=== PATIENT | male | born 1955 | race Asian ===

== ENCOUNTER 2016-09-07 14:12 | Inpatient (IN) | payer OTHER, MEDICARE ==
[2016-09-07] MEDS ORDERED: ASPIRIN 81 MG TABLET, CHEWABLE PO ONE (14:53)
[2016-09-07] MEDS ORDERED: DILTIAZEM HCL/D5W 125 MG/125 ML RTUINJ IV ONE (15:01)
[2016-09-07] MEDS ORDERED: DILTIAZEM HCL INJ 25 MG/5 ML VIAL ONE (15:02)
--- NOTE | 2016-09-07 15:07 | ER Document Report ---
ED General - General Chief Complaint: Other Stated Complaint: VOMITING,URINARY PROBLEMS Notes: Patient comes in because he says he is vomited once today, a couple of hours ago. Says he hasn't slept for the last couple of days as he is getting up at night and going to urinate every 30 minutes. Patient has a history of atrial fibrillation and hypertension and decided 4 days ago that these medicines were causing him problems and side effects so he stopped taking all of his medications. The meds that he stopped taking include metoprolol, lisinopril, clonidine, diltiazem, and Plavix. Patient has a history of a hemorrhagic stroke and has a Watchman Device implanted (at [place], in November,.) Patient says he had a hemorrhagic stroke approximately one year ago. Patient was also on medications for NIDDM which he stopped. Denies any chest pains. Denies any difficulty breathing or shortness of breath. Denies any fever. Patient was transported here by EMS. En route, blood pressures were running over 200 systolic with diastolics as high as 160 TRAVEL OUTSIDE OF THE [place] IN LAST 30 DAYS: No - Related Data Allergies/Adverse Reactions: No Known Allergies Allergy (Unverified 08/26/15 19:09) Past Medical History - Social History Smoking Status: Unknown if Ever Smoked Cigarette use (# per day): No Frequency of alcohol use: None Drug Abuse: None Family History: Reviewed & Not Pertinent - Past Medical History Cardiac Medical History: Reports: Hx Atrial Fibrillation, Hx Coronary Artery Disease, Hx Heart Attack - "Massive" heart attack in 2010 had balloon angioplasty, no stents., Hx Hypercholesterolemia, Hx Hypertension Neurological Medical History: Reports: Hx Cerebrovascular Accident - Hemorrhagic left MCA territory infarct on 08/26/2015 Endocrine Medical History: Reports: Hx Diabetes Mellitus Type 2 Past Surgical History: Reports: Hx Cardiac Surgery - watchmen device 2016, Hx Kidney (Renal Surgery) - Renal stent - Immunizations Hx Diphtheria, Pertussis, Tetanus Vaccination: - Unknown Review of Systems - Review of Systems Notes: REVIEW OF SYSTEMS: CONSTITUTIONAL : Denies fever. EENT: Denies eye, ear, nose or mouth or throat pain or other symptoms. CARDIOVASCULAR: Denies chest pain. RESPIRATORY: Denies cough, chest congestion, or shortness of breath. GASTROINTESTINAL: Denies abdominal pain but vomited once. GENITOURINARY: Denies difficulty or painful urinating, urinary frequency, blood in urine. MUSCULOSKELETAL: Denies back or neck pain. Denies joint pain or swelling. SKIN: Denies rash or skin lesions. Has not noted any yellow color to his skin. NEUROLOGICAL: Denies LOC or altered mental status. Denies headache. Denies sensory loss or motor deficits. ALL OTHER SYSTEMS REVIEWED AND NEGATIVE. Physical Exam - Vital signs Vitals: Temp Pulse Resp BP Pulse Ox 98.8 F 134 H 20 196/152 H 97 09/07/16 14:25 09/07/16 14:25 09/07/16 14:25 09/07/16 14:25 09/07/16 14:25 Interpretation: Hypertensive, Tachycardic. No: Febrile - Notes Notes: PHYSICAL EXAMINATION: GENERAL: Well-appearing, in no acute distress. Vital signs show extremely high blood pressure with a diastolic of 150 260 and a rapid ventricular rate of 135 with underlying atrial fibrillation. HEAD: Atraumatic, normocephalic. EYES: Pupils equal round and reactive to light, extraocular movements intact. Sclerae appear to me to be somewhat icteric. ENT: oropharynx clear without exudates. Moist mucous membranes. NECK: Normal range of motion, supple. LUNGS: Breath sounds clear and equal bilaterally. HEART: Irregular rate and rhythm without murmurs. ABDOMEN: Soft, nontender. No guarding or rebound. No masses felt. BACK: No tenderness throughout entire back. EXTREMITIES: Normal range of motion without pain. Negative Homans bilaterally. NEUROLOGICAL: Normal speech, normal gait. Normal sensory, motor, and reflex exams. Awake, alert, and oriented x3. Cranial nerves normal. PSYCH: Normal mood, normal affect. SKIN: Warm, dry, no rashes. Course - Re-evaluation Re-evalutation: 09/07/16 17:27 Discussed case with hospitalist, , who will be admitting the patient to [facility] - Vital Signs Vital signs: Temp Pulse Resp BP Pulse Ox 98.1 F 134 H 20 161/118 H 96 09/07/16 19:06 09/07/16 14:25 09/07/16 19:06 09/07/16 19:06 09/07/16 19:06 - Laboratory Result Diagrams: 09/07/16 15:20 09/07/16 15:20 Laboratory results interpreted by me: 09/07/16 09/07/16 15:20 15:20 RDW 14.5 H Glucose 370 H - Diagnostic Test Radiology results interpreted by me: 09/07/16 17:26 Chest x-ray shows slightly enlarged heart, but otherwise normal. No evidence of congestive heart failure. - EKG Interpretation by Me Rate: Tachycardia Rhythm: A.Fib, PVC's Critical Care Note - Critical Care Note Total time excluding time spent on procedures (mins): 45 Discharge - Discharge Clinical Impression: Atrial fibrillation with RVR, Severe hypertension Admitting Provider: Hospitalist Unit Admitted: [facility]
[2016-09-07] MEDS ORDERED: DILTIAZEM HCL INJ 25 MG/5 ML VIAL IV ONE (15:16)
[2016-09-07] MEDS ORDERED: DILTIAZEM HCL/D5W 125 ML IV PRN ×2 (15:17→17:49)
[2016-09-07 15:44] LABS: ABSOLUTE BASOPHILS # (AUTO) 0.1 10^3/uL (0.0-0.2); ABSOLUTE EOSINOPHILS # (AUTO) 0.1 10^3/uL (0.0-0.6); ABSOLUTE LYMPHOCYTES (AUTO) 2.5 10^3/uL (0.5-4.7); ABSOLUTE MONOCYTES (AUTO) 0.9 10^3/uL (0.1-1.4); ABSOLUTE NEUT (AUTO) 6.7 10^3/uL (1.7-8.2); BASOPHILS % (AUTO) 1.1 % (0-2); EOSINOPHILS % (AUTO) 1.1 % (0-6); HEMATOCRIT 49.5 % (37.9-51.0); HEMOGLOBIN 16.6 g/dL (13.5-17.0); HGB HCT DIFFERENCE 0.3; LYMPHOCYTES % (AUTO) 23.9 % (13-45); MEAN CORPUSCULAR HGB CONC 33.5 g/dL (32.0-36.0); MEAN CORPUSCULAR VOLUME 90 fl (80-97); MONOCYTES % (AUTO) 8.5 % (3-13); RED BLOOD COUNT 5.52 10^6/uL (4.35-5.55); RED CELL DISTRIBUTION WIDTH 14.5 % (11.5-14.0); SEGMENTED NEUTROPHILS % (AUTO) 65.4 % (42-78); WHITE BLOOD COUNT 10.3 10^3/uL (4.0-10.5)
[2016-09-07 16:01] LABS: ALANINE AMINOTRANSFERASE 38 U/L (21-72); ALBUMIN 3.9 g/dL (3.5-5.0); ALKALINE PHOSPHATASE 99 U/L (38-126); ANION GAP 15 (5-19); ASPARTATE AMINO TRANSFERASE 27 U/L (17-59); BILIRUBIN,DIRECT 0.3 mg/dL (0.0-0.4); BILIRUBIN,TOTAL 1.1 mg/dL (0.2-1.3); BLOOD UREA NITROGEN 17 mg/dL (7-20); CALCIUM 10.2 mg/dL (8.4-10.2); CARBON DIOXIDE 25 mmol/L (22-30); CHLORIDE 99 mmol/L (98-107); CREATINE KINASE 158 U/L (55-170); CREATININE RESULT 0.89 mg/dL (0.52-1.25); GLUCOSE 370 mg/dL (75-110); LIPASE 225.6 U/L (23-300); POTASSIUM 4.3 mmol/L (3.6-5.0); SODIUM 138.5 mmol/L (137-145); TOTAL PROTEIN 7.6 g/dL (6.3-8.2)
[2016-09-07 16:18] LABS: CREATINE KINASE MB 2.87 ng/mL (<4.55)
[2016-09-07 16:23] LABS: TROPONIN I 0.034 ng/mL
--- NOTE | 2016-09-07 16:23 | EKG REPORT ---
SEVERITY:- ABNORMAL ECG - ATRIAL FIBRILLATION, V-RATE 98-170 WITH PVC PROBABLE INFERIOR INFARCT, AGE INDETERMINATE CONSIDER POSTERIOR WALL INVOLVEMENT LATERAL LEADS ARE ALSO INVOLVED : Confirmed by: Tae Martinez MD 07-Sep-2016 16:23:02
[2016-09-07] MEDS ORDERED: ACETAMINOPHEN 325 MG TABLET PO PRN (17:44)
[2016-09-07] MEDS ORDERED: ALBUTEROL SULFATE 0.083% NEB 2.5 MG/3 ML AMPUL NEB PRN (17:44)
[2016-09-07] MEDS ORDERED: ONDANSETRON 4 MG TAB.RAPDIS PO PRN (17:44)
[2016-09-07] MEDS ORDERED: ONDANSETRON HCL INJ/PF 4 MG/2 ML SDV IV PRN (17:44)
[2016-09-07] MEDS ORDERED: NORMAL SALINE 1000 ML 1,000 ML IV PRN (17:44)
[2016-09-07] MEDS ORDERED: DEXTROSE 50%-WATER 25 GM/50 ML DISP.SYRIN IV PRN ×2 (17:48)
[2016-09-07] MEDS ORDERED: HYDRALAZINE HCL INJ/PF 20 MG/1 ML SDV IV PRN (17:48)
[2016-09-07] MEDS ORDERED: GLUCAGON,HUMAN RECOMB 1 MG INJ IM PRN (17:48)
[2016-09-07] MEDS ORDERED: DEXTROSE 40% GEL 15 GM TUBE PO PRN ×2 (17:48)
[2016-09-07] MEDS ORDERED: CLONIDINE HCL 0.2 MG TABLET PO ONE (17:48)
--- NOTE | 2016-09-07 18:09 | PDOC H&P ---
History of Present Illness Admission Date/PCP: 09/07/16 17:36 JOSEFINA DILLARD Patient complains of: Nausea, vomiting and palpitations History of Present Illness: DANNI CROUCH is a 61 year old male who has a history of hypertension and atrial fibrillation who stopped all of his medication 4 days ago because he thought they were making him feel poorly. He since that time has had problems with palpitations noted to have A. fib with rapid ventricular rate. He also has had vomiting and nausea for the last day and presented with a blood pressure that was very elevated. Patient has been on clonidine, lisinopril, metoprolol, diltiazem for his blood pressure has not taken any of those the last 4 days. Patient was started diltiazem drip for his atrial fibrillation. Patient denies having any chest pain associated with this. He denies any loss of consciousness. He denies any hematuria. He denies any shortness of breath or dyspnea on exertion. he is admitted for A. fib with rapid ventricular rate along with hypertensive emergency. Past Medical History Cardiac Medical History: Reports: Atrial Fibrillation, Coronary Artery Disease, Myocardial Infarction - "Massive" heart attack in 2010 had balloon angioplasty, no stents., Hyperlipidema, Hypertension Pulmonary Medical History: Reports: None EENT Medical History: Reports: None Neurological Medical History: Reports: Ischemic CVA Endocrine Medical History: Reports: Diabetes Mellitus Type 2 Malignancy Medical History: Reports: None Musculoskeltal Medical History: Reports: Gout Skin Medical History: Reports: None Psychiatric Medical History: Reports: None Traumatic Medical History: Reports: None Hematology: Reports: None Infectious Medical History: Reports: None Past Surgical History Past Surgical History: Reports: Cardiac Catheterization - With balloon angioplasty., Vascular Surgery - Renal artery stent placement, Other - Watchman' s device placed at [place] last year Social History Information Source: Patient Lives with: Spouse/Significant other Smoking Status: Former Smoker Frequency of Alcohol Use: None Hx Recreational Drug Use: No Drugs: None Hx Prescription Drug Abuse: No - Advance Directive Resuscitation Status: Full Code Surrogate healthcare decision maker:: His Family History Family History: Mother at age 85 with no chronic health problems. Father at age 62 with coronary artery disease. Parental Family History Reviewed: Yes Children Family History Reviewed: No Sibling(s) Family History Reviewed.: No Medication/Allergy Allergies/Adverse Reactions: No Known Allergies Allergy (Unverified 08/26/15 19:09) Review of Systems Constitutional: ABSENT: chills, fever(s), headache(s), weight gain, weight loss Eyes: ABSENT: visual disturbances Ears: ABSENT: hearing changes Cardiovascular: PRESENT: palpitations. ABSENT: chest pain, dyspnea on exertion , edema, orthropnea Respiratory: ABSENT: cough, hemoptysis Gastrointestinal: PRESENT: nausea, vomiting. ABSENT: abdominal pain, constipation, diarrhea, hematemesis, hematochezia Genitourinary: ABSENT: dysuria, hematuria Musculoskeletal: ABSENT: joint swelling Neurological: PRESENT: weakness - Right-sided weakness from previous CVA. Psychiatric: ABSENT: anxiety, depression Endocrine: ABSENT: cold intolerance, heat intolerance, polydipsia, polyuria Hematologic/Lymphatic: ABSENT: easy bleeding, easy bruising Physical Exam Vital Signs: Temp Pulse Resp BP Pulse Ox 98.8 F 134 H 20 197/137 H 95 09/07/16 14:25 09/07/16 14:25 09/07/16 17:21 09/07/16 17:21 09/07/16 17:21 General appearance: PRESENT: no acute distress, well-developed, well-nourished Head exam: PRESENT: atraumatic, normocephalic Eye exam: PRESENT: conjunctiva pink, EOMI, PERRLA. ABSENT: scleral icterus Ear exam: PRESENT: normal external ear exam Mouth exam: PRESENT: moist, tongue midline Neck exam: ABSENT: carotid bruit, JVD, lymphadenopathy, thyromegaly Respiratory exam: PRESENT: clear to auscultation patrizia. ABSENT: rales, rhonchi, wheezes Cardiovascular exam: PRESENT: RRR. ABSENT: diastolic murmur, rubs, systolic murmur Pulses: PRESENT: normal dorsalis pedis pul Vascular exam: PRESENT: normal capillary refill GI/Abdominal exam: PRESENT: normal bowel sounds, soft. ABSENT: distended, guarding, mass, organolmegaly, rebound, tenderness Rectal exam: PRESENT: deferred Extremities exam: ABSENT: calf tenderness, clubbing, pedal edema Neurological exam: PRESENT: alert, awake, oriented to person, oriented to place , oriented to time, oriented to situation, CN II-XII grossly intact, motor sensory deficit - Strength is 4 out of 5 on the right Psychiatric exam: PRESENT: appropriate affect Skin exam: PRESENT: dry, intact, warm. ABSENT: cyanosis, rash Results Impressions: Chest X-Ray 09/07/16 14:54 IMPRESSION: NO ACUTE RADIOGRAPHIC FINDING IN THE CHEST. NO SIGNIFICANT CHANGE FROM PRIOR STUDY. Assessment & Plan - Diagnosis (1) Atrial fibrillation with RVR Is this a current diagnosis for this admission?: YesPlan: The patient has atrial fibrillation with rapid ventricular rate secondary to stopping his medications. Patient currently is on a diltiazem drip. We'll check serial cardiac enzymes to make certain he has not had an acute cardiac event. The patient has not been on anticoagulation for his atrial fibrillation because of having a hemorrhagic stroke previously. He has had a watchman device placed at [place] last year. (2) Hypertensive emergency Is this a current diagnosis for this admission?: YesPlan: The patient has very elevated blood pressures. This is secondary to stopping his medications especially his clonidine. We will go ahead and give 0.3 clonidine now and continue with the diltiazem drip and restart him on his oral medications. We'll also give IV hydralazine if needed. The patient does not have any evidence for congestive heart failure but did have nausea and vomiting most likely related to the uncontrolled hypertension. (3) Diabetes mellitus Is this a current diagnosis for this admission?: YesPlan: He has not been taking his medications. We'll start him on Lantus as well as sliding scale insulin. (4) Coronary artery disease Is this a current diagnosis for this admission?: YesPlan: Patient will be restarted on his Plavix. We'll check serial cardiac enzymes to make certain he has not had an acute cardiac event as cause for his age fibrillation. He denies having any chest pain evening in spite of having very elevated blood pressures. (5) CVA (cerebral vascular accident) Is this a current diagnosis for this admission?: YesPlan: Patient has had a previous CVA. We'll continue with his Plavix as he had been taking prior to 4 days ago. - Time Time Spent: 50 to 70 Minutes - Inpatient Certification Medical Necessity: Need Close Monitoring Due to Risk of Patient Decompensation - Plan Summary Plan Summary: We'll admit as an inpatient as I anticipate this require greater than a 2 midnight stay because of his need for IV medications for control of his blood pressure.
[2016-09-07] MEDS ORDERED: METOPROLOL TARTRATE 50 MG TABLET PO ONE (18:15)
[2016-09-07] MEDS ORDERED: METOPROLOL TARTRATE PF/INJ 5 MG/5 ML SDV IV ONE (18:20)
[2016-09-07] MEDS: INSULIN LISPRO 100 UNIT/ML 3 ML VIAL SUBCUT PRN (18:27)
[2016-09-07] MEDS: CLONIDINE HCL 0.2 MG TABLET PO SCH (21:00)
[2016-09-07] MEDS: METOPROLOL TARTRATE 50 MG TABLET PO SCH (21:00)
[2016-09-07] MEDS: FAMOTIDINE 20 MG TABLET PO SCH (21:00)
[2016-09-07] MEDS ORDERED: INSULIN GLARGINE,HUM.REC.ANLOG 300 UNIT/3 ML INSULN.PEN SUBCUT ONE (21:45)
[2016-09-07 21:55] LABS: CREATINE KINASE MB 2.13 ng/mL (<4.55); TROPONIN I 0.034 ng/mL
[2016-09-07] MEDS ORDERED: INSULIN GLARGINE,HUM.REC.ANLOG 300 UNIT/3 ML INSULN.PEN SUBCUT SCH (22:00)
[2016-09-08 04:19] LABS: ANION GAP 7 (5-19); BLOOD UREA NITROGEN 26 mg/dL (7-20); CALCIUM 9.1 mg/dL (8.4-10.2); CARBON DIOXIDE 25 mmol/L (22-30); CHLORIDE 103 mmol/L (98-107); CREATINE KINASE 90 U/L (55-170); CREATININE RESULT 1.19 mg/dL (0.52-1.25); MAGNESIUM 2.1 mg/dL (1.6-2.3); POTASSIUM 4.3 mmol/L (3.6-5.0); SODIUM 135.1 mmol/L (137-145)
[2016-09-08 04:27] LABS: HEMATOCRIT 43.5 % (37.9-51.0); MEAN CORPUSCULAR HEMOGLOBIN 29.8 pg (27.0-33.4); MEAN CORPUSCULAR HGB CONC 33.2 g/dL (32.0-36.0); MEAN CORPUSCULAR VOLUME 90 fl (80-97); RED BLOOD COUNT 4.85 10^6/uL (4.35-5.55); RED CELL DISTRIBUTION WIDTH 14.5 % (11.5-14.0); WHITE BLOOD COUNT 7.1 10^3/uL (4.0-10.5)
[2016-09-08 04:29] LABS: CREATINE KINASE MB 1.63 ng/mL (<4.55); TROPONIN I 0.035 ng/mL
[2016-09-08 04:33] LABS: GLUCOSE 511 mg/dL (75-110)
[2016-09-08 04:39] LABS: HEMOGLOBIN 14.5 g/dL (13.5-17.0)
[2016-09-08] MEDS: INSULIN LISPRO 100 UNIT/ML 3 ML VIAL SUBCUT PRN ×2 (04:56→11:58)
[2016-09-08] MEDS: CLONIDINE HCL 0.2 MG TABLET PO SCH (09:00)
[2016-09-08] MEDS: METOPROLOL TARTRATE 50 MG TABLET PO SCH (09:01)
[2016-09-08] MEDS: FAMOTIDINE 20 MG TABLET PO SCH (09:02)
[2016-09-08] MEDS ORDERED: DILTIAZEM HCL 180 MG CAPSULE.CR PO SCH (10:00)
[2016-09-08] MEDS ORDERED: CLOPIDOGREL BISULFATE 75 MG TABLET PO SCH (10:00)
[2016-09-08 10:06] LABS: CREATINE KINASE MB 1.84 ng/mL (<4.55); TROPONIN I 0.02 ng/mL
[2016-09-08 11:23] VITALS: BP 139/112
--- NOTE | 2016-09-08 13:11 | PDOC DISCHARGE SUMMARY ---
General - Admit/Disc Date/PCP Admission Date/Primary Care Provider: 09/07/16 17:44 GEORGE DILLARD-Delfina Discharge Date: 09/08/16 - Discharge Diagnosis (1) Atrial fibrillation with RVR Is this a current diagnosis for this admission?: YesSummary: Patient was switched from IV diltiazem to by mouth diltiazem has remained rate controlled. (2) Hypertensive emergency Is this a current diagnosis for this admission?: YesSummary: Most likely made worse by his clonidine withdrawal. Patient has been restarted back on his clonidine and his blood pressure is in a good range. I have decreased his clonidine dose to 0.3 twice a day. Will defer to his primary care doctor whether or not he should continue on clonidine given his recent noncompliance. (3) Diabetes mellitus Is this a current diagnosis for this admission?: YesSummary: Patient was restarted on his oral agents. (4) Coronary artery disease Is this a current diagnosis for this admission?: YesSummary: Troponins have been flat. Patient instructed to take his Plavix every day. (5) CVA (cerebral vascular accident) Is this a current diagnosis for this admission?: YesSummary: Patient has a history of a hemorrhagic CVA. Because of this he is not a good candidate for anticoagulation for his atrial fibrillation. Continue Plavix. - Additional Information Resuscitation Status: Full Code Discharge Diet: Cardiac, Diabetic Discharge Activity: Activity As Tolerated Home Medications: Aspirin [Aspirin EC] 81 mg PO DAILY 09/08/16 Atorvastatin Calcium [Lipitor 20 mg Tablet] 20 mg PO DAILY 09/08/16 Clonidine HCl [Catapres 0.2 mg Tablet] 0.3 mg PO Q12 tablet 09/08/16 Clopidogrel Bisulfate [Plavix 75 mg Tablet] 75 mg PO DAILY 09/08/16 Diltiazem HCl [Cardizem Cd 180 mg Capsule] 360 mg PO DAILY #30 capsule.cr Ergocalciferol (Vitamin D2) [Vitamin D2] 50,000 unit PO ARREDONDO@1000 09/08/16 Metformin HCl [Glucophage] 1,000 mg PO BID 09/08/16 Metoprolol Tartrate [Lopressor 50 mg Tablet] 50 mg PO Q12 #60 tablet 09/08/16 History of Present Illness History of Present Illness: DANNI CROUCH is a 61 year old male who has a history of hypertension and atrial fibrillation who stopped all of his medication 4 days ago because he thought they were making him feel poorly. He since that time has had problems with palpitations noted to have A. fib with rapid ventricular rate. He also has had vomiting and nausea for the last day and presented with a blood pressure that was very elevated. Patient has been on clonidine, lisinopril, metoprolol, diltiazem for his blood pressure has not taken any of those the last 4 days. Patient was started diltiazem drip for his atrial fibrillation. Patient denies having any chest pain associated with this. He denies any loss of consciousness. He denies any hematuria. He denies any shortness of breath or dyspnea on exertion. he is admitted for A. fib with rapid ventricular rate along with hypertensive emergency. Hospital Course Hospital Course: Patient was admitted with atrial fibrillation with rapid ventricular rate. He also had hypertensive emergency secondary to stopping his antihypertensives. Patient was started on a diltiazem drip as well as been restarted on his clonidine and other medications. His heart rate quickly returned to normal rate and he was switched from IV diltiazem to by mouth diltiazem. His clonidine dose was decreased and his metoprolol dose both were decreased because of some relative bradycardia with heart rates in the 50s. He was asymptomatic with this. Was also given insulin overnight and is instructed to restart his oral hypoglycemic agents. He had cardiac enzymes drawn and they were flat. Physical Exam Vital Signs: Temp Pulse Resp BP Pulse Ox 97.6 F 84 20 139/112 H 98 09/08/16 12:08 09/08/16 12:08 09/08/16 12:08 09/08/16 12:08 09/08/16 12:08 Intake & Output 09/07/16 09/08/16 09/09/16 06:59 06:59 06:59 Intake Total 1655 Output Total 300 Balance 1355 Weight 80.7 kg General appearance: PRESENT: no acute distress Eye exam: PRESENT: conjunctiva pink. ABSENT: scleral icterus Mouth exam: PRESENT: moist, tongue midline Neck exam: ABSENT: carotid bruit, JVD, lymphadenopathy, thyromegaly Respiratory exam: PRESENT: clear to auscultation patrizia. ABSENT: rales, rhonchi, wheezes Cardiovascular exam: PRESENT: RRR. ABSENT: diastolic murmur, rubs, systolic murmur GI/Abdominal exam: PRESENT: normal bowel sounds, soft. ABSENT: distended, guarding, mass, organolmegaly, rebound, tenderness Extremities exam: ABSENT: calf tenderness, clubbing, pedal edema Neurological exam: PRESENT: alert, awake, oriented to person, oriented to place , oriented to time, oriented to situation, CN II-XII grossly intact, motor sensory deficit - Right-sided weakness. Psychiatric exam: PRESENT: appropriate affect Skin exam: PRESENT: dry, intact, warm. ABSENT: cyanosis, rash Results Laboratory Results: 09/08/16 03:30 09/08/16 06:46 09/08/16 09/08/16 09/08/16 03:30 03:30 06:46 WBC 7.1 RBC 4.85 Hgb 14.5 D Hct 43.5 MCV 90 MCH 29.8 MCHC 33.2 RDW 14.5 H Plt Count 199 Sodium 135.1 L Potassium 4.3 Chloride 103 Carbon Dioxide 25 Anion Gap 7 BUN 26 H Creatinine 1.19 Est GFR ( Amer) > 60 Est GFR (Non-Af Amer) > 60 Glucose 511 H* 382 H Calcium 9.1 Magnesium 2.1 09/07/16 09/07/16 09/08/16 21:10 21:10 03:30 Creatine Kinase 123 90 CK-MB (CK-2) 2.13 Troponin I 0.034 09/08/16 09/08/16 09/08/16 03:30 09:10 09:10 Creatine Kinase 88 CK-MB (CK-2) 1.63 1.84 Troponin I 0.035 0.020 Impressions: Chest X-Ray 09/07/16 14:54 IMPRESSION: NO ACUTE RADIOGRAPHIC FINDING IN THE CHEST. NO SIGNIFICANT CHANGE FROM PRIOR STUDY. Qualifiers PATEINT BEING DISCHARGED WITH ANY OF THE FOLLOWING DIAGNOSIS?: No Plan Discharge Plan: Patient is discharged to home. The patient is educated on the importance of being compliant with his medications especially the the clonidine because of his hypertensive emergency. Time Spent: Greater than 30 Minutes
== END 2016-09-08 13:13 | disposition home or self-care (01) | DRG 309 ==
LOC: ER 14:12 → EH 17:36 → UNDOADMIN 17:36 → EH 17:44 → 3W 22:24
PROVIDERS: ADMIT Internal Medicine; ATTEND Internal Medicine
DX: I48.91 Unspecified atrial fibrillation (principal); I16.1 Hypertensive emergency; T46.5X6A Underdosing of other antihypertensive drugs, initial encounter; I10 Essential (primary) hypertension; I25.10 Atherosclerotic heart disease of native coronary artery without angina pectoris; M10.9 Gout, unspecified; E11.9 Type 2 diabetes mellitus without complications; I25.2 Old myocardial infarction; Z86.73 Personal history of transient ischemic attack (TIA), and cerebral infarction without residual deficits; Z93.6 Other artificial openings of urinary tract status; Z87.891 Personal history of nicotine dependence; Z82.49 Family history of ischemic heart disease and other diseases of the circulatory system; Z91.128 Patient's intentional underdosing of medication regimen for other reason; Z79.02 Long term (current) use of antithrombotics/antiplatelets; Z79.899 Other long term (current) drug therapy
CPT/HCPCS: 36415; 71010; 80048; 80053; 82550; 82553; 82947; 82962; 83690; 83735; 84484; 85025; 85027; 93005; 93010; 94660; 96365; 96366; 99291; J1815; J3490; J7030

== ENCOUNTER 2016-12-13 12:46 | Inpatient (IN) | payer OTHER, MEDICARE ==
--- NOTE | 2016-12-13 13:04 | ER Document Report ---
ED Medical Screen (RME) - General Chief Complaint: General Weakness Stated Complaint: WEAKNESS Time Seen by Provider: 12/13/16 13:02 Mode of Arrival: Wheelchair Information source: Patient TRAVEL OUTSIDE OF THE [place] IN LAST 30 DAYS: No - HPI Patient complains to provider of: weakness Onset: Other - pt. has h/o DM and HTN (has stopped meds for both) and has had generalized weakness for the past 8 days with exacerbation today. - Related Data Allergies/Adverse Reactions: No Known Allergies Allergy (Unverified 08/26/15 19:09) Past Medical History - Past Medical History Cardiac Medical History: Reports: Hx Atrial Fibrillation, Hx Coronary Artery Disease, Hx Heart Attack - "Massive" heart attack in 2010 had balloon angioplasty, no stents., Hx Hypercholesterolemia, Hx Hypertension Neurological Medical History: Reports: Hx Cerebrovascular Accident - Hemorrhagic left MCA territory infarct on 08/26/2015 Endocrine Medical History: Reports: Hx Diabetes Mellitus Type 2 Renal/ Medical History: Denies: Hx Peritoneal Dialysis Musculoskeltal Medical History: Reports Hx Gout Psychiatric Medical History: Denies: Hx Depression Past Surgical History: Reports: Hx Cardiac Catheterization - With balloon angioplasty., Hx Cardiac Surgery - watchmen device 2015, Hx Kidney (Renal Surgery) - Renal stent, Hx Vascular Surgery - Renal artery stent placement, Other - Watchman's device placed at [place] last year - Immunizations Hx Diphtheria, Pertussis, Tetanus Vaccination: - Unknown Physical Exam - Vital signs Vitals: Temp Pulse Resp BP Pulse Ox 98.3 F 82 16 148/100 H 96 12/13/16 12:51 12/13/16 12:51 12/13/16 12:51 12/13/16 12:51 12/13/16 12:51 Course - Vital Signs Vital signs: Temp Pulse Resp BP Pulse Ox 98.3 F 82 16 148/100 H 96 12/13/16 12:51 12/13/16 12:51 12/13/16 12:51 12/13/16 12:51 12/13/16 12:51
[2016-12-13 13:55] LABS: ABSOLUTE BASOPHILS # (AUTO) 0.1 10^3/uL (0.0-0.2); ABSOLUTE EOSINOPHILS # (AUTO) 0.2 10^3/uL (0.0-0.6); ABSOLUTE LYMPHOCYTES (AUTO) 1.9 10^3/uL (0.5-4.7); ABSOLUTE MONOCYTES (AUTO) 0.5 10^3/uL (0.1-1.4); ABSOLUTE NEUT (AUTO) 3.7 10^3/uL (1.7-8.2); BASOPHILS % (AUTO) 0.9 % (0-2); EOSINOPHILS % (AUTO) 2.9 % (0-6); HEMATOCRIT 45.3 % (37.9-51.0); HEMOGLOBIN 15.1 g/dL (13.5-17.0); LYMPHOCYTES % (AUTO) 29.8 % (13-45); MEAN CORPUSCULAR HEMOGLOBIN 30.1 pg (27.0-33.4); MEAN CORPUSCULAR HGB CONC 33.4 g/dL (32.0-36.0); MEAN CORPUSCULAR VOLUME 90 fl (80-97); MONOCYTES % (AUTO) 8.6 % (3-13); RED BLOOD COUNT 5.03 10^6/uL (4.35-5.55); SEGMENTED NEUTROPHILS % (AUTO) 57.8 % (42-78); WHITE BLOOD COUNT 6.4 10^3/uL (4.0-10.5)
--- NOTE | 2016-12-13 13:57 | RADIOLOGY REPORT (SQ) ---
EXAM DESCRIPTION: CHEST PA/LAT COMPLETED DATE/TIME: 12/13/2016 1:37 pm REASON FOR STUDY: weakness COMPARISON: August 2005 EXAM PARAMETERS: NUMBER OF VIEWS: two views TECHNIQUE: Digital Frontal and Lateral radiographic views of the chest acquired. RADIATION DOSE: NA LIMITATIONS: none FINDINGS: LUNGS AND PLEURA: No opacities, masses or pneumothorax. No pleural effusion. MEDIASTINUM AND HILAR STRUCTURES: No masses or contour abnormalities. HEART AND VASCULAR STRUCTURES: Cardiac silhouette remains at the upper limits of normal in size. Tor tuous thoracic aorta is again identified BONES: No acute findings. HARDWARE: None in the chest. OTHER: No other significant finding. IMPRESSION: No significant interval change. No acute findings. Other findings as noted above TECHNICAL DOCUMENTATION: JOB ID: [id number] [employer]- All Rights Reserved
[2016-12-13 14:04] LABS: APPEARANCE,URINE CLEAR; BILIRUBIN,URINE NEGATIVE (NEGATIVE); GLUCOSE, URINE >=500 mg/dL (NEGATIVE); KETONES,URINE NEGATIVE (NEGATIVE); LEUKOCYTE ESTERASE,URINE NEGATIVE (NEGATIVE); NITRITE,URINE NEGATIVE (NEGATIVE); PROTEIN,URINE 100 mg/dL (NEGATIVE); URINE SPECIFIC GRAVITY 1.031; UROBILINOGEN,URINE NEGATIVE mg/dL (<2.0)
[2016-12-13 14:10] LABS: ALANINE AMINOTRANSFERASE 31 U/L (21-72); ALKALINE PHOSPHATASE 141 U/L (38-126); ANION GAP 10 (5-19); ASPARTATE AMINO TRANSFERASE 21 U/L (17-59); BILIRUBIN,DIRECT 0.3 mg/dL (0.0-0.4); BILIRUBIN,TOTAL 0.5 mg/dL (0.2-1.3); BLOOD UREA NITROGEN 18 mg/dL (7-20); CALCIUM 9.1 mg/dL (8.4-10.2); CARBON DIOXIDE 26 mmol/L (22-30); CHLORIDE 95 mmol/L (98-107); CREATINE KINASE 144 U/L (55-170); CREATININE RESULT 0.75 mg/dL (0.52-1.25); POTASSIUM 4.2 mmol/L (3.6-5.0); SODIUM 130.9 mmol/L (137-145); TOTAL PROTEIN 6.2 g/dL (6.3-8.2)
[2016-12-13 14:20] LABS: GLUCOSE 665 mg/dL (75-110)
--- NOTE | 2016-12-13 14:20 | ER Document Report ---
ED General - General Chief Complaint: General Weakness Stated Complaint: WEAKNESS Time Seen by Provider: 12/13/16 14:03 Mode of Arrival: Wheelchair Information source: Patient Notes: Patient presents emergency department with complaints of feeling weak for the past 2 weeks. Patient reports history of CVA, diabetes, hypertension, atrial fib. Patient reports that he has quit taking all his medications, except for the Cardizem, when he had a stroke. He reports all those medications made him feel sleepy he had blurred vision discoloration in his feet and he just did not feel good. He reports since he quit taking all his medications he feels a lot better. He can see his , he is not sleeping as much. He reports the past 2 weeks he has felt weak but denies vomiting diarrhea. He reports today he ran out of his cardizem. TRAVEL OUTSIDE OF THE [place] IN LAST 30 DAYS: No - HPI Onset: Other - 2 weeks Onset/Duration: Persistent Quality of pain: No pain Severity: None Associated symptoms: None Exacerbated by: Denies Relieved by: Denies Similar symptoms previously: No Recently seen / treated by doctor: No - Related Data Allergies/Adverse Reactions: No Known Allergies Allergy (Verified 12/13/16 13:04) Home Medications: Current Home Medications Aspirin [Aspirin 81 mg Chewable Tablet] 81 mg PO DAILY 12/13/16 [History] Clonidine HCl [Catapres 0.3 mg Tablet] 0.3 mg PO Q12 12/13/16 [History] Diltiazem HCl [Diltiazem ER] 360 mg PO DAILY 12/13/16 [History] Metformin HCl [Glucophage] 1,000 mg PO Q12 12/13/16 [History] Past Medical History - General Information source: Patient - Social History Smoking Status: Current Every Day Smoker Cigarette use (# per day): Yes Chew tobacco use (# tins/day): No Frequency of alcohol use: Social Drug Abuse: None Lives with: Family Family History: Reviewed & Not Pertinent Patient has suicidal ideation: No Patient has homicidal ideation: No - Past Medical History Cardiac Medical History: Reports: Hx Atrial Fibrillation, Hx Coronary Artery Disease, Hx Heart Attack - "Massive" heart attack in 2010 had balloon angioplasty, no stents., Hx Hypercholesterolemia, Hx Hypertension Neurological Medical History: Reports: Hx Cerebrovascular Accident - Hemorrhagic left MCA territory infarct on 08/26/2015 Endocrine Medical History: Reports: Hx Diabetes Mellitus Type 2 Renal/ Medical History: Denies: Hx Peritoneal Dialysis Musculoskeltal Medical History: Reports Hx Gout Psychiatric Medical History: Denies: Hx Depression Past Surgical History: Reports: Hx Cardiac Catheterization - With balloon angioplasty., Hx Cardiac Surgery - watchmen device 2016, Hx Kidney (Renal Surgery) - Renal stent, Hx Vascular Surgery - Renal artery stent placement, Other - Watchman's device placed at [place] last year - Immunizations Hx Diphtheria, Pertussis, Tetanus Vaccination: - Unknown Review of Systems - Review of Systems Notes: Review HPI for review of systems., All other systems negative Physical Exam - Vital signs Vitals: Temp Pulse Resp BP Pulse Ox 98.3 F 82 16 148/100 H 96 12/13/16 12:51 12/13/16 12:51 12/13/16 12:51 12/13/16 12:51 12/13/16 12:51 - Notes Notes: PHYSICAL EXAMINATION: GENERAL: Well-appearing and in no acute distress nontoxic looking HEAD: Atraumatic, normocephalic. EYES: Pupils equal round and reactive to light, extraocular movements intact, sclera anicteric, conjunctiva are normal. ENT: nares patent, oropharynx clear without exudates. Moist mucous membranes. NECK: Normal range of motion, supple without lymphadenopathy LUNGS: CTAB and equal. No wheezes rales or rhonchi. HEART: afib, irregular, RVR at 110-140's ABDOMEN: Soft, no tenderness. No guarding, no rebound EXTREMITIES: no pitting edema, weakness bilateral hands NEUROLOGICAL: Cranial nerves grossly intact. PSYCH: Normal mood, normal affect. SKIN: Warm, Dry, normal turgor, no rashes or lesions noted Course - Re-evaluation Re-evalutation: 12/13/16 14:40 Dr. Reid regarding patient diabetes atrial fib with RVR. He advised iv insulin bolus, driip. Consult with Dr. Faria. He agrees with iv insulin, cardizem drip at 5mg/hr. 12/13/16 14:45 pt updated on admission, dr faria in the ed with patient. patient instructed on admission, plan of care - Vital Signs Vital signs: Temp Pulse Resp BP Pulse Ox 98.3 F 113 H 32 H 141/90 H 98 12/13/16 12:54 12/13/16 17:18 12/13/16 16:00 12/13/16 17:30 12/13/16 16:00 - Laboratory Result Diagrams: 12/13/16 13:25 12/13/16 16:22 Laboratory results interpreted by me: 12/13/16 12/13/16 13:25 13:47 Sodium 130.9 L Chloride 95 L Glucose 665 H* Alkaline Phosphatase 141 H Total Protein 6.2 L Albumin 3.0 L Urine Protein 100 H Urine Glucose (UA) >=500 H Urine Blood SMALL H - Diagnostic Test Radiology reviewed: Image reviewed, Reports reviewed - EKG Interpretation by Me Rhythm: A.Fib When compared to previous EKG there are: No significant change - Consults dr faria Reason for consultation: 12/13/16 14:45 weakness, afib, rvr, uncontrolled diabetes, Consulted provider: will come to ER Discharge - Discharge Clinical Impression: Weakness, Atrial fibrillation with RVR Uncontrolled diabetes mellitus Qualifiers: Diabetes mellitus type: type 2 Diabetes mellitus complication status: with hyperglycemia Admitting Provider: Jordi faria Unit Admitted: [facility]
[2016-12-13 14:22] LABS: CREATINE KINASE MB 3.6 ng/mL (<4.55); TROPONIN I 0.033 ng/mL
[2016-12-13] MEDS ORDERED: NORMAL SALINE 1000 ML 1,000 ML IV ONE (14:23)
[2016-12-13] MEDS ORDERED: INSULIN REG, HUMAN 100 UNIT/ML 3 ML VIAL (PYX) IV ONE ×2 (14:30→14:32)
[2016-12-13] MEDS: DILTIAZEM HCL/D5W 125 ML IV PRN (15:02)
[2016-12-13] MEDS ORDERED: DEXTROSE 40% GEL 15 GM TUBE PO PRN ×2 (15:36)
[2016-12-13] MEDS ORDERED: DEXTROSE 50%-WATER 25 GM/50 ML DISP.SYRIN IV PRN ×2 (15:36)
[2016-12-13] MEDS ORDERED: GLUCAGON,HUMAN RECOMB 1 MG INJ IM PRN (15:36)
[2016-12-13] MEDS ORDERED: NORMAL SALINE 100 ML with INSULIN REGULAR, HUMAN 100 UNIT IV PRN ×2 (15:41)
[2016-12-13] MEDS ORDERED: NORMAL SALINE 1000 ML 1,000 ML IV PRN (15:41)
[2016-12-13] MEDS ORDERED: DILTIAZEM HCL/D5W 125 ML IV PRN (15:43)
[2016-12-13] MEDS ORDERED: ONDANSETRON HCL INJ/PF 4 MG/2 ML SDV IV PRN (15:44)
[2016-12-13] MEDS ORDERED: ACETAMINOPHEN 325 MG TABLET PO PRN (15:44)
[2016-12-13] MEDS ORDERED: HYDRALAZINE HCL INJ/PF 20 MG/1 ML SDV IV PRN (15:57)
--- NOTE | 2016-12-13 16:05 | PDOC H&P ---
History of Present Illness Admission Date/PCP: 12/13/16 15:07 STACEY DILLARDC Patient complains of: Weakness History of Present Illness: DANNI CROUCH is a 61 year old male with past medical history of atrial fibrillation, diabetes, hypertension, peripheral neuropathy, CVA presents to the emergency department after not taking any of his medications for 1 year with generalized weakness. Patient states that he was on 30 medications and that they were making him feel very fatigued, causing swelling, and causing irritable bowel syndrome so he stopped all his medications and these issues resolved. Medications reconciled below are not accurate as patient has not been taking any medication for 1 year. Past Medical History Cardiac Medical History: Reports: Atrial Fibrillation, Coronary Artery Disease, Myocardial Infarction - "Massive" heart attack in 2010 had balloon angioplasty, no stents., Hyperlipidema, Hypertension Neurological Medical History: Reports: Ischemic CVA, Other - peripheral neuropathy Endocrine Medical History: Reports: Diabetes Mellitus Type 2 Musculoskeltal Medical History: Reports: Gout Psychiatric Medical History: Denies: Depression Past Surgical History Past Surgical History: Reports: Cardiac Catheterization - With balloon angioplasty., Vascular Surgery - Renal artery stent placement, Other - Watchman' s device placed at [place] last year Social History Information Source: Patient Lives with: Family Smoking Status: Current Every Day Smoker Frequency of Alcohol Use: None Hx Recreational Drug Use: No Drugs: None Hx Prescription Drug Abuse: No - Advance Directive Resuscitation Status: Full Code Family History Family History: Other - Rheumatic heart disease-father Parental Family History Reviewed: Yes Children Family History Reviewed: Yes Sibling(s) Family History Reviewed.: Yes Medication/Allergy Home Medications: Aspirin [Aspirin 81 mg Chewable Tablet] 81 mg PO DAILY 12/13/16 Clonidine HCl [Catapres 0.3 mg Tablet] 0.3 mg PO Q12 12/13/16 Diltiazem HCl [Diltiazem ER] 360 mg PO DAILY 12/13/16 Metformin HCl [Glucophage] 1,000 mg PO Q12 12/13/16 Allergies/Adverse Reactions: No Known Allergies Allergy (Verified 12/13/16 13:04) Review of Systems Constitutional: PRESENT: fatigue, weakness. ABSENT: chills, fever(s), headache( s), weight gain, weight loss Eyes: ABSENT: visual disturbances Ears: ABSENT: hearing changes Cardiovascular: ABSENT: chest pain, dyspnea on exertion, edema, orthropnea, palpitations Respiratory: ABSENT: cough, hemoptysis Gastrointestinal: ABSENT: abdominal pain, constipation, diarrhea, hematemesis, hematochezia, nausea, vomiting Genitourinary: ABSENT: dysuria, hematuria Musculoskeletal: ABSENT: joint swelling Integumentary: ABSENT: rash, wounds Neurological: PRESENT: focal weakness. ABSENT: abnormal gait, abnormal speech, confusion, dizziness, syncope Psychiatric: ABSENT: anxiety, depression, homidical ideation, suicidal ideation Endocrine: ABSENT: cold intolerance, heat intolerance, polydipsia, polyuria Hematologic/Lymphatic: ABSENT: easy bleeding, easy bruising Physical Exam Vital Signs: Temp Pulse Resp BP Pulse Ox 98.3 F 82 16 148/100 H 96 12/13/16 12:51 12/13/16 12:51 12/13/16 12:51 12/13/16 12:51 12/13/16 12:51 PHYSICAL EXAM: GENERAL: Appears well, no acute distress HEENT: Normocephalic, no scleral icterus, conjunctiva clear, EOEM intact, PERRLA , moist mucous membranes NECK: trachea midline, no thyromegally RESPIRATORY: Clear to auscultation, no wheezes/rhonchi CARDIAC: Irregular/tachycardic ABDOMEN: Soft, no distension, no tenderness, no guarding, normal bowel sounds, negative Jean-Baptiste sign RECTAL: deferred : deferred EXTREMITIES: No edema, cyanosis, clubbing MUSCULOSKELETAL: No joint swelling or deformity VASCULAR: normal peripheral pulses NEUROLOGIC: Alert, oriented to person/place/time, normal speech, cranial nerves grossly intact, contractures in both upper hands SKIN: No rash, no wounds, no worrisome skin lesions PSYCHIATRIC: Normal mood, normal affect Results Laboratory Results: Labs- All tests 24 hr 12/13/16 12/13/16 12/13/16 13:25 13:25 13:25 WBC 6.4 RBC 5.03 Hgb 15.1 Hct 45.3 MCV 90 MCH 30.1 MCHC 33.4 RDW 14.0 Plt Count 236 Seg Neutrophils % 57.8 Lymphocytes % 29.8 Monocytes % 8.6 Eosinophils % 2.9 Basophils % 0.9 Absolute Neutrophils 3.7 Absolute Lymphocytes 1.9 Absolute Monocytes 0.5 Absolute Eosinophils 0.2 Absolute Basophils 0.1 Sodium 130.9 L Potassium 4.2 Chloride 95 L Carbon Dioxide 26 Anion Gap 10 BUN 18 Creatinine 0.75 Est GFR ( Amer) > 60 Est GFR (Non-Af Amer) > 60 Glucose 665 H* Calcium 9.1 Total Bilirubin 0.5 Direct Bilirubin 0.3 Indirect Bilirubin Not Reportable Neonat Total Bilirubin Not Reportable AST 21 ALT 31 Alkaline Phosphatase 141 H Creatine Kinase 144 CK-MB (CK-2) 3.60 Troponin I 0.033 Total Protein 6.2 L Albumin 3.0 L Urine Color Urine Appearance Urine pH Ur Specific Cromwell Urine Protein Urine Glucose (UA) Urine Ketones Urine Blood Urine Nitrite Urine Bilirubin Urine Urobilinogen Ur Leukocyte Esterase Urine WBC (Auto) Urine RBC (Auto) Squamous Epi Cells Auto Urine Ascorbic Acid 12/13/16 13:47 WBC RBC Hgb Hct MCV MCH MCHC RDW Plt Count Seg Neutrophils % Lymphocytes % Monocytes % Eosinophils % Basophils % Absolute Neutrophils Absolute Lymphocytes Absolute Monocytes Absolute Eosinophils Absolute Basophils Sodium Potassium Chloride Carbon Dioxide Anion Gap BUN Creatinine Est GFR ( Amer) Est GFR (Non-Af Amer) Glucose Calcium Total Bilirubin Direct Bilirubin Indirect Bilirubin Neonat Total Bilirubin AST ALT Alkaline Phosphatase Creatine Kinase CK-MB (CK-2) Troponin I Total Protein Albumin Urine Color STRAW Urine Appearance CLEAR Urine pH 6.0 Ur Specific [place] 1.031 Urine Protein 100 H Urine Glucose (UA) >=500 H Urine Ketones NEGATIVE Urine Blood SMALL H Urine Nitrite NEGATIVE Urine Bilirubin NEGATIVE Urine Urobilinogen NEGATIVE Ur Leukocyte Esterase NEGATIVE Urine WBC (Auto) 1 Urine RBC (Auto) 3 Squamous Epi Cells Auto <1 Urine Ascorbic Acid NEGATIVE Impressions: Chest X-Ray 12/13/16 13:01 IMPRESSION: No significant interval change. No acute findings. Other findings as noted above Assessment & Plan - Diagnosis (1) Atrial fibrillation with RVR Is this a current diagnosis for this admission?: YesPlan: Continue Cardizem drip initiated in the emergency department. Start metoprolol 50 mg twice daily. Patient will need to be on anticoagulation eventually. I will discussed the risk and benefits of long-term anticoagulation with him first. For now continue aspirin and prophylactic Lovenox. (2) Uncontrolled diabetes mellitus Qualifiers: Diabetes mellitus type: type 2 Diabetes mellitus complication status: with hyperglycemia Is this a current diagnosis for this admission?: YesPlan: Continue insulin drip initiated in the emergency department. Continue IV fluids. Once patient is under better control I will transition him to oral glipizide. I will avoid metformin as this caused patient irritable bowel syndrome before. (3) Hypertension Is this a current diagnosis for this admission?: YesPlan: Cardizem drip for now. As needed IV hydralazine. Start metoprolol 50 mg twice daily. (4) Neuropathy Is this a current diagnosis for this admission?: YesPlan: Likely secondary to long-standing diabetes. I will check B12 level as well. Physical therapy to evaluate. (5) CVA (cerebral vascular accident) Is this a current diagnosis for this admission?: YesPlan: Resume aspirin therapy for now. I will need to discuss risk and benefits of anticoagulation with patient for atrial fibrillation. Physical therapy to evaluate. (6) Coronary artery disease Is this a current diagnosis for this admission?: YesPlan: Start patient back on aspirin regimen. Check lipid panel in the morning and initiate statin if indicated. Start patient on metoprolol 50 mg twice daily. (7) Noncompliance Is this a current diagnosis for this admission?: Yes - Time Time Spent: Greater than 70 Minutes
--- NOTE | 2016-12-13 16:32 | EKG REPORT ---
SEVERITY:- ABNORMAL ECG - ATRIAL FIBRILLATION, V-RATE 78-160 NONSPECIFIC T ABNORMALITIES, ANT-LAT LEADS : Confirmed by: Moe Devi 13-Dec-2016 16:32:33
[2016-12-13 16:54] LABS: ANION GAP 9 (5-19); BLOOD UREA NITROGEN 17 mg/dL (7-20); CALCIUM 9.4 mg/dL (8.4-10.2); CARBON DIOXIDE 26 mmol/L (22-30); CHLORIDE 100 mmol/L (98-107); POTASSIUM 3.9 mmol/L (3.6-5.0)
[2016-12-13] MEDS ORDERED: ASPIRIN 81 MG TABLET, ENT COATED PO ONE (17:00)
[2016-12-13 17:08] LABS: GLUCOSE 479 mg/dL (75-110)
[2016-12-13] MEDS: METOPROLOL TARTRATE 50 MG TABLET PO SCH (18:22)
[2016-12-13 20:09] LABS: ANION GAP 7 (5-19); BLOOD UREA NITROGEN 14 mg/dL (7-20); CARBON DIOXIDE 26 mmol/L (22-30); CHLORIDE 101 mmol/L (98-107); CREATININE RESULT 0.66 mg/dL (0.52-1.25); POTASSIUM 3.4 mmol/L (3.6-5.0); SODIUM 134.4 mmol/L (137-145)
[2016-12-13 20:19] LABS: GLUCOSE 411 mg/dL (75-110)
[2016-12-13] MEDS ORDERED: DEXTROSE 5%-NORMAL SALINE 1,000 ML IV PRN (21:11)
[2016-12-13 21:28] LABS: ADD ON TESTING BLD IN LAB ACKNOWLEDGE
[2016-12-13] MEDS: POTASSIUM CHLORIDE 20 MEQ/15 ML UDCUP PO SCH ×2 (21:53→23:58)
[2016-12-13 22:09] LABS: MAGNESIUM 1.9 mg/dL (1.6-2.3)
[2016-12-14 00:16] LABS: ANION GAP 8 (5-19); BLOOD UREA NITROGEN 14 mg/dL (7-20); CALCIUM 9.2 mg/dL (8.4-10.2); CARBON DIOXIDE 26 mmol/L (22-30); CHLORIDE 107 mmol/L (98-107); CREATININE RESULT 0.67 mg/dL (0.52-1.25); GLUCOSE 128 mg/dL (75-110); POTASSIUM 3.5 mmol/L (3.6-5.0); SODIUM 141.3 mmol/L (137-145)
[2016-12-14] MEDS: POTASSIUM CHLORIDE 20 MEQ/15 ML UDCUP PO SCH ×2 (01:53→04:31)
[2016-12-14 04:09] LABS: ABSOLUTE EOSINOPHILS # (AUTO) 0.2 10^3/uL (0.0-0.6); ABSOLUTE LYMPHOCYTES (AUTO) 1.8 10^3/uL (0.5-4.7); ABSOLUTE MONOCYTES (AUTO) 0.7 10^3/uL (0.1-1.4); ABSOLUTE NEUT (AUTO) 5.1 10^3/uL (1.7-8.2); BASOPHILS % (AUTO) 0.6 % (0-2); EOSINOPHILS % (AUTO) 2.4 % (0-6); HEMATOCRIT 41.3 % (37.9-51.0); HEMOGLOBIN 13.9 g/dL (13.5-17.0); HGB HCT DIFFERENCE 0.4; LYMPHOCYTES % (AUTO) 23.6 % (13-45); MEAN CORPUSCULAR HEMOGLOBIN 30.2 pg (27.0-33.4); MEAN CORPUSCULAR HGB CONC 33.7 g/dL (32.0-36.0); MEAN CORPUSCULAR VOLUME 90 fl (80-97); MONOCYTES % (AUTO) 8.7 % (3-13); RED CELL DISTRIBUTION WIDTH 13.9 % (11.5-14.0); SEGMENTED NEUTROPHILS % (AUTO) 64.7 % (42-78); WHITE BLOOD COUNT 7.9 10^3/uL (4.0-10.5)
[2016-12-14 04:24] LABS: ANION GAP 6 (5-19); BLOOD UREA NITROGEN 14 mg/dL (7-20); CALCIUM 8.9 mg/dL (8.4-10.2); CARBON DIOXIDE 25 mmol/L (22-30); CHLORIDE 107 mmol/L (98-107); CHOLESTEROL 267.31 mg/dL (0-200); CREATININE RESULT 0.67 mg/dL (0.52-1.25); Direct HDL 47 mg/dL (>40); GLUCOSE 235 mg/dL (75-110); MAGNESIUM 1.9 mg/dL (1.6-2.3); POTASSIUM 4.1 mmol/L (3.6-5.0); SODIUM 137.6 mmol/L (137-145); TRIGLYCERIDES 92 mg/dL (<150)
[2016-12-14 04:34] LABS: DIRECT LDL 222 mg/dL (<100)
[2016-12-14] MEDS ORDERED: INSULIN LISPRO 100 UNIT/ML 3 ML VIAL SUBCUT PRN ×3 (05:35→11:23)
[2016-12-14] MEDS: METOPROLOL TARTRATE 50 MG TABLET PO SCH (06:35)
[2016-12-14] MEDS ORDERED: NORMAL SALINE 1000 ML 1,000 ML IV PRN ×2 (07:48→11:23)
[2016-12-14] MEDS ORDERED: GLYBURIDE 5 MG TABLET PO SCH (08:00)
--- NOTE | 2016-12-14 08:12 | RADIOLOGY REPORT (SQ) ---
EXAM DESCRIPTION: CT HEAD WITHOUT COMPLETED DATE/TIME: 12/14/2016 7:56 am REASON FOR STUDY: encephalopathy COMPARISON: None. TECHNIQUE: Axial images acquired through the brain without intravenous contrast. Images reviewed wi th bone, brain and subdural windows. Images stored on PACS. All CT scanners at this facility use dose modulation, iterative reconstruction, and/or weight based d osing when appropriate to reduce radiation dose to as low as reasonably achievable (ALARA). [facility]: Dose Right [facility]: CareDose [facility]: Dose Right [facility]: Teradose 4D [facility]: Smart LOAG RADIATION DOSE: Up-to-date CT equipment and radiation dose reduction techniques were employed. CTDIv ol: 64.6 mGy. DLP: 1163 mGy-cm. mGy. LIMITATIONS: None. FINDINGS: VENTRICLES: Normal size and contour. CEREBRUM: No masses. No hemorrhage. No midline shift. Normal pichardo/white matter differentiation. N o evidence for acute infarction. CEREBELLUM: No masses. No hemorrhage. No alteration of density. No evidence for acute infarction. EXTRAAXIAL SPACES: No fluid collections. No masses. ORBITS AND GLOBE: No intra- or extraconal masses. Normal contour of globe without masses. CALVARIUM: No fracture. PARANASAL SINUSES: No fluid or mucosal thickening. SOFT TISSUES: No mass or hematoma. OTHER: No other significant finding. IMPRESSION: NORMAL BRAIN CT WITHOUT CONTRAST. TECHNICAL DOCUMENTATION: JOB ID: [id number] Quality ID # [id number]: Final reports with documentation of one or more dose reduction techniques (e.g., Au tomated exposure control, adjustment of the mA and/or kV according to patient size, use of iterative reconstruction technique) 2010 [employer]- All Rights Reserved
[2016-12-14 08:36] LABS: ANION GAP 9 (5-19); BLOOD UREA NITROGEN 15 mg/dL (7-20); CARBON DIOXIDE 22 mmol/L (22-30); CHLORIDE 105 mmol/L (98-107); CREATININE RESULT 0.73 mg/dL (0.52-1.25); GLUCOSE 348 mg/dL (75-110); POTASSIUM 4.5 mmol/L (3.6-5.0); SODIUM 136.3 mmol/L (137-145)
[2016-12-14] MEDS ORDERED: DILTIAZEM HCL/D5W 125 ML IV PRN (08:52)
[2016-12-14] MEDS: DILTIAZEM HCL/D5W 125 ML IV PRN (08:55)
--- NOTE | 2016-12-14 09:14 | PDOC PROGRESS REPORT ---
Subjective Progress Note for:: 12/14/16 Subjective:: Patient is having a significant expressive aphasia this morning. He seems somewhat confused as well. Nursing reports that he was able to get himself out of bed quickly and attempt to ambulate but they were able to stop him and get him back to bed. The nurse states that he did not seem to have any weakness in either leg while he was doing this. Physical Exam Vital Signs: Temp Pulse Resp BP Pulse Ox 97.8 F 77 16 136/98 H 98 12/14/16 04:00 12/14/16 02:00 12/14/16 04:00 12/14/16 06:01 12/14/16 04:00 Intake & Output 12/13/16 12/14/16 12/15/16 06:59 06:59 06:59 Intake Total 2295 Output Total 1125 Balance 1170 Weight 76.2 kg GENERAL: No acute distress HEENT: Conjunctiva clear, nonicteric, moist mucous membranes, no JVD, midline trachea RESPIRATORY: Clear to auscultation bilaterally, no wheezes, no rhonchi CARDIAC: Irregular rhythm, normal rate, no murmur ABDOMEN: Soft, nondistended, nontender, positive bowel sounds, no rebound, no guarding EXTREMETIES: No edema, cyanosis, clubbing NEUROLOGIC: Alert, expressive aphasia, contractures and weakness in all 4 extremities as noted on admission, however his right upper extremity seems more weak to me than it did on admission yesterday SKIN: No rash, wounds PSYCH: Unusual affect Results Laboratory Results: 12/14/16 04:00 12/14/16 08:13 12/13/16 12/13/16 12/13/16 16:22 16:22 19:45 WBC RBC Hgb Hct MCV MCH MCHC RDW Plt Count Seg Neutrophils % Lymphocytes % Monocytes % Eosinophils % Basophils % Absolute Neutrophils Absolute Lymphocytes Absolute Monocytes Absolute Eosinophils Absolute Basophils Sodium 135.0 L 134.4 L Potassium 3.9 3.4 L Chloride 100 101 Carbon Dioxide 26 26 Anion Gap 9 7 BUN 17 14 Creatinine 0.70 0.66 Est GFR ( Amer) > 60 > 60 Est GFR (Non-Af Amer) > 60 > 60 Glucose 479 H* 411 H* Calcium 9.4 9.0 Magnesium Triglycerides Cholesterol LDL Cholesterol Direct VLDL Cholesterol HDL Cholesterol Vitamin B12 768.0 TSH 12/13/16 12/13/16 12/13/16 19:45 19:45 23:49 WBC RBC Hgb Hct MCV MCH MCHC RDW Plt Count Seg Neutrophils % Lymphocytes % Monocytes % Eosinophils % Basophils % Absolute Neutrophils Absolute Lymphocytes Absolute Monocytes Absolute Eosinophils Absolute Basophils Sodium 141.3 Potassium 3.5 L Chloride 107 Carbon Dioxide 26 Anion Gap 8 BUN 14 Creatinine 0.67 Est GFR ( Amer) > 60 Est GFR (Non-Af Amer) > 60 Glucose 128 H Calcium 9.2 Magnesium 1.9 Triglycerides Cholesterol LDL Cholesterol Direct VLDL Cholesterol HDL Cholesterol Vitamin B12 TSH 1.28 12/14/16 12/14/16 12/14/16 04:00 04:00 08:13 WBC 7.9 RBC 4.60 Hgb 13.9 Hct 41.3 MCV 90 MCH 30.2 MCHC 33.7 RDW 13.9 Plt Count 214 Seg Neutrophils % 64.7 Lymphocytes % 23.6 Monocytes % 8.7 Eosinophils % 2.4 Basophils % 0.6 Absolute Neutrophils 5.1 Absolute Lymphocytes 1.8 Absolute Monocytes 0.7 Absolute Eosinophils 0.2 Absolute Basophils 0.0 Sodium 137.6 136.3 L Potassium 4.1 4.5 Chloride 107 105 Carbon Dioxide 25 22 Anion Gap 6 9 BUN 14 15 Creatinine 0.67 0.73 Est GFR ( Amer) > 60 > 60 Est GFR (Non-Af Amer) > 60 > 60 Glucose 235 H 348 H Calcium 8.9 9.0 Magnesium 1.9 Triglycerides 92 Cholesterol 267.31 H LDL Cholesterol Direct 222 H VLDL Cholesterol 18.0 HDL Cholesterol 47 Vitamin B12 TSH Impressions: Chest X-Ray 12/13/16 13:01 IMPRESSION: No significant interval change. No acute findings. Other findings as noted above Head CT 12/14/16 00:00 IMPRESSION: NORMAL BRAIN CT WITHOUT CONTRAST. Assessment & Plan - Diagnosis (1) Acute CVA (cerebrovascular accident) Is this a current diagnosis for this admission?: YesPlan: Patient has history of hemorrhagic stroke in 2016. Head CT at this time shows no evidence of bleed or stroke. I will check MRI of the brain, carotid Dopplers. I would also like to check echocardiogram to rule out thrombus given the fact that patient has atrial fibrillation and has not been taking any of his medications for the past year. Continue aspirin, statin. Continue Lovenox for DVT prophylaxis. PT/OT/ST evaluation. Serial neurologic examinations. In general we need to maintain better blood pressure control, however we do want to allow for some permissive hypertension in the setting of acute CVA. Patient apparently had a Watchman device implanted last year after his hemorrhagic stroke. I am trying to find out if this device is MRI compatible at this time. Also of note patient has had bilateral renal artery stents placed. (2) Atrial fibrillation with RVR Is this a current diagnosis for this admission?: YesPlan: Heart rate is now stable on Cardizem drip. I would like to continue Cardizem drip for this as well as blood pressure for now until patient can safely take oral intake. Patient apparently had a Watchman device implanted last year after his hemorrhagic stroke. Consult Dr. Baker of cardiology. Patient is normally followed by Dr. Jaimes of cardiology in [facility] [place]. I believe his Watchman device was placed at [facility]. (3) Uncontrolled diabetes mellitus Qualifiers: Diabetes mellitus type: type 2 Diabetes mellitus complication status: with hyperglycemia Is this a current diagnosis for this admission?: YesPlan: Blood glucose now stable. Insulin drip discontinued. Sliding scale insulin for now while n.p.o. Continue IV fluids. (4) Hypertension Is this a current diagnosis for this admission?: YesPlan: Cardizem drip for now. As needed IV hydralazine. Started metoprolol 50 mg twice daily. Patient has bilateral renal artery stents. (5) Neuropathy Is this a current diagnosis for this admission?: YesPlan: Likely secondary to long-standing diabetes. Vitamin B12 level normall. Physical therapy to evaluate. (6) Coronary artery disease Is this a current diagnosis for this admission?: YesPlan: Aspirin, Lipitor, metoprolol. In general patient needs to comply with medical management of diabetes, hypertension, hypercholesterolemia. (7) Noncompliance Is this a current diagnosis for this admission?: Yes - Time Time Spent with patient: 35 or more minutes
[2016-12-14] MEDS ORDERED: ASPIRIN 81 MG TABLET, ENT COATED PO SCH (10:00)
[2016-12-14] MEDS ORDERED: ENOXAPARIN SODIUM INJ 40 MG/0.4 ML DISP.SYRIN SUBCUT SCH (10:00)
[2016-12-14] MEDS ORDERED: FUROSEMIDE INJ/PF 20 MG/2 ML SDV ONE (10:51)
[2016-12-14] MEDS ORDERED: DEXTROSE 40% GEL 15 GM TUBE PO PRN ×2 (11:20)
[2016-12-14] MEDS ORDERED: GLUCAGON,HUMAN RECOMB 1 MG INJ IM PRN (11:21)
[2016-12-14] MEDS ORDERED: ACETAMINOPHEN 325 MG TABLET PO PRN (11:21)
[2016-12-14] MEDS ORDERED: DEXTROSE 50%-WATER 25 GM/50 ML DISP.SYRIN IV PRN ×2 (11:21)
[2016-12-14] MEDS ORDERED: HYDRALAZINE HCL INJ/PF 20 MG/1 ML SDV IV PRN (11:22)
[2016-12-14] MEDS ORDERED: ONDANSETRON HCL INJ/PF 4 MG/2 ML SDV IV PRN (11:22)
[2016-12-14] MEDS ORDERED: DILTIAZEM HCL/D5W 125 MG/125 ML RTUINJ IV PRN (12:43)
[2016-12-14] MEDS ORDERED: DILTIAZEM HCL/D5W 125 MG/125 ML RTUINJ IV ONE (12:46)
[2016-12-14] MEDS ORDERED: LORAZEPAM INJ 2 MG/1 ML VIAL ONE (13:19)
[2016-12-14] MEDS ORDERED: LORAZEPAM INJ 2 MG/1 ML VIAL IV PRN (13:21)
[2016-12-14] MEDS ORDERED: ASPIRIN 300 MG SUPP, RECTAL PR SCH (14:00)
[2016-12-14] MEDS ORDERED: LEVETIRACETAM 1000 MG/NACL-ISO 1,000 MG/100 ML RTUPB IV ONE (14:00)
--- NOTE | 2016-12-14 16:14 | PDOC TRANSFER SUMMARY ---
General Admission Date/PCP: 12/13/16 15:44 JOSEFINA DILLARD Admission Date: 12/13/16 Transfer Date: 12/14/16 Accepting Facility: [facility] Accepting Physician: Dr. Cueva Resuscitation Status: Full Code - Transfer Diagnosis (1) Acute CVA (cerebrovascular accident) Is this a current diagnosis for this admission?: Yes (2) Seizure disorder Is this a current diagnosis for this admission?: Yes (3) Atrial fibrillation with RVR Is this a current diagnosis for this admission?: Yes (4) Uncontrolled diabetes mellitus Is this a current diagnosis for this admission?: Yes (5) Hypertension Is this a current diagnosis for this admission?: Yes (6) Neuropathy Is this a current diagnosis for this admission?: Yes (7) Coronary artery disease Is this a current diagnosis for this admission?: Yes (8) Noncompliance Is this a current diagnosis for this admission?: Yes - Transfer Medications Home Medications: Aspirin [Aspirin 81 mg Chewable Tablet] 81 mg PO DAILY 12/13/16 Clonidine HCl [Catapres 0.3 mg Tablet] 0.3 mg PO Q12 12/13/16 Diltiazem HCl [Diltiazem ER] 360 mg PO DAILY 12/13/16 Metformin HCl [Glucophage] 1,000 mg PO Q12 12/13/16 Transfer Medications: Current Medications Acetaminophen (Tylenol 325 Mg Tablet) 650 mg PO Q4HP PRN PRN Reason: FOR PAIN OR TEMP Stop: 01/13/17 11:20 Aspirin 81mg po daily DAILY@1000 JENNIFER Stop: 01/13/17 13:59 Atorvastatin Calcium (Lipitor 40 Mg Tablet) 40 mg PO QHS JENNIFER Stop: 01/13/17 21:59 Dextrose (Dextrose Inj 50% Syringe (25 Gm/50 Ml)) 12.5 gm IV PRN PRN; Protocol PRN Reason: FOR BG 50-69 IN ALERT PATIENT Stop: 01/13/17 11:20 Dextrose (Dextrose Inj 50% Syringe (25 Gm/50 Ml)) 25 gm IV PRN PRN PRN Reason: Protocol Stop: 01/13/17 11:20 Enoxaparin Sodium (Lovenox Inj 40 Mg/0.4 Ml Disp.Syrin) 40 mg SUBCUT DAILY JENNIFER Stop: 01/14/17 09:59 Last Admin: 12/14/16 08:55 Dose: Not Given Glucagon (Glucagen Inj 1 Mg Vial) 1 mg IM PRN PRN; Protocol PRN Reason: Evaluate for BG < 70 Stop: 01/13/17 11:20 Glucose (Glutose 40% Gel 15 Gm Tube) 15 gm PO PRN PRN; Protocol PRN Reason: FOR BG 50-69 IN ALERT PATIENT Stop: 01/12/17 15:35 Glucose (Glutose 40% Gel 15 Gm Tube) 15 gm PO PRN PRN; Protocol PRN Reason: FOR BG 50-69 IN ALERT PATIENT Stop: 01/13/17 11:19 Glucose (Glutose 40% Gel 15 Gm Tube) 30 gm PO PRN PRN; Protocol PRN Reason: FOR BG < 50 IN ALERT PATIENT Stop: 01/13/17 11:19 Hydralazine HCl (Apresoline Inj/Pf 20 Mg/1 Ml Sdv) 10 mg IV Q6HP PRN Stop: 01/13/17 11:21 Last Admin: 12/14/16 08:55 Dose: 10 mg Sodium Chloride (Nacl 0.9% 1000 Ml Iv Soln) 1,000 mls @ 100 mls/hr IV CONTINUOUS PRN PRN Reason: THIS MED IS NOT "PRN" Stop: 01/13/17 11:22 Last Admin: 12/14/16 08:55 Dose: 1,000 ml Diltiazem HCl (Cardizem Rtu Inj 125 Mg-D5w 125 Ml Premix) 125 mg in 125 mls @ 0 mls/hr IV CONTINUOUS PRN; Protocol; Titrate PRN Reason: THIS MED IS NOT "PRN" Stop: 01/13/17 12:42 Levetiracetam (Keppra Rtu 1000 Mg/Nacl-Iso 100 Ml Premix) 1,000 mg in 100 mls @ 400 mls/hr IV Q12 JENNIFER Stop: 01/13/17 21:59 Insulin Human Lispro (Humalog Insulin 100 Unit/1 Ml 3 Ml Vial) 0 - 12 unit SUBCUT Q6HP PRN PRN Reason: Protocol Stop: 01/13/17 11:22 Lorazepam (Ativan Inj 2 Mg/1 Ml Vial) 1 mg IV Q8HP PRN PRN Reason: ANXIETY Stop: 12/21/16 13:20 Metoprolol Tartrate (Lopressor 50 Mg Tablet) 50 mg PO Q12A JENNIFER Stop: 01/13/17 17:59 Ondansetron HCl (Zofran Inj/Pf 4 Mg/2 Ml Sdv) 4 mg IV Q6HP PRN PRN Reason: FOR NAUSEA/VOMITING Stop: 01/13/17 11:21 Sodium Chloride (Saline Flush 2.5 Ml Monoject Prefil Syrin) 2.5 ml IV Q8 [facility] Stop: 01/13/17 13:59 Lantus 15units subQ DAILY - Allergies Allergies/Adverse Reactions: No Known Allergies Allergy (Verified 12/13/16 13:04) - Diet/Activity Discharge Diet: Cardiac, Diabetic Discharge Activity: Activity As Tolerated Hospital Course Hospital Course: Patient initially was admitted for atrial fibrillation with rapid ventricular response, uncontrolled hypertension, and hyperglycemia. Patient apparently had not been taking any of his home medication for approximately 1 year and she states these medications made him feel too tired and have other side effects as well. With regard to atrial fibrillation patient has had chronic atrial fibrillation. He has left atrial appendage and has had a Watchman device implanted at [facility] in 2016. He was started on Cardizem drip for heart rate control and heart rate is currently controlled on 10 mg/h. With regard to hyperglycemia patient was started initially on insulin drip and IV fluids. Initial blood glucose was 665. Blood glucose at the time of this dictation is 348. Patient is being started on Lantus 15 units subcu daily. He is on sliding scale insulin as well. His hemoglobin A1c is greater than 14. Patient has had uncontrolled hypertension secondary to medication noncompliance as an outpatient. Blood pressure is improved on Cardizem drip. He is also receiving as needed IV hydralazine. On second day of admission patient was noted to have expressive aphasia. He had a stat head CT that showed no evidence of bleed or stroke. We have been attempting to have MRI done but this is not able to be done at this time secondary to history of Watchman device. Patient's has brought the card for this device which shows that his MR conditional. I think it would be easier to have radiology do this at tertiary care facility. For now patient is on aspirin and statin. He has past a bedside swallowing evaluation. PT/ST/OT evaluations are still pending. Shortly after having his head CT performed patient patient started to have seizure. He has no prior history of seizure. Seizure did not terminate spontaneously so patient was administered Ativan 2 mg 1 dose IV. Procedure then terminated. Patient was started on Keppra 1000 mg IV every 12 hours. EEG has been ordered but is pending at this time. Case was discussed with Dr. Rico of neurology at [facility] and he agrees that patient would benefit from transfer to tertiary care center for MRI of the brain and neurology evaluation. I have subsequently discussed the case with Dr. Cueva with hospital medicine and she has agreed to accept patient in transfer once bed is available. Physical Exam Vital Signs: Temp Pulse Resp BP Pulse Ox 97.8 F 96 20 138/102 H 99 12/14/16 04:00 12/14/16 12:30 12/14/16 12:30 12/14/16 12:30 12/14/16 12:30 Intake & Output 12/13/16 12/14/16 12/15/16 06:59 06:59 06:59 Intake Total 2295 0 Output Total 1125 1200 Balance 1170 -1200 Weight 76.2 kg GENERAL: No acute distress HEENT: Conjunctiva clear, nonicteric, moist mucous membranes, no JVD, midline trachea RESPIRATORY: Clear to auscultation bilaterally, no wheezes, no rhonchi CARDIAC: Irregular rhythm, normal rate, no murmur ABDOMEN: Soft, nondistended, nontender, positive bowel sounds, no rebound, no guarding EXTREMETIES: No edema, cyanosis, clubbing NEUROLOGIC: Alert, expressive aphasia, contractures and weakness in all 4 extremities as noted on admission, however his right upper extremity seems more weak to me than it did on admission yesterday SKIN: No rash, wounds PSYCH: Unusual affect Results Laboratory Results: 12/14/16 04:00 12/14/16 08:13 12/13/16 12/13/16 12/13/16 16:22 16:22 19:45 WBC RBC Hgb Hct MCV MCH MCHC RDW Plt Count Seg Neutrophils % Lymphocytes % Monocytes % Eosinophils % Basophils % Absolute Neutrophils Absolute Lymphocytes Absolute Monocytes Absolute Eosinophils Absolute Basophils Sodium 135.0 L 134.4 L Potassium 3.9 3.4 L Chloride 100 101 Carbon Dioxide 26 26 Anion Gap 9 7 BUN 17 14 Creatinine 0.70 0.66 Est GFR ( Amer) > 60 > 60 Est GFR (Non-Af Amer) > 60 > 60 Glucose 479 H* 411 H* Calcium 9.4 9.0 Magnesium Triglycerides Cholesterol LDL Cholesterol Direct VLDL Cholesterol HDL Cholesterol Vitamin B12 768.0 TSH 12/13/16 12/13/16 12/13/16 19:45 19:45 23:49 WBC RBC Hgb Hct MCV MCH MCHC RDW Plt Count Seg Neutrophils % Lymphocytes % Monocytes % Eosinophils % Basophils % Absolute Neutrophils Absolute Lymphocytes Absolute Monocytes Absolute Eosinophils Absolute Basophils Sodium 141.3 Potassium 3.5 L Chloride 107 Carbon Dioxide 26 Anion Gap 8 BUN 14 Creatinine 0.67 Est GFR ( Amer) > 60 Est GFR (Non-Af Amer) > 60 Glucose 128 H Calcium 9.2 Magnesium 1.9 Triglycerides Cholesterol LDL Cholesterol Direct VLDL Cholesterol HDL Cholesterol Vitamin B12 TSH 1.28 12/14/16 12/14/16 12/14/16 04:00 04:00 08:13 WBC 7.9 RBC 4.60 Hgb 13.9 Hct 41.3 MCV 90 MCH 30.2 MCHC 33.7 RDW 13.9 Plt Count 214 Seg Neutrophils % 64.7 Lymphocytes % 23.6 Monocytes % 8.7 Eosinophils % 2.4 Basophils % 0.6 Absolute Neutrophils 5.1 Absolute Lymphocytes 1.8 Absolute Monocytes 0.7 Absolute Eosinophils 0.2 Absolute Basophils 0.0 Sodium 137.6 136.3 L Potassium 4.1 4.5 Chloride 107 105 Carbon Dioxide 25 22 Anion Gap 6 9 BUN 14 15 Creatinine 0.67 0.73 Est GFR ( Amer) > 60 > 60 Est GFR (Non-Af Amer) > 60 > 60 Glucose 235 H 348 H Calcium 8.9 9.0 Magnesium 1.9 Triglycerides 92 Cholesterol 267.31 H LDL Cholesterol Direct 222 H VLDL Cholesterol 18.0 HDL Cholesterol 47 Vitamin B12 TSH Labs- Entire Visit 12/13/16 12/13/16 12/13/16 13:25 13:25 13:25 WBC 6.4 RBC 5.03 Hgb 15.1 Hct 45.3 MCV 90 MCH 30.1 MCHC 33.4 RDW 14.0 Plt Count 236 Seg Neutrophils % 57.8 Lymphocytes % 29.8 Monocytes % 8.6 Eosinophils % 2.9 Basophils % 0.9 Absolute Neutrophils 3.7 Absolute Lymphocytes 1.9 Absolute Monocytes 0.5 Absolute Eosinophils 0.2 Absolute Basophils 0.1 Sodium 130.9 L Potassium 4.2 Chloride 95 L Carbon Dioxide 26 Anion Gap 10 BUN 18 Creatinine 0.75 Est GFR ( Amer) > 60 Est GFR (Non-Af Amer) > 60 Glucose 665 H* POC Glucose Hemoglobin A1c % Calcium 9.1 Magnesium Total Bilirubin 0.5 Direct Bilirubin 0.3 Indirect Bilirubin Not Reportable Neonat Total Bilirubin Not Reportable AST 21 ALT 31 Alkaline Phosphatase 141 H Creatine Kinase 144 CK-MB (CK-2) 3.60 Troponin I 0.033 Total Protein 6.2 L Albumin 3.0 L Triglycerides Cholesterol LDL Cholesterol Direct VLDL Cholesterol HDL Cholesterol Vitamin B12 TSH Urine Color Urine Appearance Urine pH Ur Specific [place] Urine Protein Urine Glucose (UA) Urine Ketones Urine Blood Urine Nitrite Urine Bilirubin Urine Urobilinogen Ur Leukocyte Esterase Urine WBC (Auto) Urine RBC (Auto) Squamous Epi Cells Auto Urine Ascorbic Acid 12/13/16 12/13/16 12/13/16 13:47 15:50 16:22 WBC RBC Hgb Hct MCV MCH MCHC RDW Plt Count Seg Neutrophils % Lymphocytes % Monocytes % Eosinophils % Basophils % Absolute Neutrophils Absolute Lymphocytes Absolute Monocytes Absolute Eosinophils Absolute Basophils Sodium 135.0 L Potassium 3.9 Chloride 100 Carbon Dioxide 26 Anion Gap 9 BUN 17 Creatinine 0.70 Est GFR ( Amer) > 60 Est GFR (Non-Af Amer) > 60 Glucose 479 H* POC Glucose 483 H* Hemoglobin A1c % Calcium 9.4 Magnesium Total Bilirubin Direct Bilirubin Indirect Bilirubin Neonat Total Bilirubin AST ALT Alkaline Phosphatase Creatine Kinase CK-MB (CK-2) Troponin I Total Protein Albumin Triglycerides Cholesterol LDL Cholesterol Direct VLDL Cholesterol HDL Cholesterol Vitamin B12 TSH Urine Color STRAW Urine Appearance CLEAR Urine pH 6.0 Ur Specific [place] 1.031 Urine Protein 100 H Urine Glucose (UA) >=500 H Urine Ketones NEGATIVE Urine Blood SMALL H Urine Nitrite NEGATIVE Urine Bilirubin NEGATIVE Urine Urobilinogen NEGATIVE Ur Leukocyte Esterase NEGATIVE Urine WBC (Auto) 1 Urine RBC (Auto) 3 Squamous Epi Cells Auto <1 Urine Ascorbic Acid NEGATIVE 12/13/16 12/13/16 12/13/16 16:22 17:15 18:21 WBC RBC Hgb Hct MCV MCH MCHC RDW Plt Count Seg Neutrophils % Lymphocytes % Monocytes % Eosinophils % Basophils % Absolute Neutrophils Absolute Lymphocytes Absolute Monocytes Absolute Eosinophils Absolute Basophils Sodium Potassium Chloride Carbon Dioxide Anion Gap BUN Creatinine Est GFR ( Amer) Est GFR (Non-Af Amer) Glucose POC Glucose 354 H 341 H Hemoglobin A1c % Calcium Magnesium Total Bilirubin Direct Bilirubin Indirect Bilirubin Neonat Total Bilirubin AST ALT Alkaline Phosphatase Creatine Kinase CK-MB (CK-2) Troponin I Total Protein Albumin Triglycerides Cholesterol LDL Cholesterol Direct VLDL Cholesterol HDL Cholesterol Vitamin B12 768.0 TSH Urine Color Urine Appearance Urine pH Ur Specific [place] Urine Protein Urine Glucose (UA) Urine Ketones Urine Blood Urine Nitrite Urine Bilirubin Urine Urobilinogen Ur Leukocyte Esterase Urine WBC (Auto) Urine RBC (Auto) Squamous Epi Cells Auto Urine Ascorbic Acid 12/13/16 12/13/16 12/13/16 19:41 19:45 19:45 WBC RBC Hgb Hct MCV MCH MCHC RDW Plt Count Seg Neutrophils % Lymphocytes % Monocytes % Eosinophils % Basophils % Absolute Neutrophils Absolute Lymphocytes Absolute Monocytes Absolute Eosinophils Absolute Basophils Sodium 134.4 L Potassium 3.4 L Chloride 101 Carbon Dioxide 26 Anion Gap 7 BUN 14 Creatinine 0.66 Est GFR ( Amer) > 60 Est GFR (Non-Af Amer) > 60 Glucose 411 H* POC Glucose 344 H Hemoglobin A1c % Calcium 9.0 Magnesium 1.9 Total Bilirubin Direct Bilirubin Indirect Bilirubin Neonat Total Bilirubin AST ALT Alkaline Phosphatase Creatine Kinase CK-MB (CK-2) Troponin I Total Protein Albumin Triglycerides Cholesterol LDL Cholesterol Direct VLDL Cholesterol HDL Cholesterol Vitamin B12 TSH Urine Color Urine Appearance Urine pH Ur Specific [place] Urine Protein Urine Glucose (UA) Urine Ketones Urine Blood Urine Nitrite Urine Bilirubin Urine Urobilinogen Ur Leukocyte Esterase Urine WBC (Auto) Urine RBC (Auto) Squamous Epi Cells Auto Urine Ascorbic Acid 12/13/16 12/13/16 12/13/16 19:45 20:28 21:31 WBC RBC Hgb Hct MCV MCH MCHC RDW Plt Count Seg Neutrophils % Lymphocytes % Monocytes % Eosinophils % Basophils % Absolute Neutrophils Absolute Lymphocytes Absolute Monocytes Absolute Eosinophils Absolute Basophils Sodium Potassium Chloride Carbon Dioxide Anion Gap BUN Creatinine Est GFR ( Amer) Est GFR (Non-Af Amer) Glucose POC Glucose 262 H 210 H Hemoglobin A1c % Calcium Magnesium Total Bilirubin Direct Bilirubin Indirect Bilirubin Neonat Total Bilirubin AST ALT Alkaline Phosphatase Creatine Kinase CK-MB (CK-2) Troponin I Total Protein Albumin Triglycerides Cholesterol LDL Cholesterol Direct VLDL Cholesterol HDL Cholesterol Vitamin B12 TSH 1.28 Urine Color Urine Appearance Urine pH Ur Specific [place] Urine Protein Urine Glucose (UA) Urine Ketones Urine Blood Urine Nitrite Urine Bilirubin Urine Urobilinogen Ur Leukocyte Esterase Urine WBC (Auto) Urine RBC (Auto) Squamous Epi Cells Auto Urine Ascorbic Acid 12/13/16 12/13/16 12/13/16 22:25 23:30 23:49 WBC RBC Hgb Hct MCV MCH MCHC RDW Plt Count Seg Neutrophils % Lymphocytes % Monocytes % Eosinophils % Basophils % Absolute Neutrophils Absolute Lymphocytes Absolute Monocytes Absolute Eosinophils Absolute Basophils Sodium 141.3 Potassium 3.5 L Chloride 107 Carbon Dioxide 26 Anion Gap 8 BUN 14 Creatinine 0.67 Est GFR ( Amer) > 60 Est GFR (Non-Af Amer) > 60 Glucose 128 H POC Glucose 175 H 132 H Hemoglobin A1c % Calcium 9.2 Magnesium Total Bilirubin Direct Bilirubin Indirect Bilirubin Neonat Total Bilirubin AST ALT Alkaline Phosphatase Creatine Kinase CK-MB (CK-2) Troponin I Total Protein Albumin Triglycerides Cholesterol LDL Cholesterol Direct VLDL Cholesterol HDL Cholesterol Vitamin B12 TSH Urine Color Urine Appearance Urine pH Ur Specific [place] Urine Protein Urine Glucose (UA) Urine Ketones Urine Blood Urine Nitrite Urine Bilirubin Urine Urobilinogen Ur Leukocyte Esterase Urine WBC (Auto) Urine RBC (Auto) Squamous Epi Cells Auto Urine Ascorbic Acid 12/14/16 12/14/16 12/14/16 00:29 01:26 02:36 WBC RBC Hgb Hct MCV MCH MCHC RDW Plt Count Seg Neutrophils % Lymphocytes % Monocytes % Eosinophils % Basophils % Absolute Neutrophils Absolute Lymphocytes Absolute Monocytes Absolute Eosinophils Absolute Basophils Sodium Potassium Chloride Carbon Dioxide Anion Gap BUN Creatinine Est GFR ( Amer) Est GFR (Non-Af Amer) Glucose POC Glucose 88 139 H 148 H Hemoglobin A1c % Calcium Magnesium Total Bilirubin Direct Bilirubin Indirect Bilirubin Neonat Total Bilirubin AST ALT Alkaline Phosphatase Creatine Kinase CK-MB (CK-2) Troponin I Total Protein Albumin Triglycerides Cholesterol LDL Cholesterol Direct VLDL Cholesterol HDL Cholesterol Vitamin B12 TSH Urine Color Urine Appearance Urine pH Ur Specific [place] Urine Protein Urine Glucose (UA) Urine Ketones Urine Blood Urine Nitrite Urine Bilirubin Urine Urobilinogen Ur Leukocyte Esterase Urine WBC (Auto) Urine RBC (Auto) Squamous Epi Cells Auto Urine Ascorbic Acid 12/14/16 12/14/16 12/14/16 04:00 04:00 04:00 WBC 7.9 RBC 4.60 Hgb 13.9 Hct 41.3 MCV 90 MCH 30.2 MCHC 33.7 RDW 13.9 Plt Count 214 Seg Neutrophils % 64.7 Lymphocytes % 23.6 Monocytes % 8.7 Eosinophils % 2.4 Basophils % 0.6 Absolute Neutrophils 5.1 Absolute Lymphocytes 1.8 Absolute Monocytes 0.7 Absolute Eosinophils 0.2 Absolute Basophils 0.0 Sodium 137.6 Potassium 4.1 Chloride 107 Carbon Dioxide 25 Anion Gap 6 BUN 14 Creatinine 0.67 Est GFR ( Amer) > 60 Est GFR (Non-Af Amer) > 60 Glucose 235 H POC Glucose Hemoglobin A1c % > 14.0 H Calcium 8.9 Magnesium 1.9 Total Bilirubin Direct Bilirubin Indirect Bilirubin Neonat Total Bilirubin AST ALT Alkaline Phosphatase Creatine Kinase CK-MB (CK-2) Troponin I Total Protein Albumin Triglycerides 92 Cholesterol 267.31 H LDL Cholesterol Direct 222 H VLDL Cholesterol 18.0 HDL Cholesterol 47 Vitamin B12 TSH Urine Color Urine Appearance Urine pH Ur Specific [place] Urine Protein Urine Glucose (UA) Urine Ketones Urine Blood Urine Nitrite Urine Bilirubin Urine Urobilinogen Ur Leukocyte Esterase Urine WBC (Auto) Urine RBC (Auto) Squamous Epi Cells Auto Urine Ascorbic Acid 12/14/16 12/14/16 12/14/16 04:00 06:13 07:35 WBC RBC Hgb Hct MCV MCH MCHC RDW Plt Count Seg Neutrophils % Lymphocytes % Monocytes % Eosinophils % Basophils % Absolute Neutrophils Absolute Lymphocytes Absolute Monocytes Absolute Eosinophils Absolute Basophils Sodium Potassium Chloride Carbon Dioxide Anion Gap BUN Creatinine Est GFR ( Amer) Est GFR (Non-Af Amer) Glucose POC Glucose 203 H 247 H 298 H Hemoglobin A1c % Calcium Magnesium Total Bilirubin Direct Bilirubin Indirect Bilirubin Neonat Total Bilirubin AST ALT Alkaline Phosphatase Creatine Kinase CK-MB (CK-2) Troponin I Total Protein Albumin Triglycerides Cholesterol LDL Cholesterol Direct VLDL Cholesterol HDL Cholesterol Vitamin B12 TSH Urine Color Urine Appearance Urine pH Ur Specific [place] Urine Protein Urine Glucose (UA) Urine Ketones Urine Blood Urine Nitrite Urine Bilirubin Urine Urobilinogen Ur Leukocyte Esterase Urine WBC (Auto) Urine RBC (Auto) Squamous Epi Cells Auto Urine Ascorbic Acid 12/14/16 12/14/16 08:13 11:56 WBC RBC Hgb Hct MCV MCH MCHC RDW Plt Count Seg Neutrophils % Lymphocytes % Monocytes % Eosinophils % Basophils % Absolute Neutrophils Absolute Lymphocytes Absolute Monocytes Absolute Eosinophils Absolute Basophils Sodium 136.3 L Potassium 4.5 Chloride 105 Carbon Dioxide 22 Anion Gap 9 BUN 15 Creatinine 0.73 Est GFR ( Amer) > 60 Est GFR (Non-Af Amer) > 60 Glucose 348 H POC Glucose 334 H Hemoglobin A1c % Calcium 9.0 Magnesium Total Bilirubin Direct Bilirubin Indirect Bilirubin Neonat Total Bilirubin AST ALT Alkaline Phosphatase Creatine Kinase CK-MB (CK-2) Troponin I Total Protein Albumin Triglycerides Cholesterol LDL Cholesterol Direct VLDL Cholesterol HDL Cholesterol Vitamin B12 TSH Urine Color Urine Appearance Urine pH Ur Specific [place] Urine Protein Urine Glucose (UA) Urine Ketones Urine Blood Urine Nitrite Urine Bilirubin Urine Urobilinogen Ur Leukocyte Esterase Urine WBC (Auto) Urine RBC (Auto) Squamous Epi Cells Auto Urine Ascorbic Acid Impressions: Chest X-Ray 12/13/16 13:01 IMPRESSION: No significant interval change. No acute findings. Other findings as noted above Head CT 12/14/16 00:00 IMPRESSION: NORMAL BRAIN CT WITHOUT CONTRAST. Plan Time Spent: Greater than 30 Minutes
[2016-12-14] MEDS ORDERED: INSULIN GLARGINE,HUM.REC.ANLOG 300 UNIT/3 ML INSULN.PEN SUBCUT ONE (17:00)
[2016-12-14] MEDS ORDERED: METOPROLOL TARTRATE 50 MG TABLET PO SCH (18:00)
[2016-12-14] MEDS ORDERED: LEVETIRACETAM 1000 MG/NACL-ISO 1,000 MG/100 ML RTUPB IV SCH (22:00)
[2016-12-14] MEDS ORDERED: ATORVASTATIN CALCIUM 40 MG TABLET PO SCH ×2 (22:00)
[2016-12-14 23:41] VITALS: BP 124/85
[2016-12-15] MEDS ORDERED: INSULIN GLARGINE,HUM.REC.ANLOG 300 UNIT/3 ML INSULN.PEN SUBCUT SCH (10:00)
[2016-12-15] MEDS ORDERED: ENOXAPARIN SODIUM INJ 40 MG/0.4 ML DISP.SYRIN SUBCUT SCH (10:00)
[2016-12-15] MEDS ORDERED: ASPIRIN 81 MG TABLET, ENT COATED PO SCH ×2 (10:00)
== END 2016-12-14 23:40 | disposition short-term general hospital (02) | DRG 308 ==
LOC: ER 12:46 → UNDOADMIN 15:07 → EH 15:07 → 3S 17:00 → UNDODISIN 12-14 10:56
PROVIDERS: ADMIT Internal Medicine; ATTEND Internal Medicine
PROC: 5A09457 Assistance with Respiratory Ventilation, 24-96 Consecutive Hours, Continuous Positive Airway Pressure (ICD-10-PCS; principal; 2016-12-13)
DX: I48.2 Chronic atrial fibrillation (principal); I63.9 Cerebral infarction, unspecified; R47.01 Aphasia; R56.9 Unspecified convulsions; E11.42 Type 2 diabetes mellitus with diabetic polyneuropathy; E11.65 Type 2 diabetes mellitus with hyperglycemia; I10 Essential (primary) hypertension; I25.10 Atherosclerotic heart disease of native coronary artery without angina pectoris; T50.906A Underdosing of unspecified drugs, medicaments and biological substances, initial encounter; F17.210 Nicotine dependence, cigarettes, uncomplicated; M10.9 Gout, unspecified; Z95.818 Presence of other cardiac implants and grafts; Z91.128 Patient's intentional underdosing of medication regimen for other reason; Z86.73 Personal history of transient ischemic attack (TIA), and cerebral infarction without residual deficits; I25.2 Old myocardial infarction; Z82.49 Family history of ischemic heart disease and other diseases of the circulatory system; Z79.84 Long term (current) use of oral hypoglycemic drugs; Z79.899 Other long term (current) drug therapy; Z93.6 Other artificial openings of urinary tract status
CPT/HCPCS: 36415; 70450; 71020; 80048; 80053; 80061; 81001; 82550; 82553; 82607; 82962; 83036; 83735; 84443; 84484; 85025; 93005; 93010; 94660; 96360; 99285; J0360; J1815; J1940; J1953; J2060; J3490; J7030

== ENCOUNTER 2016-12-24 00:15 | Observation (INO) | payer OTHER, MEDICARE ==
[2016-12-24 01:09] LABS: ABSOLUTE BASOPHILS # (AUTO) 0.1 10^3/uL (0.0-0.2); ABSOLUTE EOSINOPHILS # (AUTO) 0.3 10^3/uL (0.0-0.6); ABSOLUTE MONOCYTES (AUTO) 0.7 10^3/uL (0.1-1.4); ABSOLUTE NEUT (AUTO) 4.3 10^3/uL (1.7-8.2); EOSINOPHILS % (AUTO) 3.5 % (0-6); HEMATOCRIT 39.4 % (37.9-51.0); HGB HCT DIFFERENCE -0.4; LYMPHOCYTES % (AUTO) 27.6 % (13-45); MEAN CORPUSCULAR HEMOGLOBIN 29.8 pg (27.0-33.4); MEAN CORPUSCULAR VOLUME 90 fl (80-97); MONOCYTES % (AUTO) 9.3 % (3-13); RED BLOOD COUNT 4.37 10^6/uL (4.35-5.55); RED CELL DISTRIBUTION WIDTH 13.8 % (11.5-14.0); SEGMENTED NEUTROPHILS % (AUTO) 58.6 % (42-78); WHITE BLOOD COUNT 7.3 10^3/uL (4.0-10.5)
[2016-12-24 01:11] LABS: PROTHROMBIN TIME 13.4 SEC (11.4-15.4)
--- NOTE | 2016-12-24 01:13 | ER Document Report ---
ED General - General Chief Complaint: Shortness Of Breath Stated Complaint: SHORTNESS OF BREATH Time Seen by Provider: 12/24/16 00:51 TRAVEL OUTSIDE OF THE [place] IN LAST 30 DAYS: No - HPI Notes: 61-year-old male with prior history of atrial fibrillation and fairly recent stroke with persisting right hemiparesis presents with shortness of breath. This is been present most of the day today. EMS noted the patient to be in the 30s. Recently had his clonidine increased by his PCP and eventually had taken a total of 1.5 mg of clonidine today as his systolic blood pressure was greater than 200. He denies any chest pain. Denies any new cough or cold symptoms. No abdominal pain or vomiting. No new focal weakness numbness or tingling. - Related Data Allergies/Adverse Reactions: No Known Allergies Allergy (Verified 12/13/16 13:04) Home Medications: Current Home Medications Diltiazem HCl [Diltiazem ER] 240 mg PO DAILY 12/24/16 [History] Insulin Glargine,Hum.rec.anlog [Lantus Solostar] 20 unit SUBCUT QHS 12/24/16 [ History] Magnesium Oxide 400 mg PO DAILY 12/24/16 [History] Metoprolol Succinate 200 mg PO DAILY 12/24/16 [History] Past Medical History - Social History Smoking Status: Unknown if Ever Smoked Family History: Reviewed & Not Pertinent Patient has suicidal ideation: No Patient has homicidal ideation: No - Past Medical History Cardiac Medical History: Reports: Hx Atrial Fibrillation, Hx Coronary Artery Disease, Hx Heart Attack - "Massive" heart attack in 2010 had balloon angioplasty, no stents., Hx Hypercholesterolemia, Hx Hypertension Neurological Medical History: Reports: Hx Cerebrovascular Accident - Hemorrhagic left MCA territory infarct on 08/26/2015 Endocrine Medical History: Reports: Hx Diabetes Mellitus Type 2 Renal/ Medical History: Denies: Hx Peritoneal Dialysis Musculoskeltal Medical History: Reports Hx Gout Psychiatric Medical History: Denies: Hx Depression Past Surgical History: Reports: Hx Cardiac Catheterization - With balloon angioplasty., Hx Cardiac Surgery - watchmen device 2015, Hx Kidney (Renal Surgery) - Renal stent, Hx Vascular Surgery - Renal artery stent placement, Other - Watchman's device placed at [facility] last year - Immunizations Hx Diphtheria, Pertussis, Tetanus Vaccination: - Unknown Review of Systems - Review of Systems -: Yes All other systems reviewed and negative Physical Exam - Vital signs Vitals: Resp BP Pulse Ox 16 171/119 H 97 12/24/16 01:01 12/24/16 01:01 12/24/16 01:01 Notes: See nurse's notes - Notes Notes: Physical Exam: GENERAL: VS as per nursing doc. Well-appearing, well-nourished and in no acute distress. Somnolent HEAD: Atraumatic, normocephalic. EYES: Pupils equal round and reactive to light, extraocular movements intact, sclera anicteric, no conjunctival injection or discharge. ENT: Nares patent, oropharynx clear without exudates. Moist mucous membranes. NECK: Normal range of motion, supple without lymphadenopathy. LUNGS: Breath sounds clear to auscultation bilaterally and equal. Scattered crackles are noted HEART: Bradycardic, irregularly irregular rhythm with rate while he is sleeping in the 50s-60s ABDOMEN: Soft, non-tender EXTREMITIES: Normal range of motion. No calf tenderness. 1+ edema right lower extremity, 2+ edema left lower extremity NEUROLOGICAL: No wrist extension noted bilaterally. Atrophy and muscular wasting noted. There is slight decreased strength on the right compared to the left PSYCH: Normal mood, normal affect. SKIN: Warm, dry, no cyanosis, no splinter hemorrhages. Cap refill < 2 sec. Course - Re-evaluation Re-evalutation: 12/24/16 04:54 Heart rate remained in the upper 50s-60's for the most part but did occasionally drop to upper 40s. Blood pressure remained elevated. We will give the patient a small dose of Vasotec to help with the afterload. He is starting to diurese a little bit. - Vital Signs Vital signs: Temp Pulse Resp BP Pulse Ox 15 175/119 H 99 12/24/16 02:28 12/24/16 02:28 12/24/16 02:28 - Laboratory Result Diagrams: 12/24/16 00:38 12/24/16 00:38 Laboratory results interpreted by me: 12/24/16 12/24/16 12/24/16 00:38 00:38 01:25 Hgb 13.0 L VBG pH 7.44 H Sodium 131.1 L Chloride 97 L Glucose 344 H Total Protein 5.9 L Albumin 2.8 L - Diagnostic Test Radiology reviewed: Image reviewed, Reports reviewed - Mild CHF, small right pleural effusion - EKG Interpretation by Ut Rhythm: A.Fib - Heart rate 50s, nonspecific T-wave abnormalities more in the lateral leads, no obvious ischemia. QRS of normal duration - Consults Mozi Time consulted: 04:30 - Awaiting return call. 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 Monikai II Time consulted: 05:06 Reason for consultation: 12/24/16 05:06 Consulted for admission. Consulted provider: will see as inpatient Discharge - Discharge Clinical Impression: CHF (congestive heart failure), Bradycardia Condition: Fair Disposition: ADMITTED OBSERVATION Admitting Provider: Jh Unit Admitted: Telemetry
[2016-12-24 01:15] LABS: ALANINE AMINOTRANSFERASE 42 U/L (21-72); ALBUMIN 2.8 g/dL (3.5-5.0); ALKALINE PHOSPHATASE 111 U/L (38-126); ANION GAP 7 (5-19); ASPARTATE AMINO TRANSFERASE 40 U/L (17-59); BILIRUBIN,DIRECT 0.3 mg/dL (0.0-0.4); BILIRUBIN,TOTAL 0.5 mg/dL (0.2-1.3); BLOOD UREA NITROGEN 18 mg/dL (7-20); CALCIUM 9.2 mg/dL (8.4-10.2); CARBON DIOXIDE 27 mmol/L (22-30); CHLORIDE 97 mmol/L (98-107); CREATININE RESULT 0.74 mg/dL (0.52-1.25); GLUCOSE 344 mg/dL (75-110); MAGNESIUM 1.9 mg/dL (1.6-2.3); POTASSIUM 4.1 mmol/L (3.6-5.0); SODIUM 131.1 mmol/L (137-145); TOTAL PROTEIN 5.9 g/dL (6.3-8.2)
[2016-12-24 01:50] LABS: VENOUS BLOOD BASE EXCESS 3.8 mmol/L; VENOUS BLOOD HCO3 28.5 mmol/L (20-32); VENOUS BLOOD PCO2 43.1 mmHg (35-63); VENOUS BLOOD PH 7.44 (7.30-7.42)
--- NOTE | 2016-12-24 02:07 | RADIOLOGY REPORT (SQ) ---
EXAM DESCRIPTION: CHEST SINGLE VIEW COMPLETED DATE/TIME: 12/24/2016 1:34 am REASON FOR STUDY: Dyspnea COMPARISON: 12/13/2016. 08/26/2015. EXAM PARAMETERS: NUMBER OF VIEWS: One view. TECHNIQUE: Single frontal radiographic view of the chest acquired. RADIATION DOSE: NA LIMITATIONS: None. FINDINGS: LUNGS AND PLEURA: Mild interstitial markings, chronic. Likely small moderate right pleura l effusion obscures the right costophrenic angle. MEDIASTINUM AND HILAR STRUCTURES: No masses. Contour normal. HEART AND VASCULAR STRUCTURES: Moderate enlargement of the cardiac silhouette. BONES: No acute findings. HARDWARE: None in the chest. OTHER: No other significant finding. IMPRESSION: New small to moderate right pleural effusion. Mild chronic interstitial lung disease an d/or mild pulmonary edema. TECHNICAL DOCUMENTATION: JOB ID: [id number]
[2016-12-24] MEDS ORDERED: FUROSEMIDE INJ/PF 20 MG/2 ML SDV IV ONE (02:40)
[2016-12-24] MEDS ORDERED: ENALAPRILAT DIHYDRATE INJ/PF 1.25 MG/1 ML SDV IV ONE (04:47)
[2016-12-24 07:50] LABS: HEMATOCRIT 39.8 % (37.9-51.0); HEMOGLOBIN 13.5 g/dL (13.5-17.0); HGB HCT DIFFERENCE 0.7; MEAN CORPUSCULAR HGB CONC 33.9 g/dL (32.0-36.0); MEAN CORPUSCULAR VOLUME 89 fl (80-97); RED BLOOD COUNT 4.49 10^6/uL (4.35-5.55); RED CELL DISTRIBUTION WIDTH 13.8 % (11.5-14.0); WHITE BLOOD COUNT 7.3 10^3/uL (4.0-10.5)
[2016-12-24] MEDS ORDERED: HYDRALAZINE HCL INJ/PF 20 MG/1 ML SDV IV PRN (07:53)
[2016-12-24] MEDS ORDERED: DOCUSATE SODIUM 100 MG CAPSULE PO PRN (07:54)
[2016-12-24] MEDS ORDERED: ZOLPIDEM TARTRATE 5 MG TABLET PO PRN (07:55)
[2016-12-24] MEDS ORDERED: DEXTROSE 50%-WATER SYRINGE 12.5 GM/25 ML DOSE IV PRN (07:57)
[2016-12-24] MEDS ORDERED: DEXTROSE 40% GEL 15 GM TUBE X 2 PO PRN (07:57)
[2016-12-24] MEDS ORDERED: GLUCAGON,HUMAN RECOMB 1 MG INJ IM PRN (07:57)
[2016-12-24] MEDS ORDERED: DEXTROSE 40% GEL 15 GM TUBE PO PRN (07:57)
[2016-12-24] MEDS ORDERED: DEXTROSE 50%-WATER SYRINGE 25 GM/50 ML DOSE IV PRN (07:57)
[2016-12-24] MEDS ORDERED: INSULIN LISPRO 100 UNIT/ML 3 ML VIAL SUBCUT PRN (08:10)
[2016-12-24 08:14] LABS: ALANINE AMINOTRANSFERASE 40 U/L (21-72); ALBUMIN 2.8 g/dL (3.5-5.0); ALKALINE PHOSPHATASE 101 U/L (38-126); ANION GAP 8 (5-19); ASPARTATE AMINO TRANSFERASE 36 U/L (17-59); BILIRUBIN,DIRECT 0.4 mg/dL (0.0-0.4); BILIRUBIN,TOTAL 0.7 mg/dL (0.2-1.3); BLOOD UREA NITROGEN 15 mg/dL (7-20); CALCIUM 9.2 mg/dL (8.4-10.2); CARBON DIOXIDE 28 mmol/L (22-30); CHLORIDE 101 mmol/L (98-107); CREATININE RESULT 0.64 mg/dL (0.52-1.25); GLUCOSE 220 mg/dL (75-110); POTASSIUM 3.6 mmol/L (3.6-5.0); SODIUM 136.9 mmol/L (137-145)
[2016-12-24] MEDS: INSULIN LISPRO 100 UNIT/ML 3 ML VIAL SUBCUT PRN ×2 (08:30→12:49)
--- NOTE | 2016-12-24 09:53 | PDOC H&P ---
History of Present Illness Admission Date/PCP: 12/24/16 05:18 Patient complains of: Dyspnea, elevated BP, Took extra dose of clonidine and heart dropped to 30-40s as per pt. History of Present Illness: DANNI CROUCH is a 61 year old male with hx of DM2/HTN/Hyperlipidemia/CAD s.p angioplasty/A-fib s.p left atrial appendage surgery/SHARATH on CPAP/DM neuropathy/ Renal artery stenosis s.p right renal artery stent, who was recently discharged from [facility] for CVA with residual right hemiparesis. He is chronically non- compliant with medications and follow up visits and was recently discharged from [facility] on 09/15/2016 where he was treated for uncontrolled DM,HTN and A-fib. He was in his baseline until the day of presentation when he started having dyspnea and elevated BP. He took Clonidine 0.1mg TID as prescribed on discharge from [place] and he also filled and took the clonidine 0.3mg prescribed by his PCP earlier. His heart rate dropped to 30-40s as per pt and he decided to come to ER. At ER, his heart rate was in 50-60s. He also has patrizia. leg swelling but denied chest pain, palpitations, dizziness,orthopnea and PND. Past Medical History Cardiac Medical History: Reports: Atrial Fibrillation, Coronary Artery Disease, Myocardial Infarction - "Massive" heart attack in 2010 had balloon angioplasty, no stents., Hyperlipidema, Hypertension Endocrine Medical History: Reports: Diabetes Mellitus Type 2 Musculoskeltal Medical History: Reports: Gout Psychiatric Medical History: Denies: Depression Past Surgical History Past Surgical History: Reports: Cardiac Catheterization - With balloon angioplasty., Vascular Surgery - Renal artery stent placement, Other - Watchman' s device placed at [facility] last year Social History Smoking Status: Former Smoker Cigarettes Packs Per Day: 1 Number of Years Smokin Last Time Smoked: 05/04/2011 Frequency of Alcohol Use: Occasional Hx Recreational Drug Use: No Drugs: None Hx Prescription Drug Abuse: No - Advance Directive Resuscitation Status: Full Code Family History Family History: Reviewed & Not Pertinent Parental Family History Reviewed: Yes Children Family History Reviewed: Yes Sibling(s) Family History Reviewed.: Yes Medication/Allergy Home Medications: Clonidine HCl [Catapres 0.3 mg Tablet] 0.6 mg PO Q12 12/13/16 Diltiazem HCl [Diltiazem ER] 240 mg PO DAILY 12/24/16 Insulin Glargine,Hum.rec.anlog [Lantus Solostar] 20 unit SUBCUT QHS 12/24/16 Magnesium Oxide 400 mg PO DAILY 12/24/16 Metoprolol Succinate 200 mg PO DAILY 12/24/16 Allergies/Adverse Reactions: No Known Allergies Allergy (Verified 12/13/16 13:04) Review of Systems All systems: reviewed and no additional remarkable complaints except as stated Constitutional: PRESENT: as per HPI Eyes: PRESENT: as per HPI Ears: PRESENT: as per HPI Nose, Mouth, and Throat: PRESENT: as per HPI Cardiovascular: PRESENT: dyspnea on exertion, edema Respiratory: PRESENT: dyspnea Gastrointestinal: PRESENT: as per HPI Genitourinary: PRESENT: as per HPI Musculoskeletal: PRESENT: as per HPI Integumentary: PRESENT: as per HPI Neurological: PRESENT: as per HPI Psychiatric: PRESENT: as per HPI Endocrine: PRESENT: as per HPI Hematologic/Lymphatic: PRESENT: as per HPI Allergic/Immunologic: PRESENT: as per HPI Physical Exam Vital Signs: Temp Pulse Resp BP Pulse Ox 97.8 F 55 L 18 146/100 H 97 12/24/16 08:15 12/24/16 08:17 12/24/16 08:15 12/24/16 08:17 12/24/16 08:15 Intake & Output 12/23/16 12/24/16 12/25/16 06:59 06:59 06:59 Output Total 1050 Balance -1050 Weight 81.3 kg General appearance: PRESENT: no acute distress, cooperative, well-developed Head exam: PRESENT: atraumatic, normocephalic Eye exam: PRESENT: EOMI, PERRLA Mouth exam: PRESENT: neck supple, tongue midline Respiratory exam: PRESENT: decreased breath sounds Cardiovascular exam: PRESENT: irregular rhythm, +S1, +S2 Pulses: PRESENT: +2 pedal pulses bilateral GI/Abdominal exam: PRESENT: normal bowel sounds, soft Rectal exam: PRESENT: deferred Extremities exam: PRESENT: pedal edema Neurological exam: PRESENT: alert, awake, oriented to person, oriented to place , oriented to time Additional comments: Right hemiparesis Psychiatric exam: PRESENT: normal mood Results Laboratory Results: 12/24/16 07:40 12/24/16 07:40 12/24/16 12/24/16 12/24/16 07:40 07:40 07:40 WBC 7.3 RBC 4.49 Hgb 13.5 Hct 39.8 MCV 89 MCH 30.0 MCHC 33.9 RDW 13.8 Plt Count 282 Sodium 136.9 L Potassium 3.6 Chloride 101 Carbon Dioxide 28 Anion Gap 8 BUN 15 Creatinine 0.64 Est GFR ( Amer) > 60 Est GFR (Non-Af Amer) > 60 Glucose 220 H Calcium 9.2 Total Bilirubin 0.7 AST 36 ALT 40 Alkaline Phosphatase 101 Total Protein 6.0 L Albumin 2.8 L TSH 2.29 Impressions: Chest X-Ray 12/24/16 01:00 IMPRESSION: New small to moderate right pleural effusion. Mild chronic interstitial lung disease and/or mild pulmonary edema. Assessment & Plan - Diagnosis (1) Hypertensive emergency Is this a current diagnosis for this admission?: Yes Plan: Ct with Hydralzine 10 mg q4h IV prn; Metoprolol 100 mg BID pO; Cardizem ER 360 mg qd po; Clonidine 0.1 mg TID po; 2 g sodium diet. (2) CHF (congestive heart failure) Qualifiers: Congestive heart failure type: diastolic Congestive heart failure chronicity: acute on chronic Qualified Code(s): I50.33 - Acute on chronic diastolic (congestive) heart failure Is this a current diagnosis for this admission?: Yes Plan: Lasix 20 mg qd IV; strict in put/out put chart; daily wt; monitor chemistries daily; ECHO if none in the last 6 months. (3) Bradycardia Is this a current diagnosis for this admission?: Yes Plan: Monitor him on telemetry; Hold Metoprolol ER and switch to Metoprolol tartrate 100mg BID po. (4) Diabetes mellitus Qualifiers: Diabetes mellitus type: type 2 Diabetes mellitus complication status: with neurologic complications Diabetes mellitus complication detail: with polyneuropathy Diabetes mellitus long-term insulin use: with long-term use Qualified Code(s): E11.42 - Type 2 diabetes mellitus with diabetic polyneuropathy; Z79.4 - buttermaker (current) use of insulin Is this a current diagnosis for this admission?: Yes Plan: Ct with Lantus 20 iu qhs subcut; Metformin 1000 mg BID; Accucheck qac, qhs with slidding scale with humalog insulin [facility] protocol; 1800 calorie ADA diet. (5) Coronary artery disease Is this a current diagnosis for this admission?: Yes Plan: Ct with ASA 81 mg qd po; Cardiac diet (6) Acute CVA (cerebrovascular accident) Is this a current diagnosis for this admission?: Yes Plan: Ct with ASA 81 mg qd po; cardiac diet. (7) SHARATH (obstructive sleep apnea) Is this a current diagnosis for this admission?: Yes Plan: Ct with CPAP at night. (8) Hyperlipidemia Qualifiers: Hyperlipidemia type: mixed hyperlipidemia Qualified Code(s): E78.2 - Mixed hyperlipidemia Is this a current diagnosis for this admission?: Yes Plan: Ct with Atorvastatin 20 mg qhs po. (9) DVT prophylaxis Is this a current diagnosis for this admission?: Yes Plan: Ct with Lovenox 40 mg qd subcut; SCD. - Time Time Spent: 30 to 50 Minutes Medications reviewed and adjusted accordingly: Yes Anticipated discharge: Home Within: within 36 hours - Inpatient Certification Medical Necessity: Failure to Improve With Outpatient Therapy, Significant Comorbidiites Make Outpatient Treatment Too Risky, Need Close Monitoring Due to Risk of Patient Decompensation, Need For Continuous Telemetry Monitoring, Risk of Complication if Not Cared For in Hospital, Risk of Diagnosis Which Will Require Inpatient Eval/Care/Monitoring
[2016-12-24] MEDS ORDERED: METOPROLOL SUCCINATE 50 MG TAB.SR.24H PO SCH (10:00)
[2016-12-24] MEDS ORDERED: DILTIAZEM HCL 240 MG CAPSULE.CR PO SCH (10:00)
[2016-12-24] MEDS ORDERED: ENOXAPARIN SODIUM INJ 40 MG/0.4 ML DISP.SYRIN SUBCUT SCH (10:00)
[2016-12-24] MEDS ORDERED: FUROSEMIDE INJ/PF 20 MG/2 ML SDV IV SCH (10:00)
--- NOTE | 2016-12-24 10:22 | EKG REPORT ---
SEVERITY:- ABNORMAL ECG - ATRIAL FIBRILLATION, V-RATE 52-70 NONSPECIFIC T ABNORMALITIES, LATERAL LEADS : Confirmed by: Moe Devi 24-Dec-2016 10:21:47
[2016-12-24] MEDS: MAGNESIUM OXIDE 400 MG TABLET PO SCH (12:50)
[2016-12-24] MEDS: FUROSEMIDE INJ/PF 20 MG/2 ML SDV IV SCH (12:50)
[2016-12-24] MEDS: ASPIRIN 81 MG TABLET, ENT COATED PO SCH (12:50)
[2016-12-24] MEDS: LANSOPRAZOLE 30 MG TAB.RAP.DR PO SCH (12:50)
[2016-12-24] MEDS ORDERED: INSULIN LISPRO 100 UNIT/ML 3 ML VIAL SUBCUT SCH ×2 (14:00→22:00)
[2016-12-24] MEDS ORDERED: CLONIDINE HCL 0.1 MG TABLET PO SCH (14:00)
[2016-12-24] MEDS ORDERED: ATORVASTATIN CALCIUM 20 MG TABLET PO SCH (22:00)
[2016-12-24] MEDS: METOPROLOL TARTRATE 100 MG TABLET PO SCH (22:33)
[2016-12-24] MEDS: HYDRALAZINE HCL 50 MG TABLET PO SCH (22:33)
--- NOTE | 2016-12-24 22:47 | PDOC CONSULTATION ---
Consultation Consult Date: 12/24/16 Attending physician:: JHONATHAN CONCEPCION Consult reason:: Atrial fibrillation History of Present Illness Admission Date/PCP: 12/24/16 05:18 Patient complains of: Low heart rate History of Present Illness: DANNI CROUCH is a 61 year old male with hx of DM2/HTN/Hyperlipidemia/CAD s.p angioplasty/A-fib s.p left atrial appendage surgery/SHARATH on CPAP/DM neuropathy/ Renal artery stenosis s.p right renal artery stent, who was recently discharged from [facility] for CVA with residual right hemiparesis. He is chronically non- compliant with medications and follow up visits and was recently [facility] where he was treated for uncontrolled DM,HTN and A-fib. He was in his baseline until the day of presentation when he started having dyspnea and elevated BP. He took Clonidine 0.1mg TID as prescribed on discharge from [place] and he also filled and took the clonidine 0.3mg prescribed by his PCP earlier. His heart rate dropped to 30-40s as per pt and he decided to come to ER. At ER, his heart rate was in 50-60s. He also has patrizia. leg swelling but denied chest pain, palpitations, dizziness,orthopnea and PND. This history was reviewed, supplemented and confirmed Past Medical History Cardiac Medical History: Reports: Atrial Fibrillation, Coronary Artery Disease, Myocardial Infarction - "Massive" heart attack in 2010 had balloon angioplasty, no stents., Hyperlipidema, Hypertension Endocrine Medical History: Reports: Diabetes Mellitus Type 2 Musculoskeltal Medical History: Reports: Gout Psychiatric Medical History: Denies: Depression Past Surgical History Past Surgical History: Reports: Cardiac Catheterization - With balloon angioplasty., Vascular Surgery - Renal artery stent placement, Other - Watchman' s device placed at [facility] last year Social History Information Source: Patient Smoking Status: Former Smoker Cigarettes Packs Per Day: 1 Number of Years Smokin Last Time Smoked: 05/04/2011 Frequency of Alcohol Use: Occasional Hx Recreational Drug Use: No Drugs: None Hx Prescription Drug Abuse: No - Advance Directive Resuscitation Status: Full Code Surrogate healthcare decision maker:: Family History Family History: CAD, Hypertension Parental Family History Reviewed: Yes Children Family History Reviewed: Yes Sibling(s) Family History Reviewed.: Yes Medication/Allergy Home Medications: Insulin Glargine,Hum.rec.anlog [Lantus Solostar] 20 unit SUBCUT QHS 12/24/16 Magnesium Oxide 400 mg PO DAILY 12/24/16 Aspirin [Ecotrin 81 mg EC Tablet] 81 mg PO DAILY tabec 12/25/16 Atorvastatin Calcium [Lipitor 20 mg Tablet] 20 mg PO QHS tablet 12/25/16 Glipizide [Glipizide ER] 10 mg PO DAILY #30 tab.er.24 12/25/16 Hydralazine HCl [Apresoline 50 mg Tablet] 100 mg PO Q8 #90 tablet 12/25/16 Metformin HCl [Glucophage] 1,000 mg PO BID 6 Days #60 tablet 12/25/16 Metoprolol Tartrate [Lopressor 100 mg Tablet] 100 mg PO Q12 #60 tablet 12/25/16 Allergies/Adverse Reactions: No Known Allergies Allergy (Verified 12/13/16 13:04) Review of Systems Constitutional: ABSENT: chills, fever(s), headache(s), weight gain, weight loss Eyes: ABSENT: visual disturbances Ears: ABSENT: hearing changes Nose, Mouth, and Throat: ABSENT: as per HPI, headache(s), mouth pain, sore throat, vertigo, other Cardiovascular: PRESENT: dyspnea on exertion, edema. ABSENT: chest pain, orthropnea, palpitations Respiratory: PRESENT: dyspnea. ABSENT: cough, hemoptysis Gastrointestinal: ABSENT: abdominal pain, constipation, diarrhea, hematemesis, hematochezia, nausea, vomiting Genitourinary: ABSENT: as per HPI, difficulty urinating, dysuria, hematuria, nocturia Musculoskeletal: PRESENT: deformity, muscle weakness. ABSENT: joint swelling Integumentary: ABSENT: rash, wounds Neurological: PRESENT: abnormal movements - muscle loss from peripheral neuropathy Psychiatric: ABSENT: anxiety, depression, homidical ideation, suicidal ideation Endocrine: ABSENT: cold intolerance, heat intolerance, polydipsia, polyuria Hematologic/Lymphatic: ABSENT: easy bleeding, easy bruising Physical Exam Vital Signs: Temp Pulse Resp BP Pulse Ox 97.6 F 29 L 19 117/85 94 12/24/16 15:12 12/24/16 15:12 12/24/16 15:12 12/24/16 15:12 12/24/16 15:13 Intake & Output 12/23/16 12/24/16 12/25/16 06:59 06:59 06:59 Intake Total 1488 Output Total 1050 400 Balance -1050 1088 Weight 81.3 kg General appearance: PRESENT: no acute distress, well-developed, well-nourished Head exam: PRESENT: atraumatic, normocephalic Eye exam: PRESENT: conjunctiva pink, EOMI, PERRLA. ABSENT: scleral icterus Ear exam: PRESENT: normal external ear exam Mouth exam: PRESENT: moist, tongue midline Neck exam: ABSENT: carotid bruit, JVD, lymphadenopathy, thyromegaly Respiratory exam: PRESENT: clear to auscultation patrizia. ABSENT: rales, rhonchi, wheezes Cardiovascular exam: PRESENT: bradycardia, RRR, +S1, +S2, systolic murmur Pulses: PRESENT: normal carotid pulses, normal dorsalis pedis pul Vascular exam: PRESENT: normal capillary refill GI/Abdominal exam: PRESENT: normal bowel sounds, soft. ABSENT: distended, guarding, mass, organolmegaly, rebound, tenderness Rectal exam: PRESENT: deferred Musculoskeletal exam: PRESENT: deformity, other Neurological exam: PRESENT: alert, awake, oriented to person, oriented to place , oriented to time, oriented to situation, CN II-XII grossly intact, motor sensory deficit - secondary to peripheral neuropathy Skin exam: PRESENT: dry, intact, warm. ABSENT: cyanosis, rash Results Laboratory Results: 12/24/16 07:40 12/24/16 07:40 12/24/16 12/24/16 12/24/16 07:40 07:40 07:40 WBC 7.3 RBC 4.49 Hgb 13.5 Hct 39.8 MCV 89 MCH 30.0 MCHC 33.9 RDW 13.8 Plt Count 282 Sodium 136.9 L Potassium 3.6 Chloride 101 Carbon Dioxide 28 Anion Gap 8 BUN 15 Creatinine 0.64 Est GFR ( Amer) > 60 Est GFR (Non-Af Amer) > 60 Glucose 220 H Calcium 9.2 Total Bilirubin 0.7 AST 36 ALT 40 Alkaline Phosphatase 101 Total Protein 6.0 L Albumin 2.8 L TSH 2.29 EKG Comments: A Fib, minor non specific T wave inversion Impressions: Chest X-Ray 12/24/16 01:00 IMPRESSION: New small to moderate right pleural effusion. Mild chronic interstitial lung disease and/or mild pulmonary edema. Assessment & Plan - Diagnosis (1) Bradycardia Is this a current diagnosis for this admission?: Yes (2) Hyperlipidemia Qualifiers: Hyperlipidemia type: mixed hyperlipidemia Qualified Code(s): E78.2 - Mixed hyperlipidemia Is this a current diagnosis for this admission?: Yes (3) Coronary artery disease Qualifiers: Coronary Disease-Associated Artery/Lesion type: yocha dehe artery Associated angina: angina presence unspecified Is this a current diagnosis for this admission?: Yes (4) Diabetes mellitus Qualifiers: Diabetes mellitus type: type 2 Diabetes mellitus complication status: with neurologic complications Diabetes mellitus complication detail: with polyneuropathy Diabetes mellitus technician terminal and repeater insulin use: with technician terminal and repeater use Qualified Code(s): E11.42 - Type 2 diabetes mellitus with diabetic polyneuropathy; Z79.4 - care home (current) use of insulin Is this a current diagnosis for this admission?: Yes (5) Hypertensive emergency Is this a current diagnosis for this admission?: Yes (6) Neuropathy Is this a current diagnosis for this admission?: Yes (7) SHARATH (obstructive sleep apnea) Is this a current diagnosis for this admission?: Yes (8) Atrial fibrillation, chronic Is this a current diagnosis for this admission?: Yes - Notes Notes: Bradycardia: Patient noted to have sinus bradycardia atrial fibrillation with bradycardic rhythm in the 40s. Patient however was noted to be asymptomatic. Discussed that it could be medication related. Adjustment of medications will be performed. Hyperlipidemia: LDL goal is less than 70. Recommend statin therapy at least intermediate or high dose, of high potency status. Periodic lipid panel and liver panel is indicated. Patient to report any significant muscle discomfort or other side effects. CAD: Patient has CAD. Currently stable without any angina or angina equivalent symptoms. Discussed symptoms associated with unstable angina, acute coronary syndrome, myocardial infarction etc. patient to be educated in proper instruction for nitroglycerin use and proper use of emergency services. Aggressive risk factor modification advised. Diabetes: Recommend good control of blood sugar. However should avoid any hypoglycemia. Patient being expertly managed by primary care Jerald Hypertensive emergency: Patient was noted to have extremely high blood pressure on admission but subsequently this has came down with good management instituted by the fur dyer. Blood pressure goal long-term is 135/85 or less. Neuropathy: Most likely diabetic but other and unspecified neuropathy is also in the running. Obstructive sleep apnea: Patient advised compliance with CPAP therapy. Discussed reduce risk of hypertension better control of hypertension, better control of diabetes and reduction in cardiovascular risk events with treatment of sleep apnea. Atrial fibrillation: Patient has chronic atrial fibrillation. Recommend rate control and chronic anticoagulation. Type of anticoagulation choice and whether patient is a candidate or not his best being left to fur dyer. patient currently not on chronic anticoagulation. This will be discussed as an outpatient. - Time Time Spent: 30 to 50 Minutes - CODE STATUS was discussed, patient remains full code. Surrogate decision-maker patient spouse. Multiple medical problems were addressed. More than 50% of the time spent coordinating care, discussing management plans with involved caregivers. Management plans discussed with involved personnels. Medical decision making was of moderate to high complexity , patient's has multiple comorbidities. Medications reviewed and adjusted accordingly: Yes
[2016-12-25 05:04] LABS: CHOLESTEROL 176.13 mg/dL (0-200); Direct HDL 33 mg/dL (>40); TRIGLYCERIDES 114 mg/dL (<150)
[2016-12-25 05:15] LABS: DIRECT LDL 128 mg/dL (<100)
[2016-12-25] MEDS: HYDRALAZINE HCL 50 MG TABLET PO SCH ×2 (06:06→13:39)
[2016-12-25] MEDS: LANSOPRAZOLE 30 MG TAB.RAP.DR PO SCH (10:50)
[2016-12-25] MEDS: FUROSEMIDE INJ/PF 20 MG/2 ML SDV IV SCH (10:50)
[2016-12-25] MEDS: METOPROLOL TARTRATE 100 MG TABLET PO SCH (10:51)
[2016-12-25] MEDS: ASPIRIN 81 MG TABLET, ENT COATED PO SCH (11:04)
[2016-12-25] MEDS: MAGNESIUM OXIDE 400 MG TABLET PO SCH (11:04)
--- NOTE | 2016-12-25 12:20 | PDOC DISCHARGE SUMMARY ---
General - Admit/Disc Date/PCP Admission Date/Primary Care Provider: 12/24/16 05:18 Discharge Date: 12/25/16 - Discharge Diagnosis (1) Hypertensive emergency Is this a current diagnosis for this admission?: Yes (2) CHF (congestive heart failure) Is this a current diagnosis for this admission?: Yes (3) Bradycardia Is this a current diagnosis for this admission?: Yes (4) Diabetes mellitus Is this a current diagnosis for this admission?: Yes (5) Coronary artery disease Is this a current diagnosis for this admission?: Yes (6) Acute CVA (cerebrovascular accident) Is this a current diagnosis for this admission?: Yes (7) SHARATH (obstructive sleep apnea) Is this a current diagnosis for this admission?: Yes (8) Hyperlipidemia Is this a current diagnosis for this admission?: Yes (9) DVT prophylaxis Is this a current diagnosis for this admission?: Yes - Additional Information Resuscitation Status: Full Code Discharge Diet: Cardiac, Diabetic Discharge Activity: Activity As Tolerated, Balance Activity w/Rest, Weigh Daily Home Medications: Insulin Glargine,Hum.rec.anlog [Lantus Solostar] 20 unit SUBCUT QHS 12/24/16 Magnesium Oxide 400 mg PO DAILY 12/24/16 Aspirin [Ecotrin 81 mg EC Tablet] 81 mg PO DAILY tabec 12/25/16 Atorvastatin Calcium [Lipitor 20 mg Tablet] 20 mg PO QHS tablet 12/25/16 Glipizide [Glipizide ER] 10 mg PO DAILY #30 tab.er.24 12/25/16 Hydralazine HCl [Apresoline 50 mg Tablet] 100 mg PO Q8 #90 tablet 12/25/16 Metformin HCl [Glucophage] 1,000 mg PO BID 6 Days #60 tablet 12/25/16 Metoprolol Tartrate [Lopressor 100 mg Tablet] 100 mg PO Q12 #60 tablet 12/25/16 History of Present Illness History of Present Illness: DANNI CROUCH is a 61 year old male with hx of DM2/HTN/Hyperlipidemia/CAD s.p angioplasty/A-fib s.p left atrial appendage surgery/SHARATH on CPAP/DM neuropathy/ Renal artery stenosis s.p right renal artery stent, who was recently discharged from [facility] for CVA with residual right hemiparesis. He is chronically non- compliant with medications and follow up visits and was recently discharged from [facility] on 09/15/2016 where he was treated for uncontrolled DM,HTN and A-fib. He was in his baseline until the day of presentation when he started having dyspnea and elevated BP. He took Clonidine 0.1mg TID as prescribed on discharge from [place] and he also filled and took the clonidine 0.3mg prescribed by his PCP earlier. His heart rate dropped to 30-40s as per pt and he decided to come to ER. At ER, his heart rate was in 50-60s. He also has patrizia. leg swelling but denied chest pain, palpitations, dizziness,orthopnea and PND. Hospital Course Hospital Course: He was admitted at [facility] for uncontrolled HTN/Symptomatic bradycardia and mild acute on chronic CHF decompensation. We D/C Clonidine, Cardizem and switched his Metoprolol from Succinate to Tartrate and added Hydralazine.We got ECHO and report is pending.We got cardiology consult with Dr Devi and appreciate his input in mgt of this pt. His BP is well controlled and heart rate is normal and pt is requesting for discharge home. I had a long discussion with pt and his about his chronic non-compliance with medications and instructions and they verbalized understanding. He will be D/C home today to follow up with PCP, Dr Peñaloza within 1 week. Physical Exam Vital Signs: Temp Pulse Resp BP Pulse Ox 98.3 F 97 18 127/84 H 98 12/25/16 08:37 12/25/16 08:37 12/25/16 08:37 12/25/16 08:37 12/25/16 11:31 Intake & Output 12/24/16 12/25/16 12/26/16 06:59 06:59 06:59 Intake Total 2298 Output Total 1050 500 Balance -1050 1798 Weight 81.3 kg 82.7 kg General appearance: PRESENT: no acute distress, cooperative, well-developed, well-nourished Head exam: PRESENT: atraumatic, normocephalic Eye exam: PRESENT: EOMI, PERRLA Ear exam: PRESENT: normal external ear exam, TM's normal bilaterally Mouth exam: PRESENT: neck supple, tongue midline Neck exam: PRESENT: full ROM Respiratory exam: PRESENT: clear to auscultation patrizia, symmetrical Cardiovascular exam: PRESENT: +S1, +S2 Pulses: PRESENT: +2 pedal pulses bilateral GI/Abdominal exam: PRESENT: normal bowel sounds, soft Rectal exam: PRESENT: deferred Neurological exam: PRESENT: alert, awake, oriented to person, oriented to place , oriented to time Psychiatric exam: PRESENT: normal mood Results Laboratory Results: 12/24/16 07:40 12/24/16 07:40 12/25/16 04:10 Triglycerides 114 Cholesterol 176.13 LDL Cholesterol Direct 128 H VLDL Cholesterol 23.0 HDL Cholesterol 33 L Impressions: Chest X-Ray 12/24/16 01:00 IMPRESSION: New small to moderate right pleural effusion. Mild chronic interstitial lung disease and/or mild pulmonary edema.
[2016-12-25] MEDS: INSULIN LISPRO 100 UNIT/ML 3 ML VIAL SUBCUT PRN (13:38)
[2016-12-25 14:09] VITALS: BP 124/62
--- NOTE | 2016-12-25 19:43 | XCELERA REPORT ---
[address] [address] Transthoracic Echocardiogram Report Name: DANNI CROUCH Age: 61 yrs Gender: Male : 1955 Patient Status: Inpatient Patient Location: [address] [place], [place] [address] Study Date: 12/25/2016 10:01 AM Height: 69 in Weight: 179 lb BSA: 2.0 m2 Procedure: A complete two-dimensional transthoracic echocardiogram was performed (2D, M-mode, spectral and color flow Doppler). The study was technically difficult with many images being suboptimal in quality. Reason For Study: Atrial fibrillation Ordering Physician: MOE CLARK Performed By: Boyd Tristan Interpretation Summary Left ventricular systolic function is borderline reduced. LV diastolic function could not be adequately assessed due to atrial fibrilation. There is mild concentric left ventricular hypertrophy. The left ventricle is grossly normal size. Regional wall motion abnormalities cannot be excluded due to limited visualization. Not all wall segments were well visualized. The right ventricular systolic function is mildly reduced. The right ventricle is mild to moderately dilated. The left atrium is moderately dilated. The right atrium is severely dilated. There is a mild amount of mitral regurgitation There is no mitral valve stenosis. There is a mild amount of aortic regurgitation There is no aortic valve stenosis There is a mild amount of tricuspid regurgitation There is mild to moderate pulmonary hypertension by echo Right ventricular systolic pressure is estimated to be elevated at 40- 50mmHg. There is no pericardial effusion. The study was technically difficult with many images being suboptimal in quality. MMode/2D Measurements & Calculations RVDd: 2.3 cm LVIDd: 5.7 cm FS: 30.3 % Ao root diam: 3.6 cm IVSd: 0.97 cm LVIDs: 4.0 cm EDV(Teich): 162.7 ml LVPWd: 0.92 cm ESV(Teich): 70.2 ml Ao root area: 10.4 cm2 EF(Teich): 56.9 % LA dimension: 4.5 cm Doppler Measurements & Calculations MV E max darleen: MV P1/2t max darleen: Ao V2 max: AI max darleen: 124.6 cm/sec 127.1 cm/sec 138.1 cm/sec 272.3 cm/sec MV P1/2t: 47.1 msec Ao max PG: AI max P.6 mmHg 29.7 mmHg MVA(P1/2t): 4.7 cm2 AI dec slope: MV dec slope: 790.5 cm/sec2 136.4 cm/sec2 AI P1/2t: 585.0 msec LV V1 max PG: PA V2 max: TR max darleen: RAP systole: 2.6 mmHg 122.2 cm/sec 262.7 cm/sec 10.0 mmHg LV V1 max: PA max P.0 mmHg TR max P.8 cm/sec 27.6 mmHg RVSP(TR): 37.6 mmHg Left Ventricle The left ventricle is grossly normal size. There is mild concentric left ventricular hypertrophy. Left ventricular systolic function is borderline reduced. LV diastolic function could not be adequately assessed due to atrial fibrilation. Regional wall motion abnormalities cannot be excluded due to limited visualization. Not all wall segments were well visualized. Right Ventricle The right ventricle is mild to moderately dilated. The right ventricle appears to be hypertrophied. The right ventricular systolic function is mildly reduced. Atria The right atrium is severely dilated. The left atrium is moderately dilated. Interarterial septum not well visualized and not well dopplered. Cannot comment on ASD/PFO presence. Mitral Valve The mitral valve leaflets are sclerotic, but show no functional abnormalities. There is no mitral valve stenosis. There is a mild amount of mitral regurgitation. Aortic Valve The aortic valve opens well. There is no aortic valve stenosis. There is a mild amount of aortic regurgitation. Tricuspid Valve The tricuspid valve is not well visualized secondary to technical limitations. There is no tricuspid stenosis. There is a mild amount of tricuspid regurgitation. There is mild to moderate pulmonary hypertension by echo. Right ventricular systolic pressure is estimated to be elevated at 40-50mmHg. Pulmonic Valve The pulmonic valve is not well visualized. Great Vessels The aortic root is not well visualized. The inferior vena cava appeared normal and decreased > 50% with respiration (RAP 5-10 mmHg). Effusions There is no pericardial effusion. : MOE CLARK > Moe Clark
--- NOTE | 2016-12-25 20:30 | PDOC PROGRESS REPORT ---
Subjective Progress Note for:: 12/25/16 Subjective:: Patient seems to be doing better with gradual improvement. Pt is denying any chest arm or neck discomfort. Patient denying any PND, orthopnea. Patient denied any sustained palpitations, dizziness, syncope, near syncope. Patient denying any fever chills. Patient denying any other significant discomfort. Patient is maintaining atrial fibrillation. Patient in chronic atrial fibrillation rhythm. Review of systems: Rest review of systems negative. Medications: Medications have been reviewed. Physical Exam Vital Signs: Temp Pulse Resp BP Pulse Ox 98.0 F 105 H 18 124/62 99 12/25/16 14:04 12/25/16 14:04 12/25/16 14:04 12/25/16 14:04 12/25/16 14:04 Intake & Output 12/24/16 12/25/16 12/26/16 06:59 06:59 06:59 Intake Total 2298 Output Total 1050 500 Balance -1050 1798 Weight 81.3 kg 82.7 kg Exam: General appearance: PRESENT: no acute distress, well-developed, well-nourished Head exam: PRESENT: atraumatic, normocephalic Eye exam: PRESENT: conjunctiva pink, EOMI, PERRLA. ABSENT: scleral icterus Ear exam: PRESENT: normal external ear exam Mouth exam: PRESENT: moist, tongue midline Neck exam: ABSENT: carotid bruit, JVD, lymphadenopathy, thyromegaly Respiratory exam: PRESENT: clear to auscultation patrizia. ABSENT: rales, rhonchi, wheezes Cardiovascular exam: PRESENT: bradycardia, RRR, +S1, +S2, systolic murmur, edema 1+ Pulses: PRESENT: normal carotid pulses, normal dorsalis pedis pul Vascular exam: PRESENT: normal capillary refill GI/Abdominal exam: PRESENT: normal bowel sounds, soft. ABSENT: distended, guarding, mass, organolmegaly, rebound, tenderness Rectal exam: PRESENT: deferred Musculoskeletal exam: PRESENT: deformity, other Neurological exam: PRESENT: alert, awake, oriented to person, oriented to place , oriented to time, oriented to situation, CN II-XII grossly intact, motor sensory deficit - secondary to peripheral neuropathy Skin exam: PRESENT: dry, intact, warm. ABSENT: cyanosis, rash Results Laboratory Results: 12/24/16 07:40 12/24/16 07:40 12/25/16 04:10 Triglycerides 114 Cholesterol 176.13 LDL Cholesterol Direct 128 H VLDL Cholesterol 23.0 HDL Cholesterol 33 L EKG Comments: Atrial fibrillation with controlled ventricular response Impressions: Chest X-Ray 12/24/16 01:00 IMPRESSION: New small to moderate right pleural effusion. Mild chronic interstitial lung disease and/or mild pulmonary edema. Assessment & Plan - Diagnosis (1) Bradycardia Is this a current diagnosis for this admission?: Yes (2) Hyperlipidemia Qualifiers: Hyperlipidemia type: mixed hyperlipidemia Qualified Code(s): E78.2 - Mixed hyperlipidemia Is this a current diagnosis for this admission?: Yes (3) Coronary artery disease Qualifiers: Coronary Disease-Associated Artery/Lesion type: [place] artery Associated angina: angina presence unspecified Is this a current diagnosis for this admission?: Yes (4) Diabetes mellitus Qualifiers: Diabetes mellitus type: type 2 Diabetes mellitus complication status: with neurologic complications Diabetes mellitus complication detail: with polyneuropathy Diabetes mellitus assisted insulin use: with termite control representative use Qualified Code(s): E11.42 - Type 2 diabetes mellitus with diabetic polyneuropathy; Z79.4 - residential (current) use of insulin Is this a current diagnosis for this admission?: Yes (5) Hypertensive emergency Is this a current diagnosis for this admission?: Yes (6) Neuropathy Is this a current diagnosis for this admission?: Yes (7) SHARATH (obstructive sleep apnea) Is this a current diagnosis for this admission?: Yes (8) Atrial fibrillation, chronic Is this a current diagnosis for this admission?: Yes - Notes Notes: Bradycardia: Asymptomatic. Improved. CAD is stable Diabetes: Recommend currently being managed by publication director. Hypertensive emergency: Blood pressure is now better controlled. Neuropathy: Stable Obstructive sleep apnea: Patient advised compliance with it. Side effects of untreated sleep apnea discussed. Atrial fibrillation: Currently stable with rate control. Patient on aspirin therapy. Will discuss chronic anticoagulation with the patient as an outpatient. Patient however has history of noncompliance. 2D echo results reviewed. Other problems chronic and stable. Patient will benefit from compliance with medications, sleep apnea therapy. - Time Time with patient: Greater than 35 minutes - CODE STATUS was discussed, patient remains full code. Surrogate decision-maker unchanged. Multiple medical problems were addressed. More than 50% of the time spent coordinating care, discussing management plans with involved caregivers. Management plans discussed with involved personnels. Medical decision making was of moderate to high complexity, patient's has multiple comorbidities. Medications reviewed and adjusted accordingly: Yes
--- NOTE | 2016-12-25 21:23 | EKG REPORT ---
SEVERITY:- ABNORMAL ECG - ATRIAL FIBRILLATION NONSPECIFIC T ABNORMALITIES, LATERAL LEADS : Confirmed by: Moe Devi 25-Dec-2016 21:21:46
== END 2016-12-25 16:16 | disposition home health service (06) ==
LOC: ER 00:15 → EH 05:18 → 5 06:14 → 3N 08:17
PROVIDERS: ADMIT Internal Medicine; ATTEND Internal Medicine
DX: I16.1 Hypertensive emergency (principal); I11.0 Hypertensive heart disease with heart failure; I50.33 Acute on chronic diastolic (congestive) heart failure; R00.1 Bradycardia, unspecified; E11.42 Type 2 diabetes mellitus with diabetic polyneuropathy; I25.10 Atherosclerotic heart disease of native coronary artery without angina pectoris; G47.33 Obstructive sleep apnea (adult) (pediatric); I69.351 Hemiplegia and hemiparesis following cerebral infarction affecting right dominant side; E78.2 Mixed hyperlipidemia; I70.1 Atherosclerosis of renal artery; I48.2 Chronic atrial fibrillation; M79.89 Other specified soft tissue disorders; I25.2 Old myocardial infarction; Z79.82 Long term (current) use of aspirin; Z79.899 Other long term (current) drug therapy; Z79.4 Long term (current) use of insulin; Z95.5 Presence of coronary angioplasty implant and graft; Z98.890 Other specified postprocedural states; Z91.14 Patient's other noncompliance with medication regimen; Z95.820 Peripheral vascular angioplasty status with implants and grafts; Z87.891 Personal history of nicotine dependence; Z82.49 Family history of ischemic heart disease and other diseases of the circulatory system; Z95.818 Presence of other cardiac implants and grafts
CPT/HCPCS: 93005 ×2; 99285; 96374; 96375; 36415 ×2; 82962 ×2; 83735; 84443; 85025; 85027; 85610; 80053; 84484; 83036; 82803; 80061; 83880; 93306; 71010; 93010 ×2; 94660; G0378 ×3; J1940 ×2; J1815 ×2; J1650; J3490

== ENCOUNTER 2017-01-06 15:53 | Emergency (ER) | payer OTHER, MEDICARE ==
[2017-01-06 16:43] LABS: ABSOLUTE BASOPHILS # (AUTO) 0.1 10^3/uL (0.0-0.2); ABSOLUTE EOSINOPHILS # (AUTO) 0.3 10^3/uL (0.0-0.6); ABSOLUTE MONOCYTES (AUTO) 0.5 10^3/uL (0.1-1.4); ABSOLUTE NEUT (AUTO) 4.1 10^3/uL (1.7-8.2); BASOPHILS % (AUTO) 1.3 % (0-2); EOSINOPHILS % (AUTO) 4.3 % (0-6); HEMATOCRIT 39.4 % (37.9-51.0); HEMOGLOBIN 13.1 g/dL (13.5-17.0); HGB HCT DIFFERENCE -0.1; LYMPHOCYTES % (AUTO) 28.9 % (13-45); MEAN CORPUSCULAR HEMOGLOBIN 29.7 pg (27.0-33.4); MEAN CORPUSCULAR HGB CONC 33.3 g/dL (32.0-36.0); MEAN CORPUSCULAR VOLUME 89 fl (80-97); MONOCYTES % (AUTO) 7.4 % (3-13); RED BLOOD COUNT 4.43 10^6/uL (4.35-5.55); RED CELL DISTRIBUTION WIDTH 14.5 % (11.5-14.0); SEGMENTED NEUTROPHILS % (AUTO) 58.1 % (42-78)
[2017-01-06 16:47] LABS: ALANINE AMINOTRANSFERASE 34 U/L (21-72); ALBUMIN 3.1 g/dL (3.5-5.0); ALKALINE PHOSPHATASE 99 U/L (38-126); ANION GAP 9 (5-19); ASPARTATE AMINO TRANSFERASE 37 U/L (17-59); BILIRUBIN,DIRECT 0.3 mg/dL (0.0-0.4); BILIRUBIN,TOTAL 0.5 mg/dL (0.2-1.3); BLOOD UREA NITROGEN 20 mg/dL (7-20); CARBON DIOXIDE 27 mmol/L (22-30); CHLORIDE 100 mmol/L (98-107); CREATINE KINASE 128 U/L (55-170); CREATININE RESULT 0.94 mg/dL (0.52-1.25); GLUCOSE 284 mg/dL (75-110); POTASSIUM 4.5 mmol/L (3.6-5.0); SODIUM 136.3 mmol/L (137-145); TOTAL PROTEIN 6.3 g/dL (6.3-8.2)
--- NOTE | 2017-01-06 16:52 | RADIOLOGY REPORT (SQ) ---
EXAM DESCRIPTION: CHEST SINGLE VIEW COMPLETED DATE/TIME: 01/06/2017 4:45 pm REASON FOR STUDY: bed 16 db COMPARISON: 12/24/2016 EXAM PARAMETERS: NUMBER OF VIEWS: One view. TECHNIQUE: Single frontal radiographic view of the chest acquired. RADIATION DOSE: NA LIMITATIONS: None. FINDINGS: LUNGS AND PLEURA: There is bibasilar interstitial airspace disease. There is blunting of both costophrenic angles consistent with small effusions. MEDIASTINUM AND HILAR STRUCTURES: No masses. Contour normal. HEART AND VASCULAR STRUCTURES: The heart is enlarged with central vascular congestion. BONES: No acute findings. HARDWARE: None in the chest. OTHER: No other significant finding. IMPRESSION: Cardiomegaly and interstitial edema new from prior study. Small effusions cannot be exc luded. TECHNICAL DOCUMENTATION: JOB ID: [id number]
[2017-01-06 16:59] LABS: CREATINE KINASE MB 2.47 ng/mL (<4.55); TROPONIN I 0.021 ng/mL
[2017-01-06 17:19] LABS: APPEARANCE,URINE CLOUDY; BILIRUBIN,URINE NEGATIVE (NEGATIVE); GLUCOSE, URINE 150 mg/dL (NEGATIVE); KETONES,URINE NEGATIVE (NEGATIVE); LEUKOCYTE ESTERASE,URINE NEGATIVE (NEGATIVE); NITRITE,URINE NEGATIVE (NEGATIVE); PROTEIN,URINE >=500 mg/dL (NEGATIVE); URINE SPECIFIC GRAVITY 1.032; UROBILINOGEN,URINE NEGATIVE mg/dL (<2.0)
[2017-01-06] MEDS ORDERED: FUROSEMIDE INJ/PF 20 MG/2 ML SDV IV ONE (17:33)
--- NOTE | 2017-01-06 19:02 | ER Document Report ---
ED General - General Chief Complaint: Shortness Of Breath Stated Complaint: BREATHING PROBLEMS Time Seen by Provider: 01/06/17 16:09 TRAVEL OUTSIDE OF THE [place] IN LAST 30 DAYS: No - HPI Patient complains to provider of: Shortness of breath Notes: Patient states recent hospitalization for shortness of breath and symptomatic bradycardia. Patient states has a history of hypertension diabetes and CHF. Patient denies being on any diuretic at this time. Patient denies any trauma denies any chest pain patient states this generally feels short of breath. Review of the patient's past medical history does show significant documentation patient has been noncompliant with medication regimen and also with the patient's CPAP application. Patient states that he did wear CPAP at night prior. Denies any fevers chills nausea vomiting denies any cough or production of sputum. - Related Data Allergies/Adverse Reactions: No Known Allergies Allergy (Verified 01/06/17 16:08) Home Medications: Current Home Medications Clonidine HCl [Clonidine HCl] 1 tab PO DAILY 01/06/17 [History] Diltiazem HCl [Diltiazem ER] 240 mg PO DAILY 01/06/17 [History] Metoprolol Tartrate [Lopressor 100 mg Tablet] 200 mg PO DAILY 01/06/17 [History] Past Medical History - Social History Smoking Status: Current Every Day Smoker Frequency of alcohol use: None Drug Abuse: None Family History: CAD, Hypertension - Past Medical History Cardiac Medical History: Reports: Hx Atrial Fibrillation, Hx Coronary Artery Disease, Hx Heart Attack - "Massive" heart attack in 2010 had balloon angioplasty, no stents., Hx Hypercholesterolemia, Hx Hypertension Neurological Medical History: Reports: Hx Cerebrovascular Accident - Hemorrhagic left MCA territory infarct on 08/26/2015 Endocrine Medical History: Reports: Hx Diabetes Mellitus Type 2 Renal/ Medical History: Denies: Hx Peritoneal Dialysis Musculoskeltal Medical History: Reports Hx Gout Psychiatric Medical History: Denies: Hx Depression Past Surgical History: Reports: Hx Cardiac Catheterization - With balloon angioplasty., Hx Cardiac Surgery - watchmen device 2015, Hx Kidney (Renal Surgery) - Renal stent, Hx Vascular Surgery - Renal artery stent placement, Other - Watchman's device placed at [facility] last year - Immunizations Hx Diphtheria, Pertussis, Tetanus Vaccination: - Unknown Review of Systems - Review of Systems Constitutional: No symptoms reported EENT: No symptoms reported Cardiovascular: No symptoms reported Respiratory: Short of breath Gastrointestinal: No symptoms reported Genitourinary: No symptoms reported Male Genitourinary: No symptoms reported Musculoskeletal: No symptoms reported Skin: No symptoms reported Hematologic/Lymphatic: No symptoms reported Neurological/Psychological: No symptoms reported -: Yes All other systems reviewed and negative Physical Exam - Vital signs Vitals: Temp Pulse Resp BP Pulse Ox 97.7 F 55 L 18 119/84 95 01/06/17 16:00 01/06/17 16:00 01/06/17 16:00 01/06/17 16:00 01/06/17 16:00 Interpretation: Normal - General General appearance: Appears well, Alert - HEENT Head: Normocephalic, Atraumatic Eyes: Normal Pupils: PERRL - Respiratory Respiratory status: No respiratory distress Chest status: Nontender Breath sounds: Normal Chest palpation: Normal - Cardiovascular Rhythm: Bradycardia Heart sounds: Normal auscultation Murmur: No - Abdominal Inspection: Normal Distension: No distension Bowel sounds: Normal Tenderness: Nontender Organomegaly: No organomegaly - Back Back: Normal, Nontender - Extremities General upper extremity: Normal inspection, Nontender, Normal color, Normal ROM , Normal temperature General lower extremity: Normal inspection, Nontender, Normal color, Normal ROM , Normal temperature, Normal weight bearing. No: Lion's sign - Neurological Neuro grossly intact: Yes Cognition: Normal Orientation: AAOx4 [place] Coma Scale Eye Opening: Spontaneous Lelia Coma Scale Verbal: Oriented [place] Coma Scale Motor: Obeys Commands Lelia Coma Scale Total: 15 Speech: Normal Motor strength normal: LUE, RUE, LLE, RLE Sensory: Normal - Psychological Associated symptoms: Normal affect, Normal mood - Skin Skin Temperature: Warm Skin Moisture: Dry Skin Color: Normal Course - Re-evaluation Re-evalutation: 01/06/17 22:39 Patient does have some episodes of bradycardia however seems to be asymptomatic chest x-ray that showed signs of fluid retention. Patient was given a dose of Lasix here. Patient's oxygenation however remained normal no supplemental oxygen was given. Laboratory values not show any critical pathology. I did attempt to contact his PCP Dr. Concepcion states that he has fired the patient from his practice due to his noncompliance did not send the patient a letter and does not wish to further participate in this patient's care before hanging up the phone. However my medical opinion patient at this time is to be stable for discharge home. Patient was encouraged to continue his medications and be compliant with the CPAP machine. Patient will be given a diuretic. Patient was encouraged follow-up with his PCP as that he was recently given a letter and she still have 30 days of coverage. - Vital Signs Vital signs: Temp Pulse Resp BP Pulse Ox 97.9 F 55 L 18 136/94 H 93 01/06/17 19:01 01/06/17 16:00 01/06/17 19:01 01/06/17 19:01 01/06/17 19:01 - Laboratory Result Diagrams: 01/06/17 16:25 01/06/17 16:25 Laboratory results interpreted by me: 01/06/17 01/06/17 01/06/17 16:25 16:25 16:25 Hgb 13.1 L RDW 14.5 H Sodium 136.3 L Glucose 284 H NT-Pro-B Natriuret Pep 2190 H Albumin 3.1 L Urine Protein Urine Glucose (UA) Urine Ascorbic Acid 01/06/17 17:06 Hgb RDW Sodium Glucose NT-Pro-B Natriuret Pep Albumin Urine Protein >=500 H Urine Glucose (UA) 150 H Urine Ascorbic Acid 40 H Discharge - Discharge Clinical Impression: SHARATH (obstructive sleep apnea) CHF (congestive heart failure) Qualifiers: Congestive heart failure type: unspecified congestive heart failure type Congestive heart failure chronicity: acute Qualified Code(s): I50.9 - Heart failure, unspecified Condition: Good Disposition: HOME, SELF-CARE Instructions: Congestive Heart Failure ([facility]), Lasix Additional Instructions: Please take medication as prescribed. Return to the ER if symptoms worsen. Follow-up with your primary care physician. Prescriptions: Furosemide [Lasix 40 mg Tablet] 40 mg PO QAM #7 tablet Referrals: JHONATHAN CONCEPCION MD [Primary Care Provider] - Follow up as needed
--- NOTE | 2017-01-06 19:11 | EKG REPORT ---
SEVERITY:- ABNORMAL ECG - ATRIAL FIBRILLATION, V-RATE 47-49 ABNORMAL T, CONSIDER ISCHEMIA, ANT-LAT LEADS PROLONGED QT INTERVAL : Confirmed by: Tae Martinez MD 06-Jan-2017 19:10:26
[2017-01-06 19:12] VITALS: BP 136/94
== END 2017-01-06 19:24 | disposition home or self-care (01) ==
LOC: ER 15:53
DX: G47.33 Obstructive sleep apnea (adult) (pediatric) (principal); I50.9 Heart failure, unspecified; R06.02 Shortness of breath; E11.9 Type 2 diabetes mellitus without complications; I11.0 Hypertensive heart disease with heart failure; I48.91 Unspecified atrial fibrillation; I25.2 Old myocardial infarction; E78.00 Pure hypercholesterolemia, unspecified; Z86.73 Personal history of transient ischemic attack (TIA), and cerebral infarction without residual deficits
CPT/HCPCS: 93005; 99285; 96374; 36415; 82553; 82550; 85025; 80053; 81001; 84484; 83880; 71010; 93010; J1940

== ENCOUNTER 2017-04-01 | Inpatient (IN) | payer MEDICARE, OTHER ==
[2017-04-01 00:53] LABS: ABSOLUTE BASOPHILS # (AUTO) 0.1 10^3/uL (0.0-0.2); ABSOLUTE EOSINOPHILS # (AUTO) 0.3 10^3/uL (0.0-0.6); ABSOLUTE LYMPHOCYTES (AUTO) 2.5 10^3/uL (0.5-4.7); ABSOLUTE MONOCYTES (AUTO) 0.9 10^3/uL (0.1-1.4); ABSOLUTE NEUT (AUTO) 6.2 10^3/uL (1.7-8.2); BASOPHILS % (AUTO) 0.9 % (0-2); EOSINOPHILS % (AUTO) 3.2 % (0-6); HEMATOCRIT 39.8 % (37.9-51.0); HEMOGLOBIN 13.6 g/dL (13.5-17.0); LYMPHOCYTES % (AUTO) 24.9 % (13-45); MEAN CORPUSCULAR HEMOGLOBIN 29.7 pg (27.0-33.4); MEAN CORPUSCULAR HGB CONC 34.3 g/dL (32.0-36.0); MEAN CORPUSCULAR VOLUME 87 fl (80-97); MONOCYTES % (AUTO) 9.1 % (3-13); RED CELL DISTRIBUTION WIDTH 15.7 % (11.5-14.0); SEGMENTED NEUTROPHILS % (AUTO) 61.9 % (42-78)
[2017-04-01 01:06] LABS: ANION GAP 6 (5-19); BLOOD UREA NITROGEN 19 mg/dL (7-20); CALCIUM 8.5 mg/dL (8.4-10.2); CARBON DIOXIDE 29 mmol/L (22-30); CHLORIDE 101 mmol/L (98-107); CREATININE RESULT 0.93 mg/dL (0.52-1.25); GLUCOSE 359 mg/dL (75-110); POTASSIUM 4.2 mmol/L (3.6-5.0); SODIUM 135.9 mmol/L (137-145)
--- NOTE | 2017-04-01 01:30 | RADIOLOGY REPORT (SQ) ---
EXAM DESCRIPTION: CT HEAD WITHOUT COMPLETED DATE/TIME: 04/01/2017 1:15 am REASON FOR STUDY: speech difficulty COMPARISON: CT brain 12/14/2016, 10/01/2015. TECHNIQUE: Axial images acquired through the brain without intravenous contrast. Images reviewed wi th bone, brain and subdural windows. Images stored on PACS. All CT scanners at this facility use dose modulation, iterative reconstruction, and/or weight based d osing when appropriate to reduce radiation dose to as low as reasonably achievable (ALARA). [facility]: Dose Right [facility]: CareDose [facility]: Dose Right [facility]: Teradose 4D [facility]: MedSynergies RADIATION DOSE: mGy. LIMITATIONS: None. FINDINGS: VENTRICLES: Normal size and contour. CEREBRUM: No mass effect. No hemorrhage. No midline shift. Normal pichardo/white matter differentiatio n. No evidence for acute territorial infarction. Residual hypodensity in the left periventricular a nd insular region from prior hemorrhage, not significantly changed in the interval. CEREBELLUM: No mass effect. No hemorrhage. No alteration of density. No evidence for acute infarct ion. EXTRAAXIAL SPACES: No fluid collections. ORBITS AND GLOBE: Symmetrical contour of the globes. CALVARIUM: No depressed skull fracture. PARANASAL SINUSES: No air-fluid level. SOFT TISSUES: No hematoma. IMPRESSION: No acute intracranial hemorrhage or acute territorial infarct. EVIDENCE OF ACUTE STROKE: NO. COMMENT: Quality ID # [id number]: Final reports with documentation of one or more dose reduction techniques (e.g., Automated exposure control, adjustment of the mA and/or kV according to patient size, use of iterative reconstruction technique) TECHNICAL DOCUMENTATION: JOB ID: [id number]- All Rights Reserved
[2017-04-01] MEDS ORDERED: CEPHALEXIN 500 MG CAPSULE PO ONE (01:47)
--- NOTE | 2017-04-01 02:03 | ER Document Report ---
ED General - General Chief Complaint: Trouble Talking Stated Complaint: STROKE SYMPTOMS Time Seen by Provider: 04/01/17 00:10 Notes: Patient is a 61-year-old male with a past medical history of insulin-dependent diabetes, hypertension, hyperlipidemia, coronary artery disease, multiple prior strokes including an intracranial hemorrhage in the setting of rivaroxaban, who presents with an expressive aphasia. Patient was hospitalized in the [facility] on 12 March and received TPA at that time for similar symptoms. He states that since that time he has not had recurrence of the symptoms until tonight at approximately 830 at which time he started abruptly. His notes that the symptoms of been intermittent where it waxes from periods where he has a dense expressive aphasia, almost unable to express any language fluently ranging up to almost normal speech patterns. Patient has not had any visible tonic-clonic activity. He denies any additional symptoms. has not noted any other neurologic deficits. He has been taking all medications as directed. Nothing seems to improve or worsen his symptoms. TRAVEL OUTSIDE OF THE [place] IN LAST 30 DAYS: No - Related Data Allergies/Adverse Reactions: No Known Allergies Allergy (Verified 01/06/17 16:08) Past Medical History - General Information source: Patient - Social History Smoking Status: Never Smoker Chew tobacco use (# tins/day): No Frequency of alcohol use: Occasional Drug Abuse: None Lives with: Spouse/Significant other Family History: CAD, Hypertension Patient has suicidal ideation: No Patient has homicidal ideation: No - Past Medical History Cardiac Medical History: Reports: Hx Atrial Fibrillation, Hx Coronary Artery Disease, Hx Heart Attack - "Massive" heart attack in 2010 had balloon angioplasty, no stents., Hx Hypercholesterolemia, Hx Hypertension Neurological Medical History: Reports: Hx Cerebrovascular Accident - Hemorrhagic left MCA territory infarct on 08/26/2015 Endocrine Medical History: Reports: Hx Diabetes Mellitus Type 2 Renal/ Medical History: Denies: Hx Peritoneal Dialysis Musculoskeltal Medical History: Reports Hx Gout Psychiatric Medical History: Denies: Hx Depression Past Surgical History: Reports: Hx Cardiac Catheterization - With balloon angioplasty., Hx Cardiac Surgery - watchmen device 2015, Hx Kidney (Renal Surgery) - Renal stent, Hx Vascular Surgery - Renal artery stent placement, Other - Watchman's device placed at [facility] last year - Immunizations Hx Diphtheria, Pertussis, Tetanus Vaccination: - Unknown Review of Systems - Review of Systems Notes: Constitutional: Negative for fever. HENT: Negative for sore throat. Eyes: Negative for visual changes. Cardiovascular: Negative for chest pain. Respiratory: Negative for shortness of breath. Gastrointestinal: Negative for abdominal pain, vomiting or diarrhea. Genitourinary: Negative for dysuria. Musculoskeletal: Negative for back pain. Skin: Negative for rash. Neurological: Positive for expressive aphasia 10 point ROS negative except as marked above and in HPI. Physical Exam - Vital signs Vitals: Resp BP Pulse Ox 17 184/119 H 99 04/01/17 00:25 04/01/17 00:25 04/01/17 00:25 Interpretation: Hypertensive Notes: PHYSICAL EXAMINATION: GENERAL: Well-appearing, well-nourished and in no acute distress. HEAD: Atraumatic, normocephalic. EYES: Pupils equal round and reactive to light, extraocular movements intact, sclera anicteric, conjunctiva are normal. ENT: nares patent, oropharynx clear without exudates. Moist mucous membranes. NECK: Normal range of motion, supple without lymphadenopathy LUNGS: Breath sounds clear to auscultation bilaterally and equal. No wheezes rales or rhonchi. HEART: Regular rate and rhythm without murmurs ABDOMEN: Soft, nontender, normoactive bowel sounds. No guarding, no rebound. No masses appreciated. EXTREMITIES: Normal range of motion, no pitting or edema. No cyanosis. NEUROLOGICAL: Face symmetric. Tongue protrudes midline. Extraocular motions intact. Pupils are 2 mm and equally reactive. Word finding difficulties. No dysarthria.. 5 out of 5 strength in both the distal and proximal upper and lower extremities bilaterally. Sensation is grossly intact throughout. Finger to nose testing normal. Pronator drift normal. PSYCH: Normal mood, normal affect. SKIN: Warm, Dry, normal turgor, no rashes or lesions noted. Course - Re-evaluation Re-evalutation: 04/01/17 01:58 Patient presents with an acute onset of a expressive aphasia but unfortunately is not a TPA candidate as he did receive alteplase while in the [facility] on the ninth of this month. He also has a known history of an intracranial hemorrhage in the past while on rivaroxaban. He does not have any additional neurologic deficits on examination other than an expressive aphasia. He does have periods of where the aphasia is quite dense and he is unable to even state his name but then returns to where his speech is only notable for delay of speech. There is no appreciable dysarthria. Unfortunately, patient is already on maximal medical therapy and is ready had carotid Dopplers that did not show any lesion which could be intervened upon. He does not have any additional modifiable risk factors. I did consult with neurology at [facility] , who agrees that there is no additional acute intervention that can likely be provided to this patient. We did discuss the possibility of this being an atypical partial seizure and he has recommended starting the patient on Keppra 500 mg twice daily to see if this could resolve some of the patient's intermittent aphasia. I discussed this case with Dr. Fontanez who is agreed to admit the patient. - Vital Signs Vital signs: Temp Pulse Resp BP Pulse Ox 77 19 152/99 H 96 04/01/17 00:45 04/01/17 01:31 04/01/17 01:31 04/01/17 01:31 - Laboratory Result Diagrams: 04/01/17 00:30 04/01/17 00:30 Laboratory results interpreted by me: 04/01/17 04/01/17 00:30 00:30 RDW 15.7 H Sodium 135.9 L Glucose 359 H - Diagnostic Test Radiology reviewed: Image reviewed, Reports reviewed Radiology results interpreted by me: 04/01/17 02:01 CT head: No acute intracranial bleed - EKG Interpretation by Me Additional EKG results interpreted by me: 04/01/17 02:02 Atrial fibrillation. Rate 80. No ST elevations or depressions. QTC is 434. Discharge - Discharge Clinical Impression: Expressive aphasia Diabetes mellitus Qualifiers: Diabetes mellitus type: type 2 Diabetes mellitus complication status: with unspecified complications Diabetes mellitus usp insulin use: with usp use Qualified Code(s): E11.8 - Type 2 diabetes mellitus with unspecified complications Condition: Fair Disposition: ADMITTED OBSERVATION Admitting Provider: Jordi Fontanez Unit Admitted: Telemetry
[2017-04-01] MEDS ORDERED: ASPIRIN 81 MG TABLET, CHEWABLE PO ONE (02:04)
[2017-04-01] MEDS ORDERED: ONDANSETRON 4 MG TAB.RAPDIS PO PRN (02:05)
[2017-04-01] MEDS ORDERED: DOCUSATE SODIUM 100 MG CAPSULE PO PRN (02:05)
[2017-04-01] MEDS ORDERED: TRAMADOL HCL 50 MG TABLET PO PRN (02:05)
[2017-04-01] MEDS ORDERED: LABETALOL HCL INJ 20 MG/4 ML DISP.SYRIN IV PRN (02:05)
[2017-04-01] MEDS ORDERED: MAGNESIUM HYDROXIDE SUSP 30 ML UDCUP PO PRN (02:05)
[2017-04-01] MEDS ORDERED: ACETAMINOPHEN 325 MG TABLET PO PRN (02:05)
[2017-04-01] MEDS ORDERED: DEXTROSE 50%-WATER 25 GM/50 ML DISP.SYRIN IV PRN ×2 (02:10)
[2017-04-01] MEDS ORDERED: GLUCAGON,HUMAN RECOMB 1 MG INJ IM PRN (02:10)
[2017-04-01] MEDS ORDERED: INSULIN LISPRO 100 UNIT/ML 3 ML VIAL SUBCUT PRN (02:10)
[2017-04-01] MEDS ORDERED: DEXTROSE 40% GEL 15 GM TUBE PO PRN ×2 (02:10)
[2017-04-01] MEDS ORDERED: ATORVASTATIN CALCIUM 80 MG TABLET PO ONE (02:30)
[2017-04-01] MEDS: HEPARIN SOD (PORCINE) 5,000 UNIT/ML 1 ML SYRINGE SUBCUT SCH ×2 (06:19→15:59)
--- NOTE | 2017-04-01 07:29 | PDOC H&P ---
History of Present Illness Admission Date/PCP: 04/01/17 02:13 History of Present Illness: DANNI CROUCH is a 61 year old male with past medical history of insulin- dependent diabetes mellitus, hypertension, hyperlipidemia, CAD, multiple prior CVAs, intracranial hemorrhage in the setting of Xarelto, atrial fibrillation, and prior myocardial infarction who presents to the emergency department with intermittent expressive aphasia. Patient was apparently hospitalized in the [facility] on 12 March and received TPA at that time for very similar symptoms. Patient has been taking Plavix but not aspirin at home. Patient also reports in the past that he failed Coumadin as an outpatient having difficulty with bleeding while living in [place]. Patient reports that he has had generalized weakness for the last 2 days and the development of a rash on his hands secondary to hydralazine. Patient's is present at bedside and notes that the symptoms are intermittent and waxing and waning from periods of dense expressive aphasia to completely normal. Patient had no seizure-like activity or loss of bowel or bladder function. Patient reports currently his weakness is at baseline. Patient is not a candidate for TPA in light of the fact that he has had TPA within the last 30 days and has had a prior intracranial hemorrhage. He is referred to hospital service for TIA like symptoms. Past Medical History Cardiac Medical History: Reports: Atrial Fibrillation, Coronary Artery Disease, Myocardial Infarction - "Massive" heart attack in 2010 had balloon angioplasty, no stents., Hyperlipidema, Hypertension Neurological Medical History: Reports: Ischemic CVA, Other - Intracranial hemorrhage Endocrine Medical History: Reports: Diabetes Mellitus Type 2 Musculoskeltal Medical History: Reports: Gout Psychiatric Medical History: Denies: Depression Hematology: Reports: Bleeding Tendencies Past Surgical History Past Surgical History: Reports: Cardiac Catheterization - With balloon angioplasty., Vascular Surgery - Renal artery stent placement, Other - Watchman' s device placed at [facility] last year Social History Lives with: Spouse/Significant other Smoking Status: Current Every Day Smoker Last Time Smoked: Patient currently uses e-cigarette constantly, and prior heavy smoker Frequency of Alcohol Use: Occasional Hx Recreational Drug Use: No Drugs: None Hx Prescription Drug Abuse: No - Advance Directive Resuscitation Status: Full Code Surrogate healthcare decision maker:: Tea Crouch Family History Family History: CAD, Hypertension, Other - Father had rheumatic heart disease Parental Family History Reviewed: Yes Children Family History Reviewed: Yes Sibling(s) Family History Reviewed.: Yes Medication/Allergy Home Medications: Magnesium Oxide 400 mg PO DAILY 12/24/16 Clonidine HCl [Clonidine HCl] 1 tab PO DAILY 01/06/17 Diltiazem HCl [Diltiazem ER] 240 mg PO DAILY 01/06/17 Furosemide [Lasix 40 mg Tablet] 40 mg PO QAM #7 tablet 01/06/17 Metoprolol Tartrate [Lopressor 100 mg Tablet] 200 mg PO DAILY 01/06/17 Allergies/Adverse Reactions: No Known Allergies Allergy (Verified 01/06/17 16:08) Review of Systems Constitutional: PRESENT: fatigue, weakness. ABSENT: chills, fever(s), headache( s), weight gain, weight loss Eyes: ABSENT: visual disturbances Ears: ABSENT: hearing changes Cardiovascular: ABSENT: chest pain, dyspnea on exertion, edema, orthropnea, palpitations Respiratory: ABSENT: cough, dyspnea, hemoptysis, sputum Gastrointestinal: PRESENT: nausea. ABSENT: abdominal pain, constipation, diarrhea, hematemesis, hematochezia, melena, vomiting Genitourinary: ABSENT: dysuria, hematuria Musculoskeletal: ABSENT: joint swelling Integumentary: PRESENT: rash. ABSENT: wounds Neurological: PRESENT: as per HPI, abnormal speech, weakness. ABSENT: abnormal gait, confusion, dizziness, focal weakness, syncope Psychiatric: ABSENT: anxiety, depression, homidical ideation, suicidal ideation Endocrine: ABSENT: cold intolerance, heat intolerance, polydipsia, polyuria Hematologic/Lymphatic: ABSENT: easy bleeding, easy bruising Physical Exam Vital Signs: Temp Pulse Resp BP Pulse Ox 65 17 150/99 H 94 04/01/17 03:00 04/01/17 05:31 04/01/17 05:31 04/01/17 05:31 General appearance: PRESENT: no acute distress, well-developed, well-nourished Head exam: PRESENT: atraumatic, normocephalic Eye exam: PRESENT: conjunctiva pink, EOMI, PERRLA. ABSENT: conjunctival injection, scleral icterus Ear exam: PRESENT: normal external ear exam Mouth exam: PRESENT: moist, tongue midline Neck exam: ABSENT: carotid bruit, JVD, lymphadenopathy, thyromegaly, tracheal deviation Respiratory exam: PRESENT: clear to auscultation patrizia, symmetrical, unlabored. ABSENT: rales, rhonchi, tachypnea, wheezes Cardiovascular exam: PRESENT: irregular rhythm, +S1, +S2, systolic murmur. ABSENT: diastolic murmur, gallop, rubs Pulses: PRESENT: normal dorsalis pedis pul Vascular exam: PRESENT: normal capillary refill GI/Abdominal exam: PRESENT: normal bowel sounds, soft. ABSENT: distended, firm , guarding, mass, Jean-Baptiste's sign, organolmegaly, rebound, tenderness Rectal exam: PRESENT: deferred Extremities exam: PRESENT: full ROM. ABSENT: calf tenderness, clubbing, pedal edema Neurological exam: PRESENT: alert, awake, oriented to person, oriented to place , oriented to time, oriented to situation, CN II-XII grossly intact, motor sensory deficit - strength 4-/5 BUE, BLE, but equal Psychiatric exam: PRESENT: appropriate affect, normal mood. ABSENT: homicidal ideation, suicidal ideation Skin exam: PRESENT: dry, intact, rash - linear erythematous rash on bilateral hands, warm. ABSENT: cyanosis Results Laboratory Results: 01/06/17 04/01/17 04/01/17 17:06 00:30 00:30 WBC 10.0 Hgb 13.6 Plt Count 211 BUN 19 Creatinine 0.93 Glucose 359 H Troponin I Ur Specific [place] 1.032 Urine WBC (Auto) 3 04/01/17 00:30 WBC Hgb Plt Count BUN Creatinine Glucose Troponin I 0.016 Ur Specific [place] Urine WBC (Auto) Impressions: Head CT 04/01/17 00:11 IMPRESSION: No acute intracranial hemorrhage or acute territorial infarct. EVIDENCE OF ACUTE STROKE: NO. 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 Qualified Code(s): E11.8 - Type 2 diabetes mellitus with unspecified complications; Z79.4 - halfway (current) use of insulin; Z79.4 - 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 Patient reports prior ICH with Xarelto and bleeding issues with Coumadin. Patient is currently on Plavix and we will add 81 mg of aspirin to this. Patient is currently rate controlled. (4) CHF (congestive heart failure) Qualifiers: Congestive heart failure type: systolic Congestive heart failure chronicity : chronic Qualified Code(s): I50.22 - Chronic systolic (congestive) heart failure Is this a current diagnosis for this admission?: Yes Plan: Patient has chronic likely systolic congestive heart failure. Currently euvolemic (5) Coronary artery disease Qualifiers: Coronary Disease-Associated Artery/Lesion type: [place] artery Associated angina: angina presence unspecified Is this a current diagnosis for this admission?: Yes (6) Hyperlipidemia Qualifiers: Hyperlipidemia type: mixed hyperlipidemia Qualified Code(s): E78.2 - Mixed hyperlipidemia Is this a current diagnosis for this admission?: Yes Plan: Check FLP and continue statin (7) Neuropathy Is this a current diagnosis for this admission?: Yes (8) Noncompliance Is this a current diagnosis for this admission?: Yes Plan: Patient is noncompliant with diet according to family. (9) Seizure disorder Is this a current diagnosis for this admission?: Yes Plan: Placed on Keppra 500 mg p.o. twice daily (10) Drug reaction Qualifiers: Encounter type: subsequent encounter Qualified Code(s): T88.7XXD - Unspecified adverse effect of drug or medicament, subsequent encounter Is this a current diagnosis for this admission?: Yes Plan: Patient reports rash on hands and lower extremities secondary to hydralazine. We will continue to monitor. Consider steroid; however, at this time I am reluctant to start when given patient's poorly controlled diabetes mellitus. - Time Time Spent: 50 to 70 Minutes Medications reviewed and adjusted accordingly: Yes Anticipated discharge: Home with Homehealth - Inpatient Certification Based on my medical assessment, after consideration of the patient's comorbidities, presenting symptoms, or acuity I expect that the services needed warrant INPATIENT care.: Yes I certify that my determination is in accordance with my understanding of Medicare's requirements for reasonable and necessary INPATIENT services [42 CFR 412.3e].: Yes Medical Necessity: Need For Continuous Telemetry Monitoring, Need for Neurological Checks Post Hospital Care: 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
--- NOTE | 2017-04-01 08:11 | EKG REPORT ---
SEVERITY:- ABNORMAL ECG - ATRIAL FIBRILLATION, V-RATE 64-91 ABNORMAL T, CONSIDER ISCHEMIA, LATERAL LEADS : Confirmed by: Tae Martinez MD 01-Apr-2017 08:11:20
--- NOTE | 2017-04-01 08:35 | RADIOLOGY REPORT (SQ) ---
EXAM DESCRIPTION: MRI HEAD WITHOUT COMPLETED DATE/TIME: 04/01/2017 8:06 am REASON FOR STUDY: ? acute cva COMPARISON: CT dated 04/01/2017 and 08/26/2015. TECHNIQUE: Multiplanar imaging includes non-contrasted T1, T2, FLAIR, and diffusion with ADC map seq uences. Images stored on PACS. LIMITATIONS: None. FINDINGS: ANATOMY: No anomalies. Normal vascular flow voids. Pituitary fossa normal. CSF SPACES: Atrophy induced prominence of ventricles and CSF spaces. CEREBRUM: High signal intensity lesions scattered throughout the white matter on FLAIR imaging with d istribution suggesting micro-vascular ischemic changes. Focal area of decreased signal in the physical metallurgist ior left external capsule consistent with old blood products from previous hemorrhage. No evidence o f hemorrhage, mass, or extraaxial fluid collection. POSTERIOR FOSSA: No signal alteration. No hemorrhage. No edema, masses or mass effect. Internal gonzalez tory canals, cerebello-pontine angles, mastoids normal. DIFFUSION IMAGING: Negative for acute or sub-acute infarction. ORBITS: No masses. Globes normal. PARANASAL SINUSES: No fluid levels. Mucosa normal. OTHER: No other significant finding. IMPRESSION: ATROPHY AND CHRONIC MICRO-VASCULAR ISCHEMIC CHANGES. RESIDUAL OLD BLOOD PRODUCTS IN THE POSTERIOR LEFT EXTERNAL CAPSULE FROM PREVIOUS HEMORRHAGE. NO ACUTE FINDINGS. EVIDENCE OF ACUTE STROKE: NO. TECHNICAL DOCUMENTATION: JOB ID: [id number] [employer]- All Rights Reserved
--- NOTE | 2017-04-01 08:38 | RADIOLOGY REPORT (SQ) ---
EXAM DESCRIPTION: MRA HEAD WITHOUT COMPLETED DATE/TIME: 04/01/2017 8:06 am REASON FOR STUDY: hx of multiple cva, ich, ?structural defect COMPARISON: None. TECHNIQUE: Axial 3-D [id number] acquisition imaging performed through the brain in the area of t he [place] of [place]. Images reformatted using 3-D MIPS. LIMITATIONS: None. FINDINGS: SOURCE IMAGES: No unexpected findings on source images. No large masses. 3-D MIP: No aneurysm. No occlusions. No significant stenosis. OTHER: No other significant finding. IMPRESSION: NORMAL MRA OF THE [place]. TECHNICAL DOCUMENTATION: JOB ID: [id number] [employer]- All Rights Reserved
--- NOTE | 2017-04-01 08:40 | RADIOLOGY REPORT (SQ) ---
EXAM DESCRIPTION: MRA NECK WITHOUT COMPLETED DATE/TIME: 04/01/2017 8:06 am REASON FOR STUDY: hx of multiple cva, ich, ?structural defect COMPARISON: None. TECHNIQUE: Axial 2-D volume acquisition imaging through the extracranial carotid and vertebral arter ies with reformatting using 3-D MIPS. LIMITATIONS: None. FINDINGS: RIGHT CAROTID ARTERY: No stenosis or occlusive changes. Limited visualization of the orig in. LEFT CAROTID ARTERY: No stenosis or occlusive changes. Limited visualization of the origin. VERTEBRAL ARTERY: The extracranial portions of the vertebral basilar system are preserved without misti nosis. No aneurysmal dilatation or dissection is seen. OTHER: No other significant finding. IMPRESSION: NO SIGNIFICANT STENOSIS. COMMENT: Quality ID #[id number]: Measurements of distal internal carotid diameter were used as the denomin ator for stenosis measurement. TECHNICAL DOCUMENTATION: JOB ID: [id number] [employer]- All Rights Reserved
[2017-04-01] MEDS ORDERED: ASPIRIN 325 MG TABLET, ENT COATED PO SCH (10:00)
[2017-04-01] MEDS ORDERED: CLOPIDOGREL BISULFATE 75 MG TABLET PO SCH (10:00)
[2017-04-01] MEDS ORDERED: LEVETIRACETAM 500 MG TABLET PO SCH (10:00)
[2017-04-01] MEDS ORDERED: INFLUENZA ADLT QUAD (36MOS+) 2017-18 VAC 0.5 ML SYR IM PRN (12:37)
[2017-04-01 19:16] VITALS: BP 156/103
--- NOTE | 2017-04-01 19:47 | PDOC DISCHARGE SUMMARY ---
General - Admit/Disc Date/PCP Admission Date/Primary Care Provider: 04/01/17 02:13 Discharge Date: 04/01/17 - Discharge Diagnosis (1) Atrial fibrillation, chronic Is this a current diagnosis for this admission?: Yes Summary: Anticoagulation is contraindicated secondary to recent use of TPA and history of cerebral hemorrhage on Coumadin. (2) Seizure disorder Is this a current diagnosis for this admission?: Yes Summary: Patient was started on Keppra. Follow-up with outpatient neurologist. (3) Severe hypertension Summary: Continue antihypertensives. (4) CVA (cerebral vascular accident) Is this a current diagnosis for this admission?: Yes Summary: Patient has a history of multiple CVAs in the past including one cerebral hemorrhage. Recently had TPA and has failed outpatient anticoagulation. Continue aspirin and Plavix. Establish care with an outpatient neurologist. The patient prefers to go to [place]. (5) Diabetes mellitus Is this a current diagnosis for this admission?: Yes Summary: Continue home regimen. (6) Drug reaction Is this a current diagnosis for this admission?: Yes Summary: Patient felt that he developed a rash on his hands from the hydralazine. He was continued on this medication without further incident. (7) Expressive aphasia Is this a current diagnosis for this admission?: Yes Summary: Resolved. Patient likely suffered from TIA. MRI negative. (8) CHF (congestive heart failure) Is this a current diagnosis for this admission?: Yes Summary: Continue beta blockade and Lasix. (9) Coronary artery disease Is this a current diagnosis for this admission?: Yes Summary: Continue beta-alexei. Patient is currently not on an RAPHAEL. Continue Lasix. (10) Hyperlipidemia Is this a current diagnosis for this admission?: Yes Summary: Continue atorvastatin. - Additional Information Resuscitation Status: Full Code Discharge Diet: Cardiac, Diabetic Discharge Activity: Activity As Tolerated, Balance Activity w/Rest Home Medications: Aspirin [Ecotrin 325 mg EC Tablet] 325 mg PO DAILY tabec 04/01/17 Atorvastatin Calcium [Lipitor 80 mg Tablet] 80 mg PO QHS tablet 04/01/17 Atorvastatin Calcium [Lipitor 80 mg Tablet] 80 mg PO QHS #30 tablet 04/01/17 Clonidine HCl [Catapres 0.1 mg Tablet] 0.1 mg PO Q8 04/01/17 Clopidogrel Bisulfate [Plavix 75 mg Tablet] 75 mg PO DAILY 04/01/17 Diltiazem HCl [Cardizem Cd 240 mg Capsule.cr] 240 mg PO DAILY #30 capsule.cr Diltiazem HCl [Diltiazem 24Hr ER] 240 mg PO DAILY 04/01/17 Furosemide [Lasix 40 mg Tablet] 40 mg PO QAM 04/01/17 Hydralazine HCl [Apresoline 25 mg Tablet] 25 mg PO Q8 04/01/17 Insulin Glargine,Hum.rec.anlog [Lantus Solostar] 25 units SQ QHS 04/01/17 Levetiracetam [Keppra 500 mg Tablet] 500 mg PO Q12 #60 tablet 04/01/17 Metoprolol Succinate [Toprol XL 200 mg Tablet] 200 mg PO DAILY 04/01/17 History of Present Illness History of Present Illness: DANNI CROUCH is a 61 year old Malaysian male with a past medical history of CVA presented with symptoms concerning for TIA. Please see the admission H&P as outlined below per the admitting physician. Admission Date/PCP: 04/01/17 02:13 History of Present Illness: DANNI CROUCH is a 61 year old male with past medical history of insulin- dependent diabetes mellitus, hypertension, hyperlipidemia, CAD, multiple prior CVAs, intracranial hemorrhage in the setting of Xarelto, atrial fibrillation, and prior myocardial infarction who presents to the emergency department with intermittent expressive aphasia. Patient was apparently hospitalized in the [facility] on 12 March and received TPA at that time for very similar symptoms. Patient has been taking Plavix but not aspirin at home. Patient also reports in the past that he failed Coumadin as an outpatient having difficulty with bleeding while living in [place]. Patient reports that he has had generalized weakness for the last 2 days and the development of a rash on his hands secondary to hydralazine. Patient's is present at bedside and notes that the symptoms are intermittent and waxing and waning from periods of dense expressive aphasia to completely normal. Patient had no seizure-like activity or loss of bowel or bladder function. Patient reports currently his weakness is at baseline. Patient is not a candidate for TPA in light of the fact that he has had TPA within the last 30 days and has had a prior intracranial hemorrhage. He is referred to hospital service for TIA like symptoms. Hospital Course Hospital Course: Patient was admitted to observation status. The patient wanted to go home. He was initially upset that he had not been seen since 5:00 this morning. He did have MRIs which were negative for acute stroke. Did show old resolving hemorrhage. All symptoms resolved. The patient was continued on aspirin and Plavix. Full anticoagulation is contraindicated given that he recently had TPA and a history of cerebral hemorrhage. He was started on Keppra. He will need to follow-up as an outpatient with neurology. At this point I think it is safe for the patient to be discharged. I would like for him to also follow-up with his primary care physician. His blood pressure was controlled here with the use of metoprolol, hydralazine, and Cardizem. Prescriptions were given for refill of his Cardizem, atorvastatin and Keppra. Physical Exam Vital Signs: Temp Pulse Resp BP Pulse Ox 97.8 F 98 18 161/111 H 98 04/01/17 15:34 04/01/17 16:00 04/01/17 16:00 04/01/17 16:00 04/01/17 16:00 GENERAL: Well-developed and nourished appearing Malaysian male resting on the side of his bed currently in no acute distress. HEART: Irregular rate and rhythm. No murmurs rubs or gallops. LUNGS: [Clear to auscultation bilaterally with equal rise and fall of the chest. ] ABDOMEN: [Soft, nontender, nondistended with normoactive bowel sounds] EXTREMETIES: [No clubbing, cyanosis or edema. 2+ peripheral pulses bilaterally. ] NEURO: [Awake, alert and oriented 3. Contraction of the left arm with residual weakness on that side. Results Laboratory Results: 04/01/17 04/01/17 06:10 13:01 Troponin I 0.018 < 0.012 Impressions: Head MRI 04/01/17 00:00 IMPRESSION: ATROPHY AND CHRONIC MICRO-VASCULAR ISCHEMIC CHANGES. RESIDUAL OLD BLOOD PRODUCTS IN THE POSTERIOR LEFT EXTERNAL CAPSULE FROM PREVIOUS HEMORRHAGE. NO ACUTE FINDINGS. EVIDENCE OF ACUTE STROKE: NO. Head CT 04/01/17 00:11 IMPRESSION: No acute intracranial hemorrhage or acute territorial infarct. EVIDENCE OF ACUTE STROKE: NO. Brain MRI with MRA 04/01/17 02:07 IMPRESSION: NORMAL MRA OF THE [place]. Neck MRA 04/01/17 02:08 IMPRESSION: NO SIGNIFICANT STENOSIS. Qualifiers PATEINT BEING DISCHARGED WITH ANY OF THE FOLLOWING DIAGNOSIS?: No Plan Time Spent: Greater than 30 Minutes
[2017-04-01] MEDS ORDERED: INSULIN GLARGINE,HUM.REC.ANLOG 300 UNIT/3 ML INSULN.PEN SUBCUT SCH ×2 (22:00)
[2017-04-01] MEDS ORDERED: CLONIDINE HCL 0.1 MG TABLET PO SCH (22:00)
[2017-04-01] MEDS ORDERED: ATORVASTATIN CALCIUM 80 MG TABLET PO SCH (22:00)
[2017-04-01] MEDS ORDERED: HYDRALAZINE HCL 25 MG TABLET PO SCH (22:00)
[2017-04-02] MEDS ORDERED: FUROSEMIDE 40 MG TABLET PO SCH (08:00)
[2017-04-02] MEDS ORDERED: DILTIAZEM HCL 240 MG CAPSULE.CR PO SCH (10:00)
[2017-04-02] MEDS ORDERED: (PENDING PHARMACY ID) (Metoprolol Succinate [Toprol Xl 200 Mg Tablet] 200 MG) PO SCH (10:00)
[2017-04-02] MEDS ORDERED: METOPROLOL SUCCINATE 50 MG TAB.SR.24H PO SCH (10:00)
[2017-04-02] MEDS ORDERED: (PENDING PHARMACY ID) (Diltiazem Hcl [Diltiazem 24hr Er] 240 MG) PO SCH (10:00)
== END 2017-04-01 19:30 | disposition left against medical advice (07) | DRG 69 ==
LOC: ER → EH 02:13 → OBSVTOIN 02:13 → 3S 11:55
PROVIDERS: ADMIT Family Medicine; ATTEND Family Medicine
DX: G45.9 Transient cerebral ischemic attack, unspecified (principal); R47.01 Aphasia; I50.22 Chronic systolic (congestive) heart failure; I48.2 Chronic atrial fibrillation; G40.909 Epilepsy, unspecified, not intractable, without status epilepticus; L27.0 Generalized skin eruption due to drugs and medicaments taken internally; T46.5X5A Adverse effect of other antihypertensive drugs, initial encounter; I25.10 Atherosclerotic heart disease of native coronary artery without angina pectoris; E78.2 Mixed hyperlipidemia; I11.0 Hypertensive heart disease with heart failure; M10.9 Gout, unspecified; F17.210 Nicotine dependence, cigarettes, uncomplicated; E11.40 Type 2 diabetes mellitus with diabetic neuropathy, unspecified; I25.2 Old myocardial infarction; Z79.4 Long term (current) use of insulin; Z79.899 Other long term (current) drug therapy; Z88.6 Allergy status to analgesic agent; Z79.01 Long term (current) use of anticoagulants; Z82.49 Family history of ischemic heart disease and other diseases of the circulatory system; Z91.11 Patient's noncompliance with dietary regimen
CPT/HCPCS: 36415; 70450; 70544; 70547; 70551; 80048; 82962; 84484; 85025; 93005; 93010; 96374; 99285; G8978-GP; G8979-GP; G8987-GO; G8988-GO; G8999-GN; G9158-GN; G9186-GN; J1644; J1815; J3490

== ENCOUNTER 2017-04-11 14:10 | Emergency (ER) | payer OTHER, MEDICARE ==
[2017-04-11] MEDS ORDERED: METHYLPREDNISOLONE INJ 125 MG/2 ML SDV IV ONE (14:32)
[2017-04-11] MEDS ORDERED: FAMOTIDINE INJ/PF 20 MG/2 ML SDV IV ONE (14:32)
[2017-04-11] MEDS ORDERED: DIPHENHYDRAMINE HCL 50 MG/ML VIAL IV ONE (14:32)
[2017-04-11] MEDS ORDERED: NITROGLYCERIN 2% OINTMENT 1 GM PACKET TP ONE (14:32)
--- NOTE | 2017-04-11 14:35 | ER Document Report ---
ED Medical Screen (RME) - General Chief Complaint: Allergic Reaction Stated Complaint: POSSIBLE ALLERGIC REACTION Time Seen by Provider: 04/11/17 14:32 Mode of Arrival: Ambulatory Information source: Patient TRAVEL OUTSIDE OF THE [place] IN LAST 30 DAYS: No - HPI Patient complains to provider of: allergic rxn Onset: Other - pt. states he was started on lisinopril approx 1 wk ago after d/ c from [facility] but has been "having a reaction to it" since it was started with rash , pruritis and blurry vision - Related Data Allergies/Adverse Reactions: lisinopril Allergy (Verified 04/11/17 14:19) Past Medical History - Social History Chew tobacco use (# tins/day): No Frequency of alcohol use: None Drug Abuse: None Renal/ Medical History: Denies: Hx Peritoneal Dialysis Physical Exam - Vital signs Vitals: Temp Pulse Resp BP Pulse Ox 98.9 F 89 18 155/130 H 98 04/11/17 14:23 04/11/17 14:23 04/11/17 14:23 04/11/17 14:23 04/11/17 14:23 Course - Vital Signs Vital signs: Temp Pulse Resp BP Pulse Ox 98.9 F 89 18 155/130 H 98 04/11/17 14:23 04/11/17 14:23 04/11/17 14:23 04/11/17 14:23 04/11/17 14:23
[2017-04-11 15:10] LABS: ABSOLUTE BASOPHILS # (AUTO) 0.1 10^3/uL (0.0-0.2); ABSOLUTE EOSINOPHILS # (AUTO) 0.3 10^3/uL (0.0-0.6); ABSOLUTE LYMPHOCYTES (AUTO) 2.3 10^3/uL (0.5-4.7); ABSOLUTE MONOCYTES (AUTO) 0.7 10^3/uL (0.1-1.4); ABSOLUTE NEUT (AUTO) 4.9 10^3/uL (1.7-8.2); BASOPHILS % (AUTO) 1.1 % (0-2); EOSINOPHILS % (AUTO) 3.7 % (0-6); HEMOGLOBIN 15.9 g/dL (13.5-17.0); HGB HCT DIFFERENCE 1.7; MEAN CORPUSCULAR HEMOGLOBIN 29.8 pg (27.0-33.4); MEAN CORPUSCULAR HGB CONC 34.5 g/dL (32.0-36.0); MEAN CORPUSCULAR VOLUME 86 fl (80-97); MONOCYTES % (AUTO) 8.2 % (3-13); RED BLOOD COUNT 5.34 10^6/uL (4.35-5.55); RED CELL DISTRIBUTION WIDTH 15.9 % (11.5-14.0); WHITE BLOOD COUNT 8.4 10^3/uL (4.0-10.5)
--- NOTE | 2017-04-11 15:20 | ER Document Report ---
ED Allergic Reaction - General Mode of Arrival: Ambulatory Information source: Patient, [facility] Records TRAVEL OUTSIDE OF THE [place] IN LAST 30 DAYS: No <MICKY BENTON - Last Filed: 04/11/17 17:11> <BIJAL RAY - Last Filed: 04/11/17 19:59> - General Chief Complaint: Allergic Reaction Stated Complaint: POSSIBLE ALLERGIC REACTION Time Seen by Provider: 04/11/17 14:32 Notes: Patient is a 61 year old male that presents to the emergency department today with complaints of a possible allergic reaction to lisinopril. Patient states that he was seen at this facility around midnight on for a TIA and he had a rash similar to what he has currently prior to this visit. Patient states that he has had an allergic reaction to hydralazine in the past which caused a similar reaction to the rash he has today. Patient states he was given some sort of steroid ointment for the reaction which he used today with minimal relief. He is unable to remember what the name of the medication was. (MICKY BENTON) - Related Data Allergies/Adverse Reactions: lisinopril Allergy (Verified 04/11/17 14:19) Home Medications: Current Home Medications Clonidine HCl [Catapres 0.1 mg Tablet] 1 tab PO TID 04/11/17 [History] Clopidogrel Bisulfate [Plavix 75 mg Tablet] 1 tab PO DAILY 04/11/17 [History] Diltiazem HCl [Cardizem Cd 240 mg Capsule.cr] 1 tab PO DAILY 04/11/17 [History] Insulin Glargine,Hum.rec.anlog [Lantus] 25 units SUBCUT QHS 04/11/17 [History] Metoprolol Succinate 200 mg PO DAILY 04/11/17 [History] Past Medical History - General Information source: Patient - Social History Smoking Status: Current Some Day Smoker Cigarette use (# per day): Yes Chew tobacco use (# tins/day): No Frequency of alcohol use: None Drug Abuse: None Lives with: Family Family History: Reviewed & Not Pertinent Patient has suicidal ideation: No Patient has homicidal ideation: No - Past Medical History Cardiac Medical History: Reports: Hx Atrial Fibrillation, Hx Congestive Heart Failure, Hx Coronary Artery Disease, Hx Heart Attack, Hx Hypercholesterolemia, Hx Hypertension, Hx Peripheral Vascular Disease - renal artery stenosis Neurological Medical History: Reports: Hx Seizures - Keppra Endocrine Medical History: Reports: Hx Diabetes Mellitus Type 2 - IDDM Past Surgical History: Reports: Other - Angioplasty 2010 <MICKY BENTON - Last Filed: 04/11/17 17:11> <BIJAL RAY - Last Filed: 04/11/17 19:59> - Medical History Notes: 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 (MICKY BENTON) Review of Systems - Review of Systems Constitutional: No symptoms reported EENT: No symptoms reported Cardiovascular: No symptoms reported Respiratory: No symptoms reported Gastrointestinal: No symptoms reported Genitourinary: No symptoms reported Male Genitourinary: No symptoms reported Musculoskeletal: No symptoms reported Skin: See HPI, Other - itching, "blotches" on neck and wrists Hematologic/Lymphatic: No symptoms reported Neurological/Psychological: No symptoms reported -: Yes All other systems reviewed and negative <MICKY BENTON - Last Filed: 04/11/17 17:11> Physical Exam - Vital signs Interpretation: Normal - General General appearance: Appears well, Alert - HEENT Head: Normocephalic, Atraumatic Eyes: Normal Pupils: PERRL - Respiratory Respiratory status: No respiratory distress Chest status: Nontender Breath sounds: Normal Chest palpation: Normal - Cardiovascular Rhythm: Regular Heart sounds: Normal auscultation Murmur: No - Abdominal Inspection: Normal Distension: No distension Bowel sounds: Normal Tenderness: Nontender Organomegaly: No organomegaly - Back Back: Normal, Nontender - Extremities General upper extremity: Normal inspection, Normal ROM. No: Edema General lower extremity: Normal inspection, Normal ROM. No: Edema - Neurological Neuro grossly intact: Yes Cognition: Normal Orientation: AAOx4 [place] Coma Scale Eye Opening: Spontaneous [place] Coma Scale Verbal: Oriented [place] Coma Scale Motor: Obeys Commands [place] Coma Scale Total: 15 Speech: Normal - Psychological Associated symptoms: Normal affect, Normal mood - Skin Skin Temperature: Warm Skin Moisture: Dry Skin Color: Normal <MICKY BENTON - Last Filed: 04/11/17 17:11> <BIJAL RAY - Last Filed: 04/11/17 19:59> - Vital signs Vitals: Temp Pulse Resp BP Pulse Ox 98.9 F 89 18 155/130 H 98 04/11/17 14:23 04/11/17 14:23 04/11/17 14:23 04/11/17 14:23 04/11/17 14:23 - Extremities Notes: Bilateral radial nerve palsy, 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 (MICKY BENTON) Course - Laboratory Result Diagrams: 04/11/17 14:50 04/11/17 14:50 <MICKY BENTON - Last Filed: 04/11/17 17:11> - Laboratory Result Diagrams: 04/11/17 14:50 04/11/17 14:50 <BIJAL RAY - Last Filed: 04/11/17 19:59> - Vital Signs Vital signs: Temp Pulse Resp BP Pulse Ox 98.9 F 89 17 159/117 H 96 04/11/17 14:23 04/11/17 14:23 04/11/17 19:01 04/11/17 19:01 04/11/17 19:01 - Laboratory Laboratory results interpreted by me: 04/11/17 04/11/17 14:50 14:50 RDW 15.9 H Glucose 283 H Discharge <MICKY BENTON - Last Filed: 04/11/17 17:11> <BIJAL RAY - Last Filed: 04/11/17 19:59> - Discharge Clinical Impression: Rash, Poorly-controlled hypertension, Has run out of medications Condition: Stable Disposition: HOME, SELF-CARE Additional Instructions: The rash you have now is not likely related to hydralazine, as you have not taking any of that medication and at least 6 weeks by your history tonight. I suspect your rash is more likely to be some sort of eczema or contact dermatitis. Take the prednisone as prescribed. Drink plenty of water, as the steroids will make your sugars go higher. Use the steroid cream Dr. Peñaloza prescribed you in February on the dry, thickened , reddish rash. 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 Be sure to check your sugars before meals and follow the sliding scale instructions that should come with that insulin. Be sure to take your Lantus medication this evening. Be sure not to miss any of your blood pressure medications. Call your primary care provider on Thursday morning to request an appointment in the next 1-2 days. You need to have your medications sorted out, probably adjusted, and need to be sure that the medications that did not transmit electronically after your recent discharge from the hospital are received by the pharmacy. RETURN TO THE EMERGENCY ROOM IF ANY NEW OR WORSENING SYMPTOMS. Prescriptions: Prednisone [Deltasone 10 mg Tablet] 10 mg PO ASDIR PRN #15 tablet PRN Reason: Scribe Attestation: 04/11/17 19:57 I personally performed the services described in the documentation, reviewed and edited the documentation which was dictated to the scribe in my presence, and it accurately records my words and actions. (BIJAL RAY) Scribe Documentation - Scribe Written by Crispin:: Crispin Martinez, 04/11/2017, [id number] acting as scribe for :: Diamond <MICKY BENTON - Last Filed: 04/11/17 17:11>
[2017-04-11 15:23] LABS: ALANINE AMINOTRANSFERASE 35 U/L (21-72); ALBUMIN 3.6 g/dL (3.5-5.0); ALKALINE PHOSPHATASE 121 U/L (38-126); ANION GAP 14 (5-19); ASPARTATE AMINO TRANSFERASE 35 U/L (17-59); BILIRUBIN,DIRECT 0.3 mg/dL (0.0-0.4); BILIRUBIN,TOTAL 0.4 mg/dL (0.2-1.3); BLOOD UREA NITROGEN 16 mg/dL (7-20); CALCIUM 8.9 mg/dL (8.4-10.2); CARBON DIOXIDE 25 mmol/L (22-30); CHLORIDE 103 mmol/L (98-107); GLUCOSE 283 mg/dL (75-110); SODIUM 141.9 mmol/L (137-145); TOTAL PROTEIN 7.3 g/dL (6.3-8.2)
[2017-04-11] MEDS ORDERED: METOPROLOL TARTRATE PF/INJ 5 MG/5 ML SDV IV ONE ×2 (15:47→16:26)
[2017-04-11] MEDS ORDERED: CLONIDINE HCL 0.1 MG TABLET PO ONE ×2 (16:26→18:05)
[2017-04-11 19:11] VITALS: BP 159/117
[2017-04-11] MEDS ORDERED: PREDNISONE 20 MG TABLET PO ONE (19:51)
[2017-04-11] MEDS ORDERED: INSULIN REG, HUMAN 100 UNIT/ML 3 ML VIAL (PYX) SUBCUT ONE (19:52)
== END 2017-04-11 20:48 | disposition home or self-care (01) ==
LOC: MERGE 14:10 → ER 14:10
DX: R21 Rash and other nonspecific skin eruption (principal); I10 Essential (primary) hypertension; G56.33 Lesion of radial nerve, bilateral upper limbs; I25.10 Atherosclerotic heart disease of native coronary artery without angina pectoris; I25.2 Old myocardial infarction; E11.51 Type 2 diabetes mellitus with diabetic peripheral angiopathy without gangrene; F17.210 Nicotine dependence, cigarettes, uncomplicated; Z86.73 Personal history of transient ischemic attack (TIA), and cerebral infarction without residual deficits; Z88.8 Allergy status to other drugs, medicaments and biological substances
CPT/HCPCS: 96376; 99283; 96374; 96375; 36415; 85025; 80053; J1200; J2930; J3490; J7512; J1815; S0028

== ENCOUNTER 2017-05-27 10:01 | Inpatient (IN) | payer OTHER, MEDICARE ==
[2017-05-27] MEDS ORDERED: NORMAL SALINE 1000 ML 1,000 ML IV ONE (10:26)
[2017-05-27 10:29] LABS: ABSOLUTE BASOPHILS # (AUTO) 0.1 10^3/uL (0.0-0.2); ABSOLUTE EOSINOPHILS # (AUTO) 0.4 10^3/uL (0.0-0.6); ABSOLUTE MONOCYTES (AUTO) 0.9 10^3/uL (0.1-1.4); ABSOLUTE NEUT (AUTO) 4.4 10^3/uL (1.7-8.2); BASOPHILS % (AUTO) 0.8 % (0-2); EOSINOPHILS % (AUTO) 5.5 % (0-6); HEMATOCRIT 43.5 % (37.9-51.0); HEMOGLOBIN 14.8 g/dL (13.5-17.0); LYMPHOCYTES % (AUTO) 25.2 % (13-45); MEAN CORPUSCULAR HEMOGLOBIN 29.4 pg (27.0-33.4); MEAN CORPUSCULAR HGB CONC 34.1 g/dL (32.0-36.0); MEAN CORPUSCULAR VOLUME 86 fl (80-97); MONOCYTES % (AUTO) 11.2 % (3-13); PLATELET COUNT 245 10^3/uL (150-450); RED BLOOD COUNT 5.06 10^6/uL (4.35-5.55); RED CELL DISTRIBUTION WIDTH 14.4 % (11.5-14.0); SEGMENTED NEUTROPHILS % (AUTO) 57.3 % (42-78); TOTAL CELLS COUNTED % (AUTO) 100 %; WHITE BLOOD COUNT 7.8 10^3/uL (4.0-10.5)
--- NOTE | 2017-05-27 10:41 | RADIOLOGY REPORT (SQ) ---
EXAM DESCRIPTION: CT HEAD WITHOUT COMPLETED DATE/TIME: 05/27/2017 10:12 am REASON FOR STUDY: STROKE ALERT COMPARISON: MRI brain 04/01/2017 CT brain 04/01/2017, 08/26/2015 TECHNIQUE: Axial images acquired through the brain without intravenous contrast. Images reviewed wi th bone, brain and subdural windows. Images stored on PACS. All CT scanners at this facility use dose modulation, iterative reconstruction, and/or weight based d osing when appropriate to reduce radiation dose to as low as reasonably achievable (ALARA). [facility]: Dose Right [facility]: CareDose [facility]: Dose Right [facility]: Teradose 4D [facility]: [employer] RADIATION DOSE: 64.6 mGy. LIMITATIONS: None. FINDINGS: Please note that this study was not initially ordered as a stroke alert. VENTRICLES: Normal size and contour. CEREBRUM: No CT evidence of acute large territory ischemic change, acute intracranial hemorrhage, mas s effect, or midline shift. Patient had an old hemorrhagic infarct in the left posterior temporal reg ion in 2015. On the current study, there is focal encephalomalacia in the right posterior temporal c ortex and subcortical white matter best shown on axial images 18-21. CEREBELLUM: No masses. No hemorrhage. No alteration of density. No evidence for acute infarction. Tortuous ectatic basilar artery EXTRAAXIAL SPACES: No fluid collections. No masses. ORBITS AND GLOBE: No intra- or extraconal masses. Normal contour of globe without masses. CALVARIUM: No fracture. PARANASAL SINUSES: No fluid or mucosal thickening. SOFT TISSUES: No mass or hematoma. OTHER: Report called to Dr Henning, 10:15 am 05/27/2017. IMPRESSION: NO ACUTE CHANGES OLD LEFT POSTERIOR TEMPORAL INFARCT EVIDENCE OF ACUTE STROKE: NO. COMMENT: Pertinent findings on the imaging study reported as a CRITICAL RESULT to JARET Watts at10:15 on 05/27/2017. Category of Critical Result: Ct CODE STROKE Please note this study was originally ordered as a routine stat study and not a code stroke Quality ID # [id number]: Final reports with documentation of one or more dose reduction techniques (e.g., Au tomated exposure control, adjustment of the mA and/or kV according to patient size, use of iterative reconstruction technique) TECHNICAL DOCUMENTATION: JOB ID: [id number] All Rights Reserved
[2017-05-27 10:53] LABS: ALANINE AMINOTRANSFERASE 24 U/L (21-72); ALBUMIN 3.2 g/dL (3.5-5.0); ALKALINE PHOSPHATASE 111 U/L (38-126); ANION GAP 8 (5-19); ASPARTATE AMINO TRANSFERASE 28 U/L (17-59); BILIRUBIN,DIRECT 0.3 mg/dL (0.0-0.4); BILIRUBIN,TOTAL 0.4 mg/dL (0.2-1.3); BLOOD UREA NITROGEN 13 mg/dL (7-20); CARBON DIOXIDE 29 mmol/L (22-30); CHLORIDE 100 mmol/L (98-107); CREATINE KINASE 121 U/L (55-170); POTASSIUM 3.6 mmol/L (3.6-5.0); SODIUM 137.1 mmol/L (137-145); TOTAL PROTEIN 6.3 g/dL (6.3-8.2)
--- NOTE | 2017-05-27 11:00 | RADIOLOGY REPORT (SQ) ---
EXAM DESCRIPTION: CHEST SINGLE VIEW COMPLETED DATE/TIME: 05/27/2017 10:51 am REASON FOR STUDY: stroke COMPARISON: 01/06/2017 EXAM PARAMETERS: NUMBER OF VIEWS: One view. TECHNIQUE: Single frontal radiographic view of the chest acquired. RADIATION DOSE: NA LIMITATIONS: Technique. Poor inspiratory effort. FINDINGS: LUNGS AND PLEURA: No opacities, masses or pneumothorax. No pleural effusion. MEDIASTINUM AND HILAR STRUCTURES: Normal for technique. HEART AND VASCULAR STRUCTURES: Stable cardiomegaly. BONES: No acute findings. HARDWARE: None in the chest. OTHER: No other significant finding. IMPRESSION: NO ACUTE RADIOGRAPHIC FINDING IN THE CHEST. TECHNICAL DOCUMENTATION: JOB ID: [id number] [employer]- All Rights Reserved
[2017-05-27 11:03] LABS: INTERNATIONAL RATION (INR) 0.89; PARTIAL THROMBOPLASTIN TIME 29.1 SEC (23.5-35.8); PROTHROMBIN TIME 12.7 SEC (11.4-15.4)
[2017-05-27 11:06] LABS: GLUCOSE 426 mg/dL (75-110)
--- NOTE | 2017-05-27 11:07 | RADIOLOGY REPORT (SQ) ---
EXAM DESCRIPTION: CTA HEAD COMPLETED DATE/TIME: 05/27/2017 10:42 am REASON FOR STUDY: stroke COMPARISON: CT brain 05/27/2017, 08/26/2015 MRI brain with MRA a [place] 04/01/2017 TECHNIQUE: Post IV contrast scanning, thin section axial imaging through the brain to evaluate the a rterial structures. Source and MIP images are saved and reviewed on PACS. Advanced 3D imaging as volume-rendering, MIPs, SSD performed? yes additional 3D reconstructions were generated by the radiologist on an independent workstation and saved to pacs All CT scanners at this facility use dose modulation, iterative reconstruction, and/or weight based d osing when appropriate to reduce radiation dose to as low as reasonably achievable (ALARA). [facility]: Dose Right [facility]: CareDose [facility]: Dose Right [facility]: Teradose 4D [facility]: [employer] CONTRAST TYPE AND DOSE: contrast/concentration: Isovue 370.00 mg/ml; Total Contrast Delivered: 70.0 ml; Total Saline Delivered: 75.0 ml RENAL FUNCTION: Creatinine 0.8 on 04/11/2017 LIMITATIONS: None. FINDINGS: [place]: On the right side, the intracranial internal carotid artery has moderate atherosclerotic irregularity with about 50% diameter narrowing at the level of the right anterior cl inoid. Right anterior cerebral artery is patent, M-1 segment right middle C2 vertebral artery is pat ent. The right perisylvian branches posteriorly are attenuated, small in caliber. However these do enhanc e, configuration is similar compared to MRA exam 04/01/2017. On the left side, the perisylvian carotid artery exhibits moderate atherosclerotic change with about 50% diameter narrowing at the level of the left anterior clinoid. The left anterior cerebral artery and M-1 segment middle cerebral artery are widely patent. Posterio r perisylvian branches on the left exhibit moderate atherosclerotic irregularity with some focal sten osis of the most posterior perisylvian branch, greater than 50% diameter narrowing. This is best amaya wn on series 201, image 56. This is similar compared to the MRA exam 04/01/2017. POSTERIOR CIRCULATION: Distal vertebral arteries are patent. Basilar artery is tortuous and mildly e ctatic. At the basilar tip, a 3 mm saccular aneurysm is present protruding anteriorly off the basilar artery best shown on axial image 52. This is similar compared to MRA exam [place] 04/01/2017 BRAIN: No gross enhancing lesions as visualized. The superior cerebral hemispheres are not included in the field of view. The bottom edge of the field of view, carotid bifurcations are included as well as the cervical inter nal carotid arteries. Carotid bifurcations are patent. No CTA evidence of cervical carotid dissecti on. Upper cervical vertebral arteries are widely patent without dissection. BONES: Intact as visualized. SINUSES: No fluid or mucosal thickening. OTHER: These findings were discussed with Dr. Henning, 1040 hours 05/27/2017 IMPRESSION: Widely patent carotid bifurcations and cervical internal carotid arteries. Cervical roger tebral arteries are unremarkable in the field of view Small right distal MCA branches in the posterior sylvian fissure, similar compared to MRA 04/01/2017. 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
[2017-05-27] MEDS ORDERED: IPRATROPIUM/ALBUTEROL 0.5-2.5 MG/3 ML AMPUL NEB ONE (11:09)
--- NOTE | 2017-05-27 11:21 | ER Document Report ---
ED General - General Chief Complaint: S/S of Possible Stroke Stated Complaint: STROKE ALERT Time Seen by Provider: 05/27/17 10:11 TRAVEL OUTSIDE OF THE [place] IN LAST 30 DAYS: No - HPI Patient complains to provider of: Confusion aphasia Notes: Patient coming in the EMS for confusion and aphasia. Patient has a history of strokes in the past patient does have a history of A. fib and currently is only on Plavix. By my evaluation patient is alert however confused unable to give much useful information is that he has nonsensical verbal response to my questions. Vital signs otherwise look to be intact According EMS patient was eating breakfast when symptoms started. Symptoms started at 730 - Related Data Allergies/Adverse Reactions: lisinopril Allergy (Verified 04/11/17 14:19) Past Medical History - Social History Smoking Status: Never Smoker Chew tobacco use (# tins/day): No Frequency of alcohol use: None Drug Abuse: None Family History: CAD, Hypertension, Reviewed & Not Pertinent, Other Patient has suicidal ideation: No Patient has homicidal ideation: No - Past Medical History Cardiac Medical History: Reports: Hx Atrial Fibrillation, Hx Congestive Heart Failure, Hx Coronary Artery Disease, Hx Heart Attack - "Massive" heart attack in 2010 had balloon angioplasty, no stents., Hx Hypercholesterolemia, Hx Hypertension, Hx Peripheral Vascular Disease - renal artery stenosis Neurological Medical History: Reports: Hx Cerebrovascular Accident - Hemorrhagic left MCA territory infarct on 08/26/2015, Hx Seizures - Keppra Endocrine Medical History: Reports: Hx Diabetes Mellitus Type 2 Renal/ Medical History: Denies: Hx Peritoneal Dialysis Musculoskeltal Medical History: Reports Hx Arthritis - gout, Reports Hx Gout Psychiatric Medical History: Denies: Hx Depression Past Surgical History: Reports: Hx Cardiac Catheterization - With balloon angioplasty., Hx Cardiac Surgery - watchmen device 2015, Hx Kidney (Renal Surgery) - Renal stent, Hx Urinary Tract Surgery - renal stent, Hx Vascular Surgery - Renal artery stent placement, Other - Watchman's device placed at [place] last year - Immunizations Hx Diphtheria, Pertussis, Tetanus Vaccination: - Unknown Review of Systems - Review of Systems -: Yes ROS unobtainable due to patient's medical condition - Aphasia Physical Exam - Vital signs Vitals: Resp Pulse Ox 22 H 96 05/27/17 10:08 05/27/17 10:08 Interpretation: Normal - General General appearance: Appears well, Alert - HEENT Head: Normocephalic, Atraumatic Eyes: Normal Pupils: PERRL - Respiratory Respiratory status: No respiratory distress Chest status: Nontender Breath sounds: Normal Chest palpation: Normal - Cardiovascular Rhythm: Regular Heart sounds: Normal auscultation Murmur: No - Abdominal Inspection: Normal Distension: No distension Bowel sounds: Normal Tenderness: Nontender Organomegaly: No organomegaly - Back Back: Normal, Nontender - Extremities General upper extremity: Normal inspection, Nontender, Normal color, Normal ROM , Normal temperature General lower extremity: Normal inspection, Nontender, Normal color, Normal ROM , Normal temperature, Normal weight bearing. No: Lion's sign - Neurological Neuro grossly intact: Yes Cognition: Confused Waterproof Coma Scale Eye Opening: Spontaneous Waterproof Coma Scale Verbal: Confused Waterproof Coma Scale Motor: Localizes to Pain Waterproof Coma Scale Total: 13 Speech: Expressive aphasia Motor strength normal: LUE, RUE, LLE, RLE Sensory: Normal - Psychological Associated symptoms: Normal affect, Normal mood - Skin Skin Temperature: Warm Skin Moisture: Dry Skin Color: Normal Course - Re-evaluation Re-evalutation: 05/27/17 11:11 Patient coming in with strokelike symptoms. NIH score was performed please refer to this. I did confirm with previous HPI initially is at the family was at bedside patient does have a history of intracranial bleed due to Xarelto. Patient would not be a candidate for TPA because of this history of intracranial bleed. I did discuss this with the at bedside. Because of the acute onset of symptoms and will perform a CTA of the head look for a large lesion Notified of the CT a results no large lesions. 05/27/17 12:43 Discussed with the hospitalist requesting that I ask the family would like the patient to see a neurologist as that we did not have any neurology and call the patient family without neurology will have a transfer. Discussed with family initially requesting neurologist. I did discuss with De Agosto is currently on the version because the patient is not in acute stroke unable to set transport at that time De Agosto currently on the version. Did discuss with DR Garza neurology at [facility] again agrees at this time not a TPA candidate as the patient has a history of intracranial bleed patient also not a candidate for any directed therapy as he does not have any large lesions on the CTA. Recommended medication modifications adjustment of his blood pressure medications aggressive treatment medically. Do not see need for transfer at this time recommended I speak to hospitalist again.\\ Again spoke with our hospitalist and I spoke with family members family member agrees at this time after speaking with neurology that the patient would be only medically managed here at the hospital that the patient would not see neurology however is requesting that we establish outpatient care and outpatient neurology care. Discussed with hospitalist Dr. Mendoza and also updated Dr. Fletcher. At this time will admit for acute CVA 05/27/17 15:44 - Vital Signs Vital signs: Temp Pulse Resp BP Pulse Ox 97.4 F 73 14 163/112 H 95 05/27/17 10:22 05/27/17 10:35 05/27/17 15:01 05/27/17 15:01 05/27/17 15:01 - Laboratory Result Diagrams: 05/27/17 10:05 05/27/17 10:05 Laboratory results interpreted by me: 05/27/17 05/27/17 10:05 10:05 RDW 14.4 H Glucose 426 H* Albumin 3.2 L Critical Care Note - Critical Care Note Total time excluding time spent on procedures (mins): 40 Comments: Multiple evaluations phone calls specially servives for patient with a acute stroke Discharge - Discharge Clinical Impression: Acute CVA (cerebrovascular accident), Expressive aphasia, Atrial fibrillation, chronic Uncontrolled diabetes mellitus Qualifiers: Diabetes mellitus type: other specified (including NADIRA) Diabetes mellitus complication status: with unspecified complications Diabetes mellitus skilled nursing insulin use: unspecified skilled nursing insulin use status Qualified Code(s): E13.8 - Other specified diabetes mellitus with unspecified complications; E13.65 - Other specified diabetes mellitus with hyperglycemia; E13.65 - Other specified diabetes mellitus with hyperglycemia; E13.65 - Other specified diabetes mellitus with hyperglycemia; E13.65 - Other specified diabetes mellitus with hyperglycemia Condition: Fair Disposition: ADMITTED INPATIENT Admitting Provider: Jordi Mendoza Unit Admitted: Telemetry ED NIH Stroke Scale - NIH Stroke Scale *: 1. NIH scale should be completed with appropriate accompanying assessment tools. *: 2. The NIH should reflect what the patient is capable of doing and should not be coached by the clinician. 1a. Level of Consciousness: 0=Alert;keenly responsive -: 1=Drowsy -: 2=Obtunded -: 3=Coma/unresponsive or reflex to noxious stimuli. 1a. Responses: 0 1b. Orientation Questions: a. What month is it? -: b. How old are you? -: 0=Answers both questions correctly. -: 1=Answers one question correctly or patient is intubated or has orotracheal trauma. -: 2=Answers neither question correctly. 1b. Responses: 1 1c. Response to commands: a. Open and close eyes? -: b. Hiv Nurse and release hand? -: Credit is given despite weakness. Demonstration of task is permitted. Substitute command if hands cannot be used. -: 0=Performs both tasks correctly -: 1=Performs one task correctly -: 2=Performs neither task correctly 1c. Responses: 0 2. Gaze: Establish eye contact and instruct patient to "Follow my finger" -: 0=Normal -: 1=Partial gaze palsy. Gaze is abnormal in one or both eyes, but where forced deviation or total gaze paresis is not present. -: 2=Forced deviation or total gaze paresis. 2. Responses: 0 3. Visual Hoff: Sees fingers in all four quadrants. -: 0=No visual loss. -: 1=Partial hemianopsia. -: 2=Complete hemianopsia. -: 3=Bilateral hemianopsia (including Cortical blindness) 3. Responses: 0 4. Facial Movement: Instruct patient to: -: a. Show me your teeth -: b. Raise your eyebrows -: c. Close your eyes -: d. Smile -: 0=Normal symmetrical movement -: 1=Minor paralysis (flattened nasolabial fold, asymmetry on smiling). -: 2=Partial paralysis (total or near total paralysis of lower face). -: 3=Complete paralysis of upper and lower face 4. Responses: 0 5. Motor functions (left arm): Alternate sides and extend each arm with palms down (90 degrees if sitting or 45 degrees for supine). -: 0=No drift;limb holds for full 10 seconds. -: 1=Drift; limb holds but drifts down before full 10 seconds, but does not hit bed. -: 2=Some effort against gravity; limb cannot get to or maintain position. -: 3=No effort against gravity; limb falls. -: 4=No movement. -: UN=Amputation, joint fusion, explain in comments. 5. Responses (left arm): 0 5. Motor Functions (right arm): Alternate sides and extend each arm with palms down (90 degrees if sitting or 45 degrees for supine). -: 0=No drift;limb holds for full 10 seconds. -: 1=Drift; limb holds but drifts down before full 10 seconds, but does not hit bed. -: 2=Some effort against gravity; limb cannot get to or maintain position. -: 3=No effort against gravity; limb falls. -: 4=No movement. -: UN=Amputation, joint fusion, explain in comments. 5. Responses (right arm): 0 6. Motor Functions (left leg): With patient lying supine, alternate sides and extend each leg (30 degrees always while supine). -: 0=No drift, leg holds position for full 5 seconds -: 1=Drift; leg falls before full 5 seconds but does not hit bed. -: 2=Some effort against gravity, leg falls to bed but some effort against gravity. -: 3=No effort against gravity, leg falls to bed immediately. -: 4=No movement. -: UN=Amputation, joint fusion; explain in comments. 6. Responses (left leg): 0 6. Motor Functions (right leg): With patient lying supine, alternate sides and extend each leg (30 degrees always while supine). -: 0=No drift, leg holds position for full 5 seconds -: 1=Drift; leg falls before full 5 seconds but does not hit bed. -: 2=Some effort against gravity, leg falls to bed but some effort against gravity. -: 3=No effort against gravity, leg falls to bed immediately. -: 4=No movement. -: UN=Amputation, joint fusion; explain in comments. 6. Responses (right leg): 0 7. Limb Ataxia: With eyes open instruct patient to: -: a. "Touch your finger to your nose". -: b. "Touch your heel to your shukla" -: 0=Absent -: 1=Present in one limb. -: 2=Present in two limbs. -: UN=Amputation or joint fusion; explain in comments. 7. Responses: 0 8. Sensory: Test sensation using pinprick or noxious stimuli. Test as many body parts as possible. -: 0=Normal;no sensory loss -: 1=Mile to moderate sensory loss (patient feels pin prick but is less sharp on affected side). -: 2=Severe or total sensory loss. 8. Responses: 1 9. Best Language: Instruct patient to: -: a. "Describe what you see in this picture." -: b. "Name the items in this picture." -: c. "Read these sentences." -: 0=No aphasia, normal -: 1=Mild to moderate aphasia. -: 2=Severe aphasia -: 3=Mute, global aphasia, no usable speech or auditory comprehension. 9. Responses: 2 10. Articulation, Dysarthia: Instruct patient to: -: "Read these words" or "Repeat these words" -: 0=Normal -: 1=Mild to moderate; patient may slur some words but can be understood without difficulty. -: 2=Severe; patients speech so slurred as to be unintelligible in the absence of dysphasia. -: UN=Intubated or other physical barrier, explain in comments. 10. Responses: 1 11. Extinction or inattention: 0=No abnormality -: 1= Visual, tactile, auditory, spatial, or personal inattention or extinction to bilateral simulation in one or the sensory modalities. -: 2=Profound anne-inattention or anne-inattention to more than one modality; does not recognize own hand. Total Score: 5
[2017-05-27 11:26] LABS: CREATINE KINASE MB 2.11 ng/mL (<4.55)
[2017-05-27 11:28] LABS: TROPONIN I < 0.012 ng/mL
[2017-05-27] MEDS ORDERED: OXYCODONE-ACETAMINOPHEN 5-325 MG TABLET PO PRN (13:47)
[2017-05-27] MEDS ORDERED: ONDANSETRON HCL INJ/PF 4 MG/2 ML SDV IV PRN (13:47)
[2017-05-27] MEDS ORDERED: ACETAMINOPHEN 325 MG TABLET PO PRN (13:47)
[2017-05-27] MEDS ORDERED: GLUCAGON,HUMAN RECOMB 1 MG INJ IM PRN (13:53)
[2017-05-27] MEDS ORDERED: DEXTROSE 50%-WATER 25 GM/50 ML DISP.SYRIN IV PRN ×2 (13:53)
[2017-05-27] MEDS ORDERED: DEXTROSE 40% GEL 15 GM TUBE PO PRN ×2 (13:53)
[2017-05-27] MEDS ORDERED: ENOXAPARIN SODIUM INJ 40 MG/0.4 ML DISP.SYRIN SUBCUT ONE (14:00)
[2017-05-27] MEDS: ASPIRIN 81 MG TABLET, ENT COATED PO SCH (15:18)
[2017-05-27] MEDS: CLOPIDOGREL BISULFATE 75 MG TABLET PO SCH (15:18)
[2017-05-27] MEDS ORDERED: HYDRALAZINE HCL INJ/PF 20 MG/1 ML SDV IV PRN (16:43)
--- NOTE | 2017-05-27 16:43 | RADIOLOGY REPORT (SQ) ---
EXAM DESCRIPTION: MRI HEAD WITHOUT COMPLETED DATE/TIME: 05/27/2017 4:33 pm REASON FOR STUDY: stroke COMPARISON: 04/01/2017 TECHNIQUE: Multiplanar imaging includes non-contrasted T1, T2, FLAIR, and diffusion with ADC map seq uences. Images stored on PACS. LIMITATIONS: None. FINDINGS: ANATOMY: Stable basilar tip aneurysm. CSF SPACES: Atrophy induced prominence of ventricles and CSF spaces. CEREBRUM: Old infarct left internal capsule. High signal intensity lesions scattered throughout the white matter on FLAIR imaging with distribution suggesting micro-vascular ischemic changes. No evide nce of hemorrhage, mass, or extraaxial fluid collection. POSTERIOR FOSSA: No signal alteration. No hemorrhage. No edema, masses or mass effect. Internal ognzalez tory canals, cerebello-pontine angles, mastoids normal. DIFFUSION IMAGING: Negative for acute or sub-acute infarction. ORBITS: No masses. Globes normal. PARANASAL SINUSES: No fluid levels. Mucosa normal. OTHER: No other significant finding. IMPRESSION: Stable, chronic changes. EVIDENCE OF ACUTE STROKE: NO. TECHNICAL DOCUMENTATION: JOB ID: [id number] [employer]- All Rights Reserved
--- NOTE | 2017-05-27 16:47 | PDOC H&P ---
History of Present Illness Admission Date/PCP: 05/27/17 14:03 REESE CLARK History of Present Illness: DANNI CROUCH is a 61 year old male with a past medical history significant for previous ischemic stroke, intracranial hemorrhage in the setting of Xarelto, and chronic atrial fibrillation who presented to the emergency department today after experiencing expressive aphasia. He was last hospitalized [facility] March 2017 with a similar presentation of expressive aphasia. Prior to that, he was reportedly hospitalized March 12 in the [facility]. He was hospitalized for similar symptoms. He also reportedly received TPA. Currently he is taking Plavix but not aspirin. He reports failing warfarin as an outpatient due to difficulty with bleeding while living in [place]. Past Medical History Cardiac Medical History: Reports: Atrial Fibrillation, Congestive Heart Failure , Coronary Artery Disease, Myocardial Infarction - "Massive" heart attack in 2010 had balloon angioplasty, no stents., Hyperlipidema, Hypertension, Peripheral Vascular Disease - renal artery stenosis Neurological Medical History: Reports: Seizures - Keppra Endocrine Medical History: Reports: Diabetes Mellitus Type 2 Musculoskeltal Medical History: Reports: Arthritis - gout, Gout Psychiatric Medical History: Denies: Depression Hematology: Reports: Bleeding Tendencies Past Surgical History Past Surgical History: Reports: Cardiac Catheterization - With balloon angioplasty., Vascular Surgery - Renal artery stent placement, Other - Watchman' s device placed at [place] last year Social History Information Source: Emergency Med Personnel Lives with: Spouse/Significant other Smoking Status: Never Smoker Frequency of Alcohol Use: Occasional Hx Recreational Drug Use: No Drugs: None Hx Prescription Drug Abuse: No - Advance Directive Resuscitation Status: Full Code Surrogate healthcare decision maker:: , Tea Family History Family History: CAD, Hypertension, Reviewed & Not Pertinent, Other Parental Family History Reviewed: No Children Family History Reviewed: No Sibling(s) Family History Reviewed.: No Medication/Allergy Home Medications: Clonidine HCl [Catapres 0.2 mg Tablet] 0.2 mg PO Q8 05/27/17 Clopidogrel Bisulfate [Plavix 75 mg Tablet] 75 mg PO DAILY 05/27/17 Diltiazem HCl [Cardizem Cd 240 mg Capsule.cr] 240 mg PO DAILY 05/27/17 Metoprolol Succinate [Toprol XL 200 mg Tablet] 200 mg PO DAILY 05/27/17 Allergies/Adverse Reactions: lisinopril Allergy (Verified 04/11/17 14:19) Review of Systems ROS unobtainable: Other - Expressive aphasia Physical Exam Vital Signs: Temp Pulse Resp BP Pulse Ox 97.4 F 73 14 163/112 H 95 05/27/17 10:22 05/27/17 10:35 05/27/17 15:01 05/27/17 15:01 05/27/17 15:01 General appearance: PRESENT: no acute distress, cooperative, well-developed, well-nourished Head exam: PRESENT: atraumatic, normocephalic Eye exam: PRESENT: EOMI, PERRLA Mouth exam: PRESENT: moist, tongue midline Neck exam: PRESENT: full ROM. ABSENT: carotid bruit, JVD Respiratory exam: PRESENT: clear to auscultation patrizia, unlabored Cardiovascular exam: PRESENT: irregular rhythm. ABSENT: diastolic murmur, systolic murmur GI/Abdominal exam: PRESENT: normal bowel sounds, soft. ABSENT: distended, guarding, mass, organolmegaly, rebound, tenderness Extremities exam: PRESENT: full ROM. ABSENT: calf tenderness, clubbing, pedal edema Musculoskeletal exam: PRESENT: ambulatory, other - Bilateral wrist drop Neurological exam: PRESENT: alert, awake, reflexes normal, CN II-XII grossly intact Results Impressions: Head CT 05/27/17 00:00 IMPRESSION: NO ACUTE CHANGES OLD LEFT POSTERIOR TEMPORAL INFARCT EVIDENCE OF ACUTE STROKE: NO. Head CTA 05/27/17 10:19 IMPRESSION: Widely patent carotid bifurcations and cervical internal carotid arteries. Cervical vertebral arteries are unremarkable in the field of view Small right distal MCA branches in the posterior sylvian fissure, similar compared to MRA 04/01/2017. 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 Assessment & Plan - Diagnosis (1) Expressive aphasia Is this a current diagnosis for this admission?: Yes Plan: Brain MRI ordered. PT/ST/OT ordered. Continue clopidogrel. Add aspirin 81 mg daily. check lipid panel in a.m. permissive HTN for the first 24 hours. Repeat Echo. (2) Uncontrolled diabetes mellitus Qualifiers: Diabetes mellitus type: other specified (including NADIRA) Diabetes mellitus complication status: with unspecified complications Diabetes mellitus termite technician insulin use: unspecified termite technician insulin use status Qualified Code(s): E13.8 - Other specified diabetes mellitus with unspecified complications; E13.65 - Other specified diabetes mellitus with hyperglycemia; E13.65 - Other specified diabetes mellitus with hyperglycemia; E13.65 - Other specified diabetes mellitus with hyperglycemia; E13.65 - Other specified diabetes mellitus with hyperglycemia Is this a current diagnosis for this admission?: Yes Plan: Start insulin scale. He may need long acting insulin. Check Hgb A1c (3) Atrial fibrillation, chronic Is this a current diagnosis for this admission?: Yes Plan: Rate controlled. Continue beta-alexei tomorrow. (4) Hypertension Qualifiers: Hypertension type: essential hypertension Qualified Code(s): I10 - Essential (primary) hypertension Is this a current diagnosis for this admission?: Yes Plan: BP is uncontrolled. Allow permissive HTN x 24 hr. Add hydralazine 10 mg IV prn SBP > 220 or DBP > 110 (5) Hyperlipidemia Qualifiers: Hyperlipidemia type: mixed hyperlipidemia Qualified Code(s): E78.2 - Mixed hyperlipidemia Is this a current diagnosis for this admission?: Yes Plan: Check lipid panel in a.m. - Time Time Spent: 50 to 70 Minutes Anticipated discharge: Home Within: within 48 hours - Inpatient Certification Based on my medical assessment, after consideration of the patient's comorbidities, presenting symptoms, or acuity I expect that the services needed warrant INPATIENT care.: Yes I certify that my determination is in accordance with my understanding of Medicare's requirements for reasonable and necessary INPATIENT services [42 CFR 412.3e].: Yes Medical Necessity: Need Close Monitoring Due to Risk of Patient Decompensation, Need For Continuous Telemetry Monitoring, Need for Neurological Checks
[2017-05-27] MEDS: INSULIN LISPRO 100 UNIT/ML 3 ML VIAL SUBCUT PRN ×2 (18:09→23:11)
[2017-05-27] MEDS: DOCUSATE SODIUM 100 MG CAPSULE PO SCH (18:10)
[2017-05-27] MEDS: CLONIDINE HCL 0.2 MG TABLET PO SCH (23:13)
[2017-05-28] MEDS ORDERED: INFLUENZA ADLT QUAD (36MOS+) 2017-18 VAC 0.5 ML SYR IM PRN (00:38)
[2017-05-28] MEDS: CLONIDINE HCL 0.2 MG TABLET PO SCH ×2 (05:53→14:05)
[2017-05-28 07:33] LABS: HEMATOCRIT 46.3 % (37.9-51.0); HEMOGLOBIN 15.9 g/dL (13.5-17.0); MEAN CORPUSCULAR HEMOGLOBIN 29.2 pg (27.0-33.4); MEAN CORPUSCULAR HGB CONC 34.3 g/dL (32.0-36.0); MEAN CORPUSCULAR VOLUME 85 fl (80-97); PLATELET COUNT 242 10^3/uL (150-450); RED BLOOD COUNT 5.43 10^6/uL (4.35-5.55); RED CELL DISTRIBUTION WIDTH 14.5 % (11.5-14.0); WHITE BLOOD COUNT 6.9 10^3/uL (4.0-10.5)
[2017-05-28 07:54] LABS: ALANINE AMINOTRANSFERASE 26 U/L (21-72); ALKALINE PHOSPHATASE 85 U/L (38-126); ANION GAP 7 (5-19); ASPARTATE AMINO TRANSFERASE 21 U/L (17-59); BILIRUBIN,DIRECT 0.2 mg/dL (0.0-0.4); BILIRUBIN,TOTAL 0.4 mg/dL (0.2-1.3); BLOOD UREA NITROGEN 12 mg/dL (7-20); CALCIUM 8.8 mg/dL (8.4-10.2); CARBON DIOXIDE 28 mmol/L (22-30); CHLORIDE 106 mmol/L (98-107); CHOLESTEROL 260.74 mg/dL (0-200); GLUCOSE 239 mg/dL (75-110); MAGNESIUM 1.9 mg/dL (1.6-2.3); PHOSPHORUS 3.5 mg/dL (2.5-4.5); POTASSIUM 3.2 mmol/L (3.6-5.0); SODIUM 140.5 mmol/L (137-145); TOTAL PROTEIN 5.9 g/dL (6.3-8.2); TRIGLYCERIDES 138 mg/dL (<150)
[2017-05-28 08:04] LABS: DIRECT LDL 219 mg/dL (<100)
[2017-05-28] MEDS: INSULIN LISPRO 100 UNIT/ML 3 ML VIAL SUBCUT PRN ×3 (08:33→16:59)
[2017-05-28] MEDS ORDERED: DILTIAZEM HCL 240 MG CAPSULE.CR PO SCH (10:00)
[2017-05-28] MEDS ORDERED: ENOXAPARIN SODIUM INJ 40 MG/0.4 ML DISP.SYRIN SUBCUT SCH (10:00)
[2017-05-28] MEDS: DOCUSATE SODIUM 100 MG CAPSULE PO SCH ×2 (11:25→17:01)
--- NOTE | 2017-05-28 11:37 | PDOC CONSULTATION ---
Consultation Consult Date: 05/27/17 Attending physician:: NOEMÍ LIU Consult reason:: Cerebrovascular accident, atrial fibrillation History of Present Illness Admission Date/PCP: 05/27/17 14:03 REESE CLARK Patient complains of: Slurred speech History of Present Illness: DANNI CROUCH is a 61 year old male with a past medical history significant for previous ischemic stroke, intracranial hemorrhage in the setting of Xarelto, and chronic atrial fibrillation who presented to the emergency department today after experiencing expressive aphasia. He was last hospitalized [facility] March 2017 with a similar presentation of expressive aphasia. Prior to that, he was reportedly hospitalized March 12 in the [facility]. He was hospitalized for similar symptoms. He also reportedly received TPA. Currently he is taking Plavix but not aspirin. He reports failing warfarin as an outpatient due to difficulty with bleeding while living in [place]. This history was reviewed and confirmed. In addition patient had a watchman device placed at [facility] in the left atrial appendage in setting of intracranial hemorrhage and history of chronic atrial fibrillation and stroke. Patient has not had a follow-up at [facility] since then. Patient claims that the watchman device was placed to prevent strokes. Past Medical History Cardiac Medical History: Reports: Atrial Fibrillation, Congestive Heart Failure , Coronary Artery Disease, Myocardial Infarction - "Massive" heart attack in 2010 had balloon angioplasty, no stents., Hyperlipidema, Hypertension, Peripheral Vascular Disease - renal artery stenosis Neurological Medical History: Reports: Seizures - Keppra Endocrine Medical History: Reports: Diabetes Mellitus Type 2 Musculoskeltal Medical History: Reports: Arthritis - gout, Gout Psychiatric Medical History: Denies: Depression Hematology: Reports: Bleeding Tendencies Past Surgical History Past Surgical History: Reports: Cardiac Catheterization - With balloon angioplasty., Vascular Surgery - Renal artery stent placement, Other - Watchman' s device placed at [place] last year Social History Information Source: Patient Lives with: Spouse/Significant other Smoking Status: Never Smoker Frequency of Alcohol Use: Occasional Hx Recreational Drug Use: No Drugs: None Hx Prescription Drug Abuse: No - Advance Directive Resuscitation Status: Full Code Family History Family History: CAD, Hypertension, Reviewed & Not Pertinent, Other Parental Family History Reviewed: Yes Children Family History Reviewed: Yes Sibling(s) Family History Reviewed.: Yes Medication/Allergy Home Medications: Clonidine HCl [Catapres 0.2 mg Tablet] 0.2 mg PO Q8 05/27/17 Clopidogrel Bisulfate [Plavix 75 mg Tablet] 75 mg PO DAILY 05/27/17 Diltiazem HCl [Cardizem Cd 240 mg Capsule.cr] 240 mg PO DAILY 05/27/17 Metoprolol Succinate [Toprol XL 200 mg Tablet] 200 mg PO DAILY 05/27/17 Allergies/Adverse Reactions: lisinopril Allergy (Verified 04/11/17 14:19) Review of Systems Review of Systems: Please see history of present illness and past medical history as wall. Constitutional: No fever or chills reported. Head : No recent chronic headaches, recent head injury. Eyes: No recent eye pain, diplopia, redness, discharge, acute visual changes. Ears: No recent chronic ear pain, acute hearing loss, ear discharge. Oral cavity: No recent ulcerations, bleeding, oral cavity discomfort. Neck: No recent acute neck pain reported. Hematologic: No recent easy bruising or bleeding or hematologic malignancy reported. Lymphatic: No recent lymphatic malignancy, chronic lymphadenopathy reported yet Cardiovascular system review: See history of present illness. Respiratory system review: No recent chronic cough, hemoptysis, blood clots in the lungs reported. Mild Shortness of breath on exertion Gastrointestinal system review: Negative for any recent acute or chronic abdominal pain, hematemesis, melena, recent change in bowel habits. Genitourinary system review: No recent acute or chronic hematuria, flank pain, UTI etc. reported. Skin system review: Negative for any recent abnormal bruising, no rash, no pruritus reported. Neurologic: Prior history of strokes but no definite history of seizure disorder. History of significant peripheral neuropathy with muscle wasting. Psychologic: No history of major psychosis or major depression reported. Musculoskeletal: Minor aches and pains reported. No acute joint swelling reported. Endocrine: No recent polyuria, polydipsia, recent heat or cold intolerance. Physical Exam Vital Signs: Temp Pulse Resp BP Pulse Ox 97.4 F 73 22 H 185/131 H 96 05/27/17 10:22 05/27/17 10:35 05/27/17 18:01 05/27/17 18:01 05/27/17 18:01 Exam: GENERAL: well-nourished and in no acute distress. Alert and oriented x3 HEAD: Atraumatic, normocephalic. EYES: Pupils equal round and reactive to light, extraocular movements intact, sclera anicteric, conjunctiva are normal. ENT: TMs normal, nares patent, oropharynx clear without exudates. Moist mucous membranes. No oral ulcerations or bleeding gums noted NECK: supple without lymphadenopathy. Trachea is central. No cervical or axillary lymphadenopathy noted. Carotids are 2+, JVD WNL LUNGS: Respiration seems nonlabored, no significant accessory muscle action noted. Breath sounds clear to auscultation bilaterally and equal noted. No wheezes rales or rhonchi noted. No significant dullness noted on percussion. CHEST: Palpation of the chest wall shows no significant chest wall tenderness. No other significant abnormalities noted. HEART: [place] MULE RIDER, No PSH, 1/6 RENU aortic area, 1/6 kaur systolic murmur mitral area, no rubs, no gallops. ABDOMEN: Soft, no significant tenderness appreciated, normoactive bowel sounds. No guarding, no rebound. No rigidity noted . No masses appreciated. EXTREMITIES: Pedal pulses are 1-2+, no calf tenderness noted. No clubbing or cyanosis.trace to 1+ pedal edema noted NEUROLOGICAL: Patient has significant peripheral neuropathy mainly motor wasting and weakness and some sensory loss. His speech has normalized by the time I saw him. No other significant focal neurological deficit noted. PSYCH: Normal mood, normal affect. Judgment and insight within normal limits. SKIN: No significant ecchymosis, rash, ulcerations or signs of pruritus noted. MUSCULOSKELETAL EXAM: No significant joint swelling noted. Patient has wasting of muscles secondary to peripheral neuropathy. Results Laboratory Results: 05/27/17 18:05 Troponin I < 0.012 EKG Comments: Atrial fibrillation with controlled ventricular response. No acute ST-T wave changes noted. Impressions: Head CT 05/27/17 00:00 IMPRESSION: NO ACUTE CHANGES OLD LEFT POSTERIOR TEMPORAL INFARCT EVIDENCE OF ACUTE STROKE: NO. Head MRI 05/27/17 00:00 IMPRESSION: Stable, chronic changes. EVIDENCE OF ACUTE STROKE: NO. Head CTA 05/27/17 10:19 IMPRESSION: Widely patent carotid bifurcations and cervical internal carotid arteries. Cervical vertebral arteries are unremarkable in the field of view Small right distal MCA branches in the posterior sylvian fissure, similar compared to MRA 04/01/2017. 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 Assessment & Plan - Diagnosis (1) Acute CVA (cerebrovascular accident) Is this a current diagnosis for this admission?: Yes (2) Atrial fibrillation, chronic Is this a current diagnosis for this admission?: Yes (3) Expressive aphasia Is this a current diagnosis for this admission?: Yes (4) Hypertension Qualifiers: Hypertension type: essential hypertension Qualified Code(s): I10 - Essential (primary) hypertension Is this a current diagnosis for this admission?: Yes (5) Uncontrolled diabetes mellitus Qualifiers: Diabetes mellitus type: other specified (including NADIRA) Diabetes mellitus complication status: with unspecified complications Diabetes mellitus remote computer terminal operator insulin use: unspecified assisted insulin use status Qualified Code(s): E13.8 - Other specified diabetes mellitus with unspecified complications; E13.65 - Other specified diabetes mellitus with hyperglycemia; E13.65 - Other specified diabetes mellitus with hyperglycemia; E13.65 - Other specified diabetes mellitus with hyperglycemia; E13.65 - Other specified diabetes mellitus with hyperglycemia Is this a current diagnosis for this admission?: Yes (6) Coronary artery disease Qualifiers: Coronary Disease-Associated Artery/Lesion type: [place] artery Associated angina: angina presence unspecified Is this a current diagnosis for this admission?: Yes (7) History of cerebral hemorrhage Is this a current diagnosis for this admission?: Yes - Notes Notes: Recommend antiplatelet, statin therapy. Unfortunately, chronic anticoagulation may be contraindicated in this gentleman. Feel that there is a possibility that slurred speech could have been related to hyperglycemia. Discussed risk benefits of chronic anticoagulation in detail with patient and his . Feel the best person to make this determination will be the zoning administrator who placed the watchman device in conjunction with neurologist. Patient also does not seem to be very keen on going back on chronic anticoagulation. At this point, feel that patient can be discharged on Plavix, statins and other therapy. Patient would definitely would have benefited from a transesophageal echocardiogram but we do not offer that services in this institution, I however doubt if that will change our management plans based on patient's propensity to bleed. Recommend a 2D echo prior to discharge. - Time Time Spent: 30 to 50 Minutes - CODE STATUS was discussed, patient remains full code. Surrogate decision-maker unchanged. Multiple medical problems were addressed. More than 50% of the time spent coordinating care, discussing management plans with involved caregivers. Management plans discussed with involved personnels. Medical decision making was of moderate to high complexity , patient's has multiple comorbidities. Medications reviewed and adjusted accordingly: Yes
--- NOTE | 2017-05-28 11:56 | EKG REPORT ---
SEVERITY:- ABNORMAL ECG - ATRIAL FIBRILLATION, V-RATE 51-90 LEFT VENTRICULAR HYPERTROPHY PROBABLE INFERIOR INFARCT, AGE INDETERMINATE : Confirmed by: Moe Devi 28-May-2017 11:55:31
[2017-05-28] MEDS: CLOPIDOGREL BISULFATE 75 MG TABLET PO SCH (14:05)
[2017-05-28] MEDS: ASPIRIN 81 MG TABLET, ENT COATED PO SCH (14:05)
--- NOTE | 2017-05-28 16:26 | PDOC DISCHARGE SUMMARY ---
General - Admit/Disc Date/PCP Admission Date/Primary Care Provider: 05/27/17 14:03 REESE CLARK Discharge Date: 05/28/17 - Discharge Diagnosis (1) Expressive aphasia Is this a current diagnosis for this admission?: Yes Summary: Resolved. He was seen by cardiology who recommended a transthoracic echocardiogram. Unfortunately, the test could not be done. The patient and his were eager to be discharged. He has a follow-up appointment with Dr. Clark. He will continue Plavix. I will restart aspirin 81 mg daily. He stated that he was intolerant to statins. He stated to Lipitor because his left face to droop. (2) Uncontrolled diabetes mellitus Is this a current diagnosis for this admission?: Yes Summary: Start glipizide XL 5 mg daily (3) Atrial fibrillation, chronic Is this a current diagnosis for this admission?: Yes Summary: Rate is controlled. He is not a candidate for warfarin due to previous hemorrhage. Continue aspirin and Plavix. (4) Hypertension Is this a current diagnosis for this admission?: Yes Summary: BP elevated, but he wasn't on his usual medications for permissive hypertension. Resume home medications. (5) Hyperlipidemia Is this a current diagnosis for this admission?: Yes Summary: Statin intolerant. - Additional Information Resuscitation Status: Full Code Discharge Diet: Cardiac Discharge Activity: Activity As Tolerated Prescriptions: Glipizide [Glipizide Xl] 5 mg PO DAILY #30 tab.er.[id number] Home Medications: Clonidine HCl [Catapres 0.2 mg Tablet] 0.2 mg PO Q8 05/27/17 Clopidogrel Bisulfate [Plavix 75 mg Tablet] 75 mg PO DAILY 05/27/17 Diltiazem HCl [Cardizem Cd 240 mg Capsule.cr] 240 mg PO DAILY 05/27/17 Metoprolol Succinate [Toprol XL 200 mg Tablet] 200 mg PO DAILY 05/27/17 Aspirin [Ecotrin 81 mg EC Tablet] 81 mg PO DAILY@1400 tabec 05/28/17 Clopidogrel Bisulfate [Plavix 75 mg Tablet] 75 mg PO DAILY@1400 tablet Glipizide [Glipizide Xl] 5 mg PO DAILY #30 tab.er.24 05/28/17 History of Present Illness History of Present Illness: DANNI CROUCH is a 61 year old male with a past medical history significant for previous ischemic stroke, intracranial hemorrhage in the setting of Xarelto, and chronic atrial fibrillation who presented to the emergency department today after experiencing expressive aphasia. He was last hospitalized [facility] March 2017 with a similar presentation of expressive aphasia. Prior to that, he was reportedly hospitalized March 12 in the [facility]. He was hospitalized for similar symptoms. He also reportedly received TPA. Currently he is taking Plavix but not aspirin. He reports failing warfarin as an outpatient due to difficulty with bleeding while living in [place]. Hospital Course Hospital Course: He was admitted for possible stroke. Brain MRI showed no acute abnormalites, typically no acute infarction. His symptoms resolved within 24 hours. He was seen by cardiology. A RUBÉN was recommended, but unobtainable here. Cardiology recommended a transthoracic echocardiogram and follow-up at [place] where he underwent a placement of his Watchman device. We were unable to complete the transthoracic echocardiogram while he was here. He and his expressed great desire to be discharged. His hospital stay was uneventful. He was not discharged on a statin due to previous intolerance to Lipitor. Physical Exam Vital Signs: Temp Pulse Resp BP Pulse Ox 97.9 F 74 17 168/107 H 100 05/28/17 12:09 05/28/17 14:00 05/28/17 12:09 05/28/17 12:09 05/28/17 12:09 Intake & Output 05/27/17 05/28/17 05/29/17 06:59 06:59 06:59 Intake Total 1100 592 Balance 1100 592 General appearance: PRESENT: no acute distress, well-developed, well-nourished Head exam: PRESENT: atraumatic, normocephalic Neck exam: ABSENT: carotid bruit, JVD, lymphadenopathy, thyromegaly Respiratory exam: PRESENT: clear to auscultation patrizia. ABSENT: rales, rhonchi, wheezes Cardiovascular exam: PRESENT: RRR. ABSENT: diastolic murmur, rubs, systolic murmur GI/Abdominal exam: PRESENT: normal bowel sounds, soft. ABSENT: distended, guarding, mass, organolmegaly, rebound, tenderness Neurological exam: PRESENT: alert, awake, oriented to person, oriented to place , oriented to time, oriented to situation, CN II-XII grossly intact. ABSENT: motor sensory deficit Psychiatric exam: PRESENT: appropriate affect, normal mood. ABSENT: homicidal ideation, suicidal ideation Results Laboratory Results: 05/28/17 06:42 05/28/17 06:42 05/28/17 05/28/17 06:42 06:42 WBC 6.9 RBC 5.43 Hgb 15.9 Hct 46.3 MCV 85 MCH 29.2 MCHC 34.3 RDW 14.5 H Plt Count 242 Sodium 140.5 Potassium 3.2 L Chloride 106 Carbon Dioxide 28 Anion Gap 7 BUN 12 Creatinine 0.70 Est GFR ( Amer) > 60 Est GFR (Non-Af Amer) > 60 Glucose 239 H Calcium 8.8 Phosphorus 3.5 Magnesium 1.9 Total Bilirubin 0.4 AST 21 ALT 26 Alkaline Phosphatase 85 Total Protein 5.9 L Albumin 3.0 L Triglycerides 138 Cholesterol 260.74 H LDL Cholesterol Direct 219 H VLDL Cholesterol 28.0 HDL Cholesterol 34 L 05/27/17 05/28/17 05/28/17 18:05 00:24 06:42 Troponin I < 0.012 < 0.012 < 0.012 Impressions: Head CT 05/27/17 00:00 IMPRESSION: NO ACUTE CHANGES OLD LEFT POSTERIOR TEMPORAL INFARCT EVIDENCE OF ACUTE STROKE: NO. Head MRI 05/27/17 00:00 IMPRESSION: Stable, chronic changes. EVIDENCE OF ACUTE STROKE: NO. Head CTA 05/27/17 10:19 IMPRESSION: Widely patent carotid bifurcations and cervical internal carotid arteries. Cervical vertebral arteries are unremarkable in the field of view Small right distal MCA branches in the posterior sylvian fissure, similar compared to MRA 04/01/2017. 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 Qualifiers PATEINT BEING DISCHARGED WITH ANY OF THE FOLLOWING DIAGNOSIS?: No Stroke Pt being discharged on Anti-coagulation therapy?: No Reason(s) for not prescribing Anti-coagulation therapy:: Drug intolerance Plan Time Spent: Less than 30 Minutes
[2017-05-28 16:38] VITALS: BP 151/96
--- NOTE | 2017-05-30 13:43 | PDOC PROGRESS REPORT ---
Subjective Progress Note for:: 05/28/17 Subjective:: Patient seems to be doing better significant gradual improvement. Patient claims he is at baseline. Pt is denying any chest arm or neck discomfort. Patient denying any PND, orthopnea. Patient denied any sustained palpitations, dizziness, syncope, near syncope. Patient denying any fever chills. Patient denying any other significant discomfort. Patient is maintaining chronic atrial fibrillation. Review of systems: Rest review of systems negative. Medications: Medications have been reviewed. Reason For Visit: ACUTE CELEBROVASCULAR ACCIDENT Physical Exam Vital Signs: Temp Pulse Resp BP Pulse Ox 98.1 F 79 19 151/96 H 96 05/28/17 16:38 05/28/17 16:38 05/28/17 16:38 05/28/17 16:19 05/28/17 16:38 Intake & Output 05/27/17 05/28/17 05/29/17 06:59 06:59 06:59 Intake Total 1100 992 Balance 1100 992 Exam: GENERAL: well-nourished and in no acute distress. Alert and oriented x3 HEAD: Atraumatic, normocephalic. EYES: Pupils equal round and reactive to light, extraocular movements intact, sclera anicteric, conjunctiva are normal. ENT: TMs normal, nares patent, oropharynx clear without exudates. Moist mucous membranes. No oral ulcerations or bleeding gums noted NECK: supple without lymphadenopathy. Trachea is central. No cervical or axillary lymphadenopathy noted. Carotids are 2+, JVD WNL LUNGS: Respiration seems nonlabored, no significant accessory muscle action noted. Breath sounds clear to auscultation bilaterally and equal noted. No wheezes rales or rhonchi noted. No significant dullness noted on percussion. CHEST: Palpation of the chest wall shows no significant chest wall tenderness. No other significant abnormalities noted. 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 ABDOMEN: Soft, no significant tenderness appreciated, normoactive bowel sounds. No guarding, no rebound. No rigidity noted . No masses appreciated. EXTREMITIES: Pedal pulses are 1-2+, no calf tenderness noted. No clubbing or cyanosis.trace to 1+ pedal edema noted NEUROLOGICAL: Patient has significant peripheral neuropathy mainly motor wasting and weakness and some sensory loss. His speech has normalized by the time I saw him. No other significant focal neurological deficit noted. PSYCH: Normal mood, normal affect. Judgment and insight within normal limits. SKIN: No significant ecchymosis, rash, ulcerations or signs of pruritus noted. MUSCULOSKELETAL EXAM: No significant joint swelling noted. Patient has wasting of muscles secondary to peripheral neuropathy. Results Laboratory Results: 05/28/17 06:42 05/28/17 06:42 05/28/17 05/28/17 06:42 06:42 WBC 6.9 RBC 5.43 Hgb 15.9 Hct 46.3 MCV 85 MCH 29.2 MCHC 34.3 RDW 14.5 H Plt Count 242 Sodium 140.5 Potassium 3.2 L Chloride 106 Carbon Dioxide 28 Anion Gap 7 BUN 12 Creatinine 0.70 Est GFR ( Amer) > 60 Est GFR (Non-Af Amer) > 60 Glucose 239 H Calcium 8.8 Phosphorus 3.5 Magnesium 1.9 Total Bilirubin 0.4 AST 21 ALT 26 Alkaline Phosphatase 85 Total Protein 5.9 L Albumin 3.0 L Triglycerides 138 Cholesterol 260.74 H LDL Cholesterol Direct 219 H VLDL Cholesterol 28.0 HDL Cholesterol 34 L 05/27/17 05/28/17 05/28/17 18:05 00:24 06:42 Troponin I < 0.012 < 0.012 < 0.012 EKG Comments: Shows chronic atrial fibrillation with controlled heart rate response. Impressions: Head CT 05/27/17 00:00 IMPRESSION: NO ACUTE CHANGES OLD LEFT POSTERIOR TEMPORAL INFARCT EVIDENCE OF ACUTE STROKE: NO. Head MRI 05/27/17 00:00 IMPRESSION: Stable, chronic changes. EVIDENCE OF ACUTE STROKE: NO. Head CTA 05/27/17 10:19 IMPRESSION: Widely patent carotid bifurcations and cervical internal carotid arteries. Cervical vertebral arteries are unremarkable in the field of view Small right distal MCA branches in the posterior sylvian fissure, similar compared to MRA 04/01/2017. 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 Assessment & Plan - Diagnosis (1) Acute CVA (cerebrovascular accident) Is this a current diagnosis for this admission?: Yes (2) Atrial fibrillation, chronic Is this a current diagnosis for this admission?: Yes (3) Expressive aphasia Is this a current diagnosis for this admission?: Yes (4) Hypertension Qualifiers: Hypertension type: essential hypertension Qualified Code(s): I10 - Essential (primary) hypertension Is this a current diagnosis for this admission?: Yes (5) Uncontrolled diabetes mellitus Qualifiers: Diabetes mellitus type: other specified (including NADIRA) Diabetes mellitus complication status: with unspecified complications Diabetes mellitus ferry terminal agent insulin use: unspecified ferry terminal agent insulin use status Qualified Code(s): E13.8 - Other specified diabetes mellitus with unspecified complications; E13.65 - Other specified diabetes mellitus with hyperglycemia; E13.65 - Other specified diabetes mellitus with hyperglycemia; E13.65 - Other specified diabetes mellitus with hyperglycemia; E13.65 - Other specified diabetes mellitus with hyperglycemia Is this a current diagnosis for this admission?: Yes (6) Coronary artery disease Qualifiers: Coronary Disease-Associated Artery/Lesion type: [place] artery Associated angina: angina presence unspecified Is this a current diagnosis for this admission?: Yes (7) History of cerebral hemorrhage Is this a current diagnosis for this admission?: Yes - Notes Notes: Patient has improved significantly since presentation. Believe most of his presentation could have been related to hyperglycemia. Patient claims that he was not able to take his insulin because of insurance issues. His expressive aphasia has resolved. Blood pressure now under better control. Diabetes also under better control. As regards coronary artery disease is symptomatically stable. Patient does have history of cerebrovascular hemorrhage. Believe that was related to a complication from chronic anticoagulation due to Xarelto. Patient subsequently had a watchman device placed. Review of literature of watchman device suggest that it is quite effective in preventing thromboembolism. Patient has been recommended to have a follow-up appointment with the [place] emergency room specialist who had placed it. At this point recommend Plavix therapy. Patient to report any further problems. Patient should try to get on statin therapy. This was explained. Patient was seen prior to discharge and was advised to get the echocardiogram done but due to scheduling issue could not be performed. Will try to get it done in the office. - Time Time with patient: Greater than 35 minutes - CODE STATUS was discussed, patient remains full code. Surrogate decision-maker unchanged. Multiple medical problems were addressed. More than 50% of the time spent coordinating care, discussing management plans with involved caregivers. Management plans discussed with involved personnels. Medical decision making was of moderate to high complexity, patient's has multiple comorbidities. Medications reviewed and adjusted accordingly: Yes
== END 2017-05-28 06:00 | disposition home or self-care (01) | DRG 93 ==
LOC: ER 10:01 → EH 14:03 → 3S 21:58
PROVIDERS: ADMIT Emergency Medicine; ATTEND Emergency Medicine
DX: R47.01 Aphasia (principal); R29.705 NIHSS score 5; E11.65 Type 2 diabetes mellitus with hyperglycemia; I48.2 Chronic atrial fibrillation; I50.9 Heart failure, unspecified; I25.10 Atherosclerotic heart disease of native coronary artery without angina pectoris; E78.00 Pure hypercholesterolemia, unspecified; I11.0 Hypertensive heart disease with heart failure; I73.9 Peripheral vascular disease, unspecified; I70.1 Atherosclerosis of renal artery; G40.909 Epilepsy, unspecified, not intractable, without status epilepticus; I25.2 Old myocardial infarction; Z79.01 Long term (current) use of anticoagulants; Z86.73 Personal history of transient ischemic attack (TIA), and cerebral infarction without residual deficits; Z79.84 Long term (current) use of oral hypoglycemic drugs
CPT/HCPCS: 36415; 70450; 70496; 70551; 71045; 80053; 80061; 82550; 82553; 82962; 83036; 83735; 84100; 84484; 85025; 85027; 85610; 85730; 93005; 93010; 94640; 96360; 99291; G8978-GP; G8979-GP; G8980-GP; G8987-GO; G8988-GO; G8989-GO; J0360; J1650; J1815; J7030; J7620

== ENCOUNTER → 2020-06-02 | Outpatient (CLI) | payer OTHER, MEDICARE ==
[2020-06-02 10:38] LABS: ABSOLUTE BASOPHILS # (AUTO) 0.1 10^3/uL (0.0-0.2); ABSOLUTE LYMPHOCYTES (AUTO) 1.5 10^3/uL (0.5-4.7); ABSOLUTE MONOCYTES (AUTO) 0.5 10^3/uL (0.1-1.4); ABSOLUTE NEUT (AUTO) 3.3 10^3/uL (1.7-8.2); BASOPHILS % (AUTO) 1.7 % (0-2); EOSINOPHILS % (AUTO) 15.2 % (0-6); HEMATOCRIT 36.3 % (37.9-51.0); HEMOGLOBIN 11.6 g/dL (13.5-17.0); LYMPHOCYTES % (AUTO) 23.2 % (13-45); MEAN CORPUSCULAR HEMOGLOBIN 28.2 pg (27.0-33.4); MEAN CORPUSCULAR HGB CONC 31.9 g/dL (32.0-36.0); MEAN CORPUSCULAR VOLUME 88 fl (80-97); MONOCYTES % (AUTO) 7.2 % (3-13); PLATELET COUNT 251 10^3/uL (150-450); RED BLOOD COUNT 4.11 10^6/uL (4.35-5.55); RED CELL DISTRIBUTION WIDTH 15.1 % (11.5-14.0); SEGMENTED NEUTROPHILS % (AUTO) 52.7 % (42-78); TOTAL CELLS COUNTED % (AUTO) 100 %; WHITE BLOOD COUNT 6.3 10^3/uL (4.0-10.5)
[2020-06-02 10:42] LABS: ALBUMIN 3.4 g/dL (3.5-5.0); ALKALINE PHOSPHATASE 87 U/L (38-126); ANION GAP 9 (5-19); ASPARTATE AMINO TRANSFERASE 24 U/L (17-59); BILIRUBIN,DIRECT 0.2 mg/dL (0.0-0.4); BILIRUBIN,TOTAL 0.5 mg/dL (0.2-1.3); BLOOD UREA NITROGEN 25 mg/dL (7-20); CALCIUM 8.8 mg/dL (8.4-10.2); CARBON DIOXIDE 26 mmol/L (22-30); CHLORIDE 106 mmol/L (98-107); GLUCOSE 111 mg/dL (75-110); PHOSPHORUS 4.3 mg/dL (2.5-4.5); POTASSIUM 4.3 mmol/L (3.6-5.0); TOTAL PROTEIN 6.9 g/dL (6.3-8.2)
[2020-06-02 10:48] LABS: URINE CREATININE 72.5 mg/dL (22-328)
[2020-06-02 11:51] LABS: UR PRO/CREAT RATIO RESULT 9.8 mg/mg (0.0-0.2); URINE PROTEIN 714.1 mg/dL (<12)
== END ==
LOC: OD 08:29
DX: I12.9 Hypertensive chronic kidney disease with stage 1 through stage 4 chronic kidney disease, or unspecified chronic kidney disease (principal); N18.4 Chronic kidney disease, stage 4 (severe); E83.30 Disorder of phosphorus metabolism, unspecified
CPT/HCPCS: 36415; 80053; 82570; 84100; 84156; 85025